=== PATIENT | female | born 1975 | race Caucasian/White ===

== ENCOUNTER → 2019-12-07 14:40 | Outpatient (CLI) | payer OTHER, SELFPAY ==
--- NOTE | ~2019-12-07 | XR_ITS ---
XR chest 2V 12/07/2019 15:19 Indication: Shortness of breath Procedure: 2 view chest Comparison: No prior studies for comparison. Findings: Heart size normal. No focal air space disease, pulmonary edema, pleural effusion or suspect ed pneumothorax. Impression: 1: No acute cardiopulmonary disease. Reviewed, dictated and finalized at location B. Impression: 1: No acute cardiopulmonary disease.
== END ==
PROVIDERS: PCP Internal Medicine; Visit Provider Internal Medicine
DX: J06.9 Acute upper respiratory infection, unspecified (principal)
CPT/HCPCS: 71046

== ENCOUNTER 2019-12-07 15:11 | Emergency (ER) | payer OTHER, SELFPAY ==
--- NOTE | 2019-12-07 15:22 | ED.EAR ---
HPI - Ear Problem General Chief complaint: Ear Stated complaint: ear pain/neck pain Time Seen by Provider: 12/07/19 15:33 Source: patient and RN notes reviewed Mode of arrival: ambulatory Limitations: no limitations History of Present Illness HPI Narrative: 44-year-old female presents concern for bilateral ear pain, worse on the right, feeling of swollen glands. Reports she has had a 2-month history of sinus congestion, pressure, drainage for which she had a Z-Javad which she finished 5 days ago. She reports some improvement in her symptoms, however symptoms did not resolve. Reports symptoms have worsened with ear pain. She denies fever, malaise, decreased hearing. MD Complaint: ear pain Related Data Home Medications Medication Instructions Recorded Confirmed cetirizine [Zyrtec] 10 mg PO DAILY 12/07/19 12/07/19 omeprazole 20 mg PO DAILY 12/07/19 12/07/19 Allergies Allergy/AdvReac Type Severity Reaction Status Date / Time Penicillins Allergy Rash Verified 12/07/19 15:39 Review of Systems Review of Systems: Narrative: CONSTITUTIONAL: Denies malaise, chills, sweats, or fever. EYES: Denies visual changes, redness, or discharge. ENT: Reports rhinorrhea, congestion, sinus pain, otalgia. Denies. CARDIOVASCULAR: Denies chest pain, palpitations, or edema. RESPIRATORY: Reports cough. Denies dyspnea. GASTROINTESTINAL: Denies abdominal pain, nausea, vomiting, diarrhea SKIN: Denies rash or itching. MUSCULOSKELETAL: Denies myalgia. NEUROLOGIC: Denies headache. All systems reviewed & are unremarkable except as noted in HPI and below PMFSH Comments At time of signature, agree with nursing past medical, surgical, social and family history. There is no relevant family history pertinent to the presenting complaint Exam Narrative: Exam Narrative: GENERAL: Well-appearing, well-nourished, and in no acute distress. HEAD: Normocephalic EYES: PERRLA, conjunctivae clear ENT: Nares clear, turbinates edematous and erythematous, sinus tenderness. Mucous membranes moist. Left TM pearly montague with dull light reflex, right TM erythematous and bulging; no tragal tenderness. Oropharynx not erythematous without lesions. Tonsils not enlarged and without exudate, no drooling, no hoarseness, no trismus, uvula midline. NECK: Supple. No lymphadenopathy CHEST: Clear to auscultation, breath sounds equal. No wheezing, rhonchi, rales, or stridor. No respiratory distress, speaks in full sentences. HEART: Regular rate and rhythm. No murmur heard. SKIN: Warm, dry, no rash. NEURO: Alert and oriented x3. PSYCH: Normal mood and affect Course Course Emergency Course: Patient is aware of diagnosis, understands and agrees to treatment plan. Anticipatory guidance given. Patient agrees to follow-up as directed and is aware of reasons to seek care at the emergency department. Portions of this record may have been created with voice recognition software Vital Signs Vital signs: Vital Signs Temperature 99.3 F 12/07/19 15:24 Pulse Rate 84 12/07/19 15:24 Respiratory Rate 16 12/07/19 15:24 Blood Pressure 122/90 12/07/19 15:24 Pulse Oximetry 98 12/07/19 15:24 Temperature 99.3 F 12/07/19 15:24 Pulse Rate 84 12/07/19 15:24 Respiratory Rate 16 12/07/19 15:24 Blood Pressure 122/90 12/07/19 15:24 Pulse Oximetry 98 12/07/19 15:24 Reviewed. Medical Decision Making MDM Narrative Medical decision making narrative: Differential diagnosis considered: Dennis virus, strep pharyngitis, allergic rhinitis, upper respiratory tract infection, sinusitis, rhinosinusitis, nasopharyngitis. viral pharyngitis, otitis media, otitis externa, pneumonia, bronchitis, viral cough syndrome, viral syndrome, and influenza. Exam findings show no acute concerns or changes; patient is non-toxic appearing and is in no distress. Patient is appropriate for outpatient treatment and follow-up. Vital Signs Vital Signs: Vital Signs Temperature 99.3 F 12/07/19 15:24
[2019-12-07 15:24] VITALS: BP 122/90; PULSE 84; RESP 16; TEMP 37.4; O2SAT 98
== END 2019-12-07 15:48 | disposition home or self-care (01) ==
PROVIDERS: Emergency Provider Nurse Practitioner; PCP Internal Medicine
DX: H66.001 Acute suppurative otitis media without spontaneous rupture of ear drum, right ear (principal); J01.90 Acute sinusitis, unspecified; Z85.41 Personal history of malignant neoplasm of cervix uteri; Z92.21 Personal history of antineoplastic chemotherapy; Z92.3 Personal history of irradiation
CPT/HCPCS: 99213; G0463

== ENCOUNTER 2019-12-23 08:32 | Emergency (ER) | payer OTHER, SELFPAY ==
[2019-12-23 08:36] VITALS: BP 114/83; PULSE 94; RESP 16; TEMP 36.4; O2SAT 99
--- NOTE | 2019-12-23 08:44 | ED.GENADULT ---
HPI - General Adult General Chief complaint: Ear Stated complaint: ear pain/pressure Time Seen by Provider: 12/23/19 08:50 Source: patient and RN notes reviewed Mode of arrival: ambulatory Limitations: no limitations History of Present Illness HPI narrative: 44-year-old female complains of bilateral otalgia, pressure, clogged feeling, facial pressure, and intermittent decrease hearing for the past 2 months. Estehpania says that she has been treated for ear infections with azithromycin and Levaquin with relief but symptoms returns shortly after treatment. Symptoms increased over the past 24 hours. Zyrtec D with little relief. Denies itching or drainage. Denies URI symptoms. No facial swelling. Denies rhinorrhea and nasal congestion. Intermittent sore throat. No high fevers, drooling, neck or throat swelling. No chest pain or shortness of breath. Remains active. Denies being , LMP 6 years ago. The patient reports she have not been diagnosed with COVID-19. The patient reports she is not waiting for the results of a COVID-19 lab test. The patient reports she do not have chills, weakness, or fatigue. The patient reports no she do not have a new or worsening cough or shortness of breath. Denies chest pain. The patient reports she do not have any loss of taste, nausea, vomiting, abdominal pain, and diarrhea. Tolerating po intake well. Denies recent traveling. Denies concerns for COVID-19 or exposures been home with limited outdoor exposure except for essential household needs and return home. At this time, patient is not suspected of having COVID-19. Some parts of this dictation were generated by voice recognition software and may contain typographical and/or grammatical inaccuracies. Related Data Home Medications Medication Instructions Recorded Confirmed omeprazole 20 mg PO DAILY 12/07/19 12/23/19 Allergies Allergy/AdvReac Type Severity Reaction Status Date / Time Penicillins Allergy Rash Verified 12/07/19 15:39 erythromycin base AdvReac Chest Pain Verified 12/23/19 09:04 Review of Systems Review of Systems: Narrative: CONSTITUTIONAL: Denies fever, chills, sweats. EYES: Denies visual changes, redness, discharge. ENT: Complains of sore throat, otalgia, bilateral ear pressure, clogged, intermittent decrease hearing. Denies rhinorrhea, congestion, tinnitus. CARDIOVASCULAR: Denies chest pain, palpitations, edema. RESPIRATORY: Denies dyspnea, wheezing, cough. GASTROINTESTINAL: Denies abdominal pain, nausea, vomiting, diarrhea. GENITOURINARY: Denies dysuria, hematuria, abnormal discharge. SKIN: Denies rash or itching. MUSCULOSKELETAL: Denies acute back pain, joint pain, or myalgia. NEUROLOGIC: Denies numbness or focal weakness. PSYCHIATRIC: Denies anxiety or depression. All systems reviewed & are unremarkable except as noted in HPI and below. [facility] Past Medical History Medical History (Updated 12/23/19 @ 09:12 by DIANNA Tubbs) Cervical cancer That included lymph nodes and received radiation and chemo delivery delivered Enlarged liver Hernia Surgical History Surgical History (Updated 12/23/19 @ 09:03 by DIANNA Tubbs) H/O section X3 Family History Family History (Updated 12/23/19 @ 09:04 by DIANNA Tubbs) Father Hypertension Cerebrovascular accident Mother Diabetes mellitus Paranoid schizophrenia Social History Social History (Updated 12/23/19 @ 09:05 by DIANNA Tubbs) Smoking status: Former smoker Tobacco type: cigarettes Second hand tobacco smoke exposure: No Smoking end date: 02/17/99 Alcohol intake: never Substance use: never Living arrangements: with family Occupation/Education: unemployed Gender identity (if verbalized by the patient): Female Sexual Orientation (if Verbalized by the Patient): Straight or Heterosexual Comments At time of signature, agree with nurse past medical, surgical, social
== END 2019-12-23 09:15 | disposition home or self-care (01) ==
PROVIDERS: Emergency Provider Nurse Practitioner Family; PCP Internal Medicine
DX: H66.003 Acute suppurative otitis media without spontaneous rupture of ear drum, bilateral (principal); J06.9 Acute upper respiratory infection, unspecified; Z87.891 Personal history of nicotine dependence; Z85.41 Personal history of malignant neoplasm of cervix uteri
CPT/HCPCS: 87081; 87880; 99213; G0463

== ENCOUNTER 2020-01-31 16:30 | Emergency (ER) | payer OTHER, SELFPAY ==
--- NOTE | ~2020-01-31 | XR_ITS ---
EXAMINATION: XR toe 1st RT min 2V DATE: 01/31/2020 16:58 INDICATION: Spot under the toenail at the right great toe. TECHNIQUE: Dorsal plantar, lateral and oblique views of the right great toe were obtained. COMPARISON: None FINDINGS: Alignment is normal. No fracture. Joint spaces are normal. No cortical erosions or periosteal reactio n. Soft tissues are unremarkable. IMPRESSION: Negative right great toe radiographs. Reviewed, dictated and finalized at location B. SIFICATIONS OFFICER CC/CM
[2020-01-31 16:38] VITALS: BP 131/87; PULSE 96; RESP 20; TEMP 36.7; O2SAT 100
--- NOTE | 2020-01-31 17:10 | ED.SKABFB ---
HPI - Skin/Abscess/Foreign Bdy General Chief complaint: Skin/Abscess/Foreign Body Stated complaint: spot under big toe nail Time Seen by Provider: 01/31/20 17:10 Source: patient and RN notes reviewed Mode of arrival: ambulatory Limitations: no limitations History of Present Illness HPI narrative: 44-year-old female who presents to [facility] care with complaints of having area of discoloration under lateral aspect of her right toenail and her doctor wants her to have x-ray done. Patient states that area has been there for about a month with no known injury to area. Patient states no pain to right great toe, no discoloration of her nail noted, no redness to tissue of right great toe or nail bed, patient denies any pain. MD complaint: discoloration (to right great toenail ) Onset (ago): month(s) (1month) Tetanus up to date: unsure Location: L foot (left great toe) Associated symptoms: denies other symptoms Treatments prior to arrival: none Related Data Home Medications Medication Instructions Recorded Confirmed omeprazole 20 mg PO DAILY 12/07/19 01/31/20 sulfamethoxazole-trimethoprim 1 tablet PO Q12H 01/31/20 01/31/20 [Bactrim DS] Allergies Allergy/AdvReac Type Severity Reaction Status Date / Time Penicillins Allergy Rash Verified 01/31/20 17:05 erythromycin base AdvReac Chest Pain Verified 01/31/20 17:05 Review of Systems Review of Systems: Narrative: CONSTITUTIONAL: Denies fever, chills, or sweats. EYES: Denies visual changes, redness, or discharge. ENT: Denies rhinorrhea, congestion, sore throat, or otalgia. CARDIOVASCULAR: Denies chest pain, palpitations, or edema. RESPIRATORY: Denies cough or dyspnea. GASTROINTESTINAL: Denies abdominal pain, nausea, vomiting, or diarrhea. GENITOURINARY: Denies dysuria or hematuria. SKIN: Denies rash or itching.horizontal area of discoloration to lateral area under right great toenail, no redness of tissue or any pain MUSCULOSKELETAL: Denies back pain, joint pain, or myalgia. NEUROLOGIC: Denies headache, numbness, or weakness. PSYCHIATRIC: Denies anxiety or depression. All systems reviewed & are unremarkable except as noted in HPI and below [facility] Past Medical History Medical History (Updated 02/01/20 @ 00:00 by Lito Padilla) Cervical cancer That included lymph nodes and received radiation and chemo delivery delivered Enlarged liver Hernia Surgical History Surgical History (Updated 12/23/19 @ 09:03 by DIANNA Tubbs) H/O section X3 Family History Family History (Updated 12/23/19 @ 09:04 by DIANNA Tubbs) Father Hypertension Cerebrovascular accident Mother Diabetes mellitus Paranoid schizophrenia Social History Social History (Updated 12/23/19 @ 09:05 by DIANNA Tubbs) Smoking status: Former smoker Tobacco type: cigarettes Second hand tobacco smoke exposure: No Smoking end date: 02/17/99 Alcohol intake: never Substance use: never Gender identity (if verbalized by the patient): Female Comments At time of signature, agree with nursing past medical, surgical, social and family history. There is no relevant family history pertinent to the presenting complaint Exam Narrative: Exam Narrative: GENERAL: Well-appearing, well-nourished, and in no acute distress. HEAD: Normocephalic, atraumatic. EYES: PERRLA and EOMI. ENT: Nares clear, no rhinorrhea or epistaxis. Mucous membranes moist. NECK: Supple.no lymphadenopathy CHEST: Clear to auscultation. No respiratory distress.SAO2 100% on room air HEART: Regular rate and rhythm. No murmur heard. Normal peripheral pulses. ABDOMEN: Soft, nontender, nondistended, normal active bowel sounds. EXTREMITIES: Normal range of motion. No edema. SKIN: Warm, dry, no rash. brownish horizontal area of discoloration to the lateral area under right first toenail, no discoloration of nail, no pain to toe or any redness of nail bed or surrounding tissue, patient denies any
== END 2020-01-31 17:29 | disposition home or self-care (01) ==
PROVIDERS: Emergency Provider Registered Nurse; PCP Physician Assistant
DX: L60.8 Other nail disorders (principal); Z87.891 Personal history of nicotine dependence; Z85.41 Personal history of malignant neoplasm of cervix uteri
CPT/HCPCS: 73660; 99213; G0463

== ENCOUNTER 2024-02-07 19:34 | Emergency (ER) | payer OTHER, SELFPAY ==
[2024-02-07 19:44] VITALS: BP 132/74; PULSE 66; RESP 16; TEMP 37.2; O2SAT 98
--- NOTE | 2024-02-07 19:49 | ED_ITS ---
HPI - Ear Problem General Chief complaint: Ear Stated complaint: Right Ear Problem Time Seen by Provider: 02/07/24 19:49 Source: patient, RN notes reviewed and old records reviewed Mode of arrival: ambulatory Limitations: no limitations History of Present Illness HPI Narrative: 48 year old female presents to [facility] care with 3 day history of right ear pain and right tonsil pain. Patient reports that she took two doses of Bactrim that she had at home for her symptoms and has taken some Tylenol and is also using her nasal spray for her symptoms. Patient reports no known fevers chills or sweats or any body aches.. MD Complaint: ear pain Location: right ear Duration: constant Severity: severe Discharge from ear: Reports no Treatment prior to arrival: oral analgesic and other (one dose of Bactrim) Related Data Home Medications ?Medication ?Instructions ?Recorded ?Confirmed ?Last Taken ?Type omeprazole 20 mg capsule,delayed 20 mg PO DAILY 12/07/19 01/31/20 Unknown History release albuterol sulfate 90 mcg/actuation 2 puff inhalation Q4-6H PRN 02/07/24 Unknown History aerosol inhaler shortness of breath or wheezing empagliflozin 25 mg tablet 25 mg PO DAILY 02/07/24 Unknown History (Jardiance) fluticasone propionate 50 2 spray intranasal DAILY 02/07/24 Unknown History mcg/actuation nasal spray,suspension sitagliptin phosphate 100 mg 100 mg PO DAILY 02/07/24 Unknown History tablet (Januvia) Allergies Allergy/AdvReac Type Severity Reaction Status Date / Time Penicillins Allergy Rash Verified 02/07/24 19:53 erythromycin base AdvReac Chest Pain Verified 02/07/24 19:53 Review of Systems Review of Systems: CONSTITUTIONAL: Denies malaise, chills, sweats, or fever. EYES: Denies visual changes, redness, or discharge. ENT: Reports rhinorrhea, congestion, no sinus pain, right otalgia and right side throat pain. CARDIOVASCULAR: Denies chest pain, palpitations, or edema. RESPIRATORY: Reports no acute cough.? Denies dyspnea. GASTROINTESTINAL: Denies abdominal pain, nausea, vomiting, diarrhea SKIN: Denies rash or itching. MUSCULOSKELETAL: Denies myalgia. NEUROLOGIC: Denies headache. All systems reviewed & are unremarkable except as noted in HPI and below PMFSH Past Medical History Medical History (Updated 02/09/24 @ 19:31 by Faina Oquendo NP) Ear infection Diabetes Cervical cancer That included lymph nodes and received radiation and chemo delivery delivered Hernia Enlarged liver Surgical History Surgical History (Updated 12/23/19 @ 09:03 by DIANNA uTbbs) H/O section X3 Family History Family History (Updated 12/23/19 @ 09:04 by DIANNA Tubbs) Father Hypertension Cerebrovascular accident Mother Diabetes mellitus Paranoid schizophrenia Social History Social History (Updated 12/23/19 @ 09:05 by DIANNA Tubbs) Smoking status: Former smoker Tobacco type: cigarettes Second hand tobacco smoke exposure: No Smoking end date: 02/17/99 Alcohol intake: never Substance use: never Living arrangements: with family Occupation/Education: unemployed Gender identity (if verbalized by the patient): Female Sexual Orientation (if Verbalized by the Patient): Straight or Heterosexual Comments At time of signature, agree with nursing past medical, surgical, social and family history. There is no relevant family history pertinent to the presenting complaint Exam Narrative: GENERAL: Well-appearing, well-nourished, and in no acute distress. HEAD: Normocephalic EYES: PERRLA, conjunctivae clear ENT: Nares clear, turbinates edematous and erythematous, clear discharge. Mucous membranes moist.Right TM red and bulging, Left TM pearly montague with dull light reflex ; no tragal tenderness. Oropharynx erythematous without lesions. Tonsils not enlarged and without exudate, no drooling, no hoarseness, no trismus, uvula midline.some post nasal drainage NECK: Supple. No lymphadenopathy CHEST: Clear to auscultation, breath sounds equal. No wheezing, rhonchi, rales, or stridor. No respiratory distress, speaks in full sentences.SAO2 98% on room air HEART: Regular rate and rhythm. No murmur heard. SKIN: Warm, dry, no rash. NEURO: Alert and oriented x3. PSYCH: Normal mood and affect Course Course Emergency Course: Patient is aware of diagnosis, understands and agrees to treatment plan.? Anticipatory guidance given.? Patient agrees to follow-up as directed and is aware of reasons to seek care at the emergency department. Portions of this record may have been created with voice recognition software Level of Care: Express Care Visit Vital Signs Vital signs: Vital Signs Temperature 37.2 C 02/07/24 19:44 Pulse Rate 66 02/07/24 19:44 Respiratory Rate 16 02/07/24 19:44 Blood Pressure 132/74 02/07/24 19:44 Pulse Oximetry 98 02/07/24 19:44 Oxygen Delivery Room Air 02/07/24 19:44 Temperature 37.2 C 02/07/24 19:44 Pulse Rate 66 02/07/24 19:44 Respiratory Rate 16 02/07/24 19:44 Blood Pressure 132/74 02/07/24 19:44 Pulse Oximetry 98 02/07/24 19:44 Oxygen Delivery Room Air 02/07/24 19:44 Reviewed Medical Decision Making Differential Diagnosis Differential Diagnosis: URI,otitis media, pharyngitis, viral infection Medical Records Medical records reviewed: Yes I reviewed the external patient's medical records. Vital Signs Vital Signs: Vital Signs Temperature 37.2 C 02/07/24 19:44 Pulse Rate 66 02/07/24 19:44 Respiratory Rate 16 02/07/24 19:44 Blood Pressure 132/74 02/07/24 19:44 Pulse Oximetry 98 02/07/24 19:44 Oxygen Delivery Room Air 02/07/24 19:44 Temperature 37.2 C 02/07/24 19:44 Pulse Rate 66 02/07/24 19:44 Respiratory Rate 16 02/07/24 19:44 Blood Pressure 132/74 02/07/24 19:44 Pulse Oximetry 98 02/07/24 19:44 Oxygen Delivery Room Air 02/07/24 19:44 Critical Care Time Critical Care Time Critical Care Time: No Discharge Plan Discharge Clinical Impression: Otitis media, right Qualifiers: Otitis media type: serous Chronicity: acute Recurrence: not specified as recurrent Qualified Code(s): H65.01 - Acute serous otitis media, right ear Patient Disposition: Home, Self-Care Condition: Stable Instructions: Antibiotic Form, Ear Infection (GEN) Additional Instructions: Increase fluids especially juices and water [id number] cough and cold medicine of your choice for your symptoms Zyrtec or Claritin daily Tylenol or ibuprofen for any fever pain heat to the face 20-30 minutes 4-6 times a day for pain Salt water gargles, throat lozenges or throat sprays as desired Antibiotic as directed--finished the medication If your symptoms persist, change or worsen significantly before you can contact your personal physician then please, without delay, go to the emergency department for further evaluation. Follow-up with PCP in 7-10 days or sooner if needed Follow up with PCP soon in regards to your blood pressure which is elevated above threshold for referral. Blood pressure above 120/80 may indicate pre- hypertension. 132/74 Patient Language: Faroese Prescriptions: New azithromycin 250 mg tablet See Rx Instructions .ROUTE .COMPLEX Qty: 6 0RF Rx Instructions: For 250 mg dose pack: take 500 mg today (day 1), then 250 mg for 4 days (days 2-5) No Action omeprazole 20 mg capsule,delayed release(DR/EC) 20 mg PO DAILY Jardiance 25 mg tablet 25 mg PO DAILY Januvia 100 mg tablet 100 mg PO DAILY albuterol sulfate 90 mcg/actuation HFA aerosol inhaler 2 puff INHALATION Q4-6H PRN (Reason: shortness of breath or wheezing) fluticasone propionate 50 mcg/actuation spray,suspension 2 spray INTRANASAL DAILY Follow-up/Referrals: Ryley,ROSEY Carpenter [Primary Care Provider] - Time of Disposition: 19:59 Quality Nicolas Coma Scale Eyes: Open Verbal: Oriented and Alert Motor: Follows Commands Nicolas Coma Total Score: 15
== END 2024-02-07 20:09 | disposition home or self-care (01) ==
PROVIDERS: Emergency Provider Registered Nurse; PCP Physician Assistant
DX: H65.01 Acute serous otitis media, right ear (principal); Z87.891 Personal history of nicotine dependence; E11.9 Type 2 diabetes mellitus without complications; Z79.84 Long term (current) use of oral hypoglycemic drugs; Z85.41 Personal history of malignant neoplasm of cervix uteri; Z92.21 Personal history of antineoplastic chemotherapy; Z92.3 Personal history of irradiation
CPT/HCPCS: 99203; G0463

== ENCOUNTER 2024-05-29 16:40 | Emergency (ER) | payer OTHER, SELFPAY ==
--- OUTSIDE RECORDS SUMMARY | 2024-05-29 16:43 | XMS_ITS | Referral Summary ---
Author Organization [facility] Address [address] [place] [address] Care Team Providers Care Care Mgr Name Role Phone Jourdan Hedrick Primary Care Provider [phone] Encounters Date Type Department Care Team Description 05/05/2024 1:00 PM CDT Office Visit [facility] Diabetes Endocrine Care at [address] [address] Annetta Kearney, Type 2 diabetes mellitus with hyperglycemia, without long-term current use of insulin (HCC) (Primary Dx) from Last 3 Months Allergies Active Allergy Reactions Criticality Noted Date Comments Ciprofloxacin Rash Medium 06/08/2020 Erythromycin Other (See comments) Reaction: Unknown, , Metronidazole Other (See comments) Low 02/25/2019 Yeast infection Gadolinium-Containing Contrast Media Unknown 01/07/2023 Contrast Media (Gadolinium-Based): (Other (Unspecified)) Iodinated Contrast Media Shortness of breath,Other (See comments) High Reaction: Short of breath, Throat Swelling, Lactose Unknown 07/16/2023 Penicillins Hives,Swelling Medium Reaction: Unknown, , Medications fluticasone propionate (FLONASE) 50 mcg/actuation nasal sprayIndication s:Nasal congestion,Anos mason Administer 2 sprays into each nostril daily 16 g 11 1 Active Jardiance 25 mg tablet 4 Active omeprazole (PriLOSEC) 20 mg capsule Take by mouth daily 4 Active albuterol HFA (PROVENTIL HFA,VENTOLIN HFA,PROAIR HFA) 90 mcg/actuation inhaler Inhale 2 puffs every 6 (six) hours as needed 4 Active magnesium citrate solution TAKE 150ML BY MOUTH TWICE DAILY NEEDED FOR CONSTIPATION 4 Active senna-docusate (PERICOLACE) 8.6-50 mg Take 1-2 pills nightly for constipation management. 180 tablet 3 4 Active polyethylene glycol (MIRALAX) 17 gram/dose bulk powder Take 1 capful daily as needed for constipation management. 595 g 3 4 Active nystatin cream Apply topically 2 (two) times a day 4 Active Dexcom G7 Outboard Technician misc Use as directed. 1 each 4 Active Additional Information Patient not taking.Reported on 05/05/2024 Dexcom G7 Sensor device Use as directed. Change sensor every 10 days. 3 each 4 Active Additional Information Patient not taking.Reported on 05/05/2024 hydrocortisone (ANUSOL-HC) 2.5 % rectal cream For hemorrhoid management, squeeze small amount into rectum using internal applicator and also apply small amount externally to rectum up to twice daily as needed. 28 g 5 4 Active SITagliptin phosphate (Januvia) 100 mg tablet Take 1 tablet (100 mg total) by mouth daily Active tirzepatide (Mounjaro) 2.5 mg/0.5 mL pen injector Inject 0.5 mL (2.5 mg total) under the skin once a week 2 mL 6 4 Active Additional Information Patient not taking.Reported on 05/05/2024 metFORMIN XR (GLUCOPHAGE XR) 500 mg 24 hr tablet Take 1 tablet (500 mg total) by mouth daily with breakfast 90 tablet 3 5 Active rosuvastatin (CRESTOR) 5 mg tablet Take 1 tablet (5 mg total) by mouth daily 90 tablet 3 5 05/06/19 26 Active Active Problems Problem Noted Date Diagnosed Date Irritable bowel syndrome with constipation 07/15 Rectal bleeding 11/01/2020 Nasal congestion 07/12/2020 Assessment & Plan (07/12/2020 2:52 PM CDT): Flonase 2 sprays into each nostril while looking down over the sink, do not sniff in or blow nose after use for at least 30 minutes Wear respirator when using spray paint or primer Hepatic steatosis 06/08/2020 Hepatomegaly 06/08/2020 Diverticulitis of large inte scotty without perforation or abscess without bleeding 06/08/2020 Gastroesophageal reflux disease without esophagi tis 06/08/2020 Diverticulosis of colon 06/08/2020 Chronic constipation 06/08/2020 Type 2 diabetes mellitus 03/01/2018 Mixed anxiety and depressive disorder 02/23/2018 Fibromyalgia 05/27/2017 Malignant tumor of cervix 09/20/2016 Tension headache 07/03/2013 Overview (05/22/2016): Tension headache Hypertension 07/03/2013 Overview (05/24/2016): HTN (hypertension) 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 Adiposity 06/13/2011 Overview (05/22/2016): Obesity Severe obstructive sleep apnea 06/13/2011 Overview (05/24/2016): Obstructive sleep apnea syndrome in adult Hypersomnia with sleep apnea 06/13/2011 Overview (05/24/2016): Hypersomnia with sleep apnea Immunizations Immunization Administration Dates Next Due Influenza, Trivalent, IM (MDV) 12/19/2014 Social History Tobacco Use Types Packs/Day Years Used Date Smoking Tobacco: Former Cigarettes Q uit: 2001 Smokeless Tobacco: Never Alcohol Use Standard Drinks/Week Comments No 0 (1 standard drink = 0.6 oz pur e alcohol) AUDIT-C Answer Date Recorded Q1: How often do you have a drink containing alc ohol? Never 01/13/2024 Average Number of Drinks Not on file 024 Frequency of Binge Drinking Not on file 12/19 Comments No Sex and Gender Information Value Date Recorded Sex Assigned at Not on file Legal Sex Female 12:57 AM MEDICAL HOUSEKEEPER Gender Identity Not on file Sexual Orientation Not on file Last Filed Vital Signs Vital Sign Reading Time Taken Comments Blood Pressure 130/82 05/05/2024 12:56 PM CDT Pulse 84 05/05/2024 12:56 PM CDT Temperature 35.8 C (96.4 F) 11/01/2020 1:01 PM CDT Respiratory Rate 20 06/08/2020 1:39 PM CDT Oxygen Saturation 97% 01/13/2024 9:07 AM MEDICAL HOUSEKEEPER Inhaled Oxygen Concentration - - Weight 76.6 kg (168 lb 12.8 oz) 025 12:56 PM CDT Height 162.6 cm (5' 4 ) 05/05/2024 12:5 6 PM CDT Body Mass Index 28.97 05/05/2024 12:56 PM CDT Plan of Treatment Not on file Procedures Procedure Name Priority Date/Time Associated Diagnosis Comments POCT HEMOGLOBIN A1C Routine 05/05/2024 1 :08 PM CDT Type 2 diabetes mellitus with hyperglycemia, without long-term current use of insulin (HCC) COMPREHENSIVE METABOLIC PANEL Routine 08/25/2023 from Last 3 Months or Most Recently Relevant to Health Maintenance Results * POCT hemoglobin A1c (05/05/2024 1:08 PM CDT) Pathologist [facility] Hemoglobin A1C, POC 7.2 4.0 - 5.6 % Blood 05/05/2024 1:08 PM CDT Annetta Kearney DO POINT OF CARE TEST ORDERABL ES Final Result * Comprehensive metabolic panel (08/25/2023) Pathologist [facility] SCRIBED Sodium 140 - - - mmol/L EXTERNAL LAB SCRIBED Potassium 4.5 - - - mmol/L EXTERNAL LAB SCRIBED Chloride 101.5 - - - mmol/L EXTERNAL LAB SCRIBED Carbon Dioxide 29 - - - mmol/L EXTERNAL LAB SCRIBED Anion Gap 10 - - - mmol/L EXTERNAL LAB SCRIBED Urea Nitrogen (BUN) 16 - - - mg/dl EXTERNAL LAB SCRIBED Creatinine 0.86 - - - mg/dl EXTERNAL LAB SCRIBED Glucose 276 - - - mg/dl EXTERNAL LAB SCRIBED Calcium 9.5 - - - mg/dl EXTERNAL LAB SCRIBED Bilirubin 0.3 - - - mg/dl EXTERNAL LAB SCRIBED Plasma Protein 7.2 - - - g/dl EXTERNAL LAB SCRIBED Albumin 3.6 - - - g/dl EXTERNAL LAB SCRIBED Alkaline Phosphatase 83 - - - Units/L EXTERNAL LAB SCRIBED Alanine Transaminase (ALT) 31 - - - Units/L EXTERNAL LAB SCRIBED Aspartate Transaminase (AST) 24 - - - Units/L EXTERNAL LAB SCRIBED eGFR in >=60 - - - EXTERNAL LAB SCRIBED eGFR in NonAfrican Cambodian >=60 - - - EXTERNAL LAB Blood 08/25/2023 Historical Provider LAB BLOOD ORDERABLES Ashley diaz Result EXTERNAL LAB from Last 3 Months or Most Recently Relevant to Health Maintenance Insurance [employer] [facility] [employer] [facility] Care Teams Care Mgr Relationship Specialty Start Date End Date Jourdan Hedrick PA [address] [place] [address] PCP - General Family Practice 06/08/20
--- OUTSIDE RECORDS SUMMARY | 2024-05-29 16:43 | XMS_ITS | Encounter Summary ---
Author Organization [facility] Care Team Providers Care Software Project Manager Name Role Phone Jourdan Hedrick Primary Care Provider [phone] Encounter Details Date Type Department Care Team (Latest Contact Info) Description 05/28/2024 Travel Social History Tobacco Use Types Packs/Day Years Used Date Smoking Tobacco: Never Smokeless Tobacco: Never Alcohol Use Standard Drinks/Week Comments No 0 (1 standard drink = 0.6 oz pur e alcohol) Comments No Sex and Gender Information Value Date Recorded Sex Assigned at Female 05/29/2024 2:10 AM CDT Legal Sex Female 12:22 AM CDT Gender Identity Female 05/29/2024 2:10 AM CDT Sexual Orientation Not on file documented as of this encounter Plan of Treatment Not on file documented as of this encounter Visit Diagnoses Not on filedocumented in this encounter Care Teams Software Project Manager Relationship Specialty Start Date End Date Jourdan Hedrick PAC [address] [place] [id number] PCP - General Physician Portfolio Administrator 04/24/20 documented as of this encounter
--- OUTSIDE RECORDS SUMMARY | 2024-05-29 16:43 | XMS_ITS | Encounter Summary ---
Author Organization [facility] Address [address] [place] [address] Phone Care Team Providers Care Information Lead Name Role Phone Jourdan Hedrick PAC Primary Care Provider [phone] Evaristo Garcia MD Unavailable Encounter Details Date Type Department Care Team (Late st Contact Info) Description 01/31/2023 [facility] [address] [place] [address] Jourdan Hedrick, PAC [address] [place] [address] Social History Tobacco Use Types Packs/Day Years [...] Diagnoses Not on filedocumented in this encounter Additional Health Concerns Infection Onset Date Last Indicated Resolved Time COVID - 19 04/01/2024 04/01/2024 04/01/2024 8:05 PM MANAGER CORPORATE RESPONSIBILITY Influenza 04/01/2024 04/01/2024 04/08/2024 12:1 6 AM MANAGER CORPORATE RESPONSIBILITY documented as of this encounter Care Teams Information Lead Relationship Specialty Start Date End Date Jourdan Hedrick, [facility] [address] [place] [address] PCP - General Physician Portrait Painter 04/24/20 Evaristo Garcia MD [address] [address] Consulting Physician Endocrinology 10/10/23 12/25/23 documented as of this encounter
--- OUTSIDE RECORDS SUMMARY | 2024-05-29 16:43 | XMS_ITS | Encounter Summary ---
Author Organization [facility] Address [address] [place] [address] Phone Care Team Providers Care Electrical Parts Reconditioner Name Role Phone Jourdan Hedrick PAC Primary Care Provider [phone] Evaristo Garcai MD Unavailable Encounter Details Date Type Department Care Team (Late st Contact Info) Description 01/31/2023 [facility] [address] [place] [address] Jourdan Hedrick, PAC [address] [place] [address] Social History Tobacco Use Types [...] - 19 04/01/2024 04/01/2024 04/01/2024 8:05 PM FLAT BED OPERATOR Influenza 04/01/2024 04/01/2024 04/08/2024 12:1 6 AM FLAT BED OPERATOR documented as of this encounter Care Teams Electrical Parts Reconditioner Relationship Specialty Start Date End Date Jourdan eHdrick, [facility] [address] [place] [address] PCP - General Physician Ventilating Expert 04/24/20 Evaristo Garcia MD [address] [address] Consulting Physician Endocrinology 10/10/23 12/25/23 documented as of this encounter
--- OUTSIDE RECORDS SUMMARY | 2024-05-29 16:43 | XMS_ITS | Clinical Summary ---
Author Organization [facility] Address [address] [place] [address] Care Team Providers Care Call Center Coordinator Name Role Phone Jourdan Hedrick Primary Care Provider [phone] Allergies Active Allergy Reactions Criticality Noted Date [...] times a day 4 Active Dexcom G7 Commercial Relationship Manager misc Use as directed. 1 each 4 Active Additional Information Patient not taking.Reported on 05/05/2024 Dexcom G7 Sensor device Use as directed. Change sensor every 10 days. 3 each 11 4 Active Additional Information Patient not taking.Reported [...] 06/13/2011 Overview (05/24/2016): Hypersomnia with sleep apnea Encounters Date Type Department Care Team Description 05/05/2024 1:00 PM CDT Office Visit [facility] Diabetes Endocrine Care at [address] [address] Annetta Kearney, Type 2 diabetes mellitus with hyperglycemia, without long-term current use of insulin (HCC) (Primary Dx) from Last 3 Months Immunizations Immunization Administration Dates Next Due Influenza, Trivalent, IM (MDV) 12/19/2014 Surgical History Surgery Date Site/Laterality Comments ABDOMINAL SURGERY HERNIA REPAIR SECTION Medical History Medical History Date Comments Seizure disorder (HCC) Seizure d isorder Tension headache Headache, tensi on Hypertension Hypertension Cervical cancer (HCC) Family History Medical History Relation Name Comments Migraines Father Migraine; Seizures Father Seizure disorde r; Diabetes Mother Diabetes mellit us; Hypertension Mother Hypertension; Schizophrenia Mother Schizophrenia; Cancer Other 1 Family history of Cancer, unknown; Parkinsonism Other 2 Family history of Parkinson's disease; Stroke Other 3 Family history of Stroke; Relation Name Status Comments Father Mother Other 1 Other 2 Other 3 Social History Tobacco Use Types Packs/Day Years Used Date Smoking Tobacco: Former Cigarettes Q uit: 2000 Smokeless Tobacco: Never Alcohol Use Standard Drinks/Week [...] on file Legal Sex Female 12:57 AM PAEDIATRIC PHYSIOTHERAPIST Gender Identity Not on file Sexual Orientation Not on file Obstetrics History Last Filed Vital Signs Vital Sign Reading Time Taken Comments Blood Pressure 130/82 05/05/2024 12:56 PM CDT Pulse 84 05/05/2024 12:56 PM CDT Temperature 35.8 C (96.4 F) 11/01/2020 1:01 PM CDT Respiratory Rate 20 06/08/2020 1:39 PM CDT Oxygen Saturation 97% 01/13/2024 9:07 AM PAEDIATRIC PHYSIOTHERAPIST Inhaled Oxygen Concentration - - Weight 76.6 kg (168 lb 12.8 oz) 025 12:56 PM CDT Height 162.6 cm (5' 4 ) 05/05/2024 12:5 6 PM CDT Body Mass Index 28.97 05/05/2024 12:56 PM CDT Plan of Treatment Health Maintenance Due Date Last Done Comments Albumin Creatinine Ratio, Urine 1977 Colon Cancer Screening-Colonoscopy 1977 Depression Screening 1977 Hepatitis C Screening 1977 Dilated Eye Exam 1977 Lipid Panel 1977 DTaP/Tdap/Td Vaccine (1 - Tdap) 1988 Hepatitis B Screening 05/22/1995 Regular Well Visit/Exam 18-64 05/22/1995 Pneumococcal vaccine <65 (1 of 2 - PCV) 1996 Breast Cancer Screening-Mammogram 08/24/2024 08/25/2023, 08/25/2023, 08/27/2022, Additional history exists eGFR 08/24/2024 08/25/2023, 07/09/2023, 07/09/2023, Additional history exists Cervical Cancer Screening 08/25/2024 08/26/2023 Influenza Vaccine (Season Ended) 2024 12/20/19 15 Foot Exam 11/03/2024 11/04/2023 Hemoglobin A1C 11/05/2024 05/05/2024, 1208/2023, 11/04/2023 Procedures Procedure Name Priority Date/Time Associated Diagnosis Comments POCT HEMOGLOBIN A1C Routine 05/05/2024 1 :08 PM CDT Type 2 diabetes mellitus with hyperglycemia, without long-term current use of insulin (HCC) COMPREHENSIVE METABOLIC PANEL Routine 08/25/2023 from Last 3 Months or Most Recently Relevant to Health Maintenance Results * POCT hemoglobin A1c (05/05/2024 1:08 PM CDT) Hemoglobin A1C, POC 7.2 4.0 - 5.6 % Blood 05/05/2024 1:08 PM CDT Annetta Kearney DO POINT OF CARE TEST ORDERABL ES Final Result * Comprehensive metabolic panel (08/25/2023) SCRIBED Sodium 140 - - - mmol/L [...] - EXTERNAL LAB SCRIBED eGFR in NonAfrican Panamanian >=60 - - - EXTERNAL LAB Blood 08/25/2023 us Historical Provider LAB BLOOD ORDERABLES Ashely diaz Result EXTERNAL LAB from Last 3 Months or Most Recently Relevant to Health Maintenance [facility] Care Teams Call Center Coordinator Relationship Specialty Start Date End Date Jourdan Hedrick PA [address] [place] [address] PCP - General Family Practice 06/08/20
--- OUTSIDE RECORDS SUMMARY | 2024-05-29 16:43 | XMS_ITS | Clinical Summary ---
Author Organization [facility] Address [address] [place] [address] Phone Care Team Providers Care Harvest Field Ticketer Name Role Phone Jourdan Hedrick Primary Care Provider [phone] Allergies Active Allergy Reactions Criticality Noted Date Comments Ciprofloxacin Rash Medium 10/17/2023 Iodinated Contrast Media Swelling 03/03/2016 Chest hives; Swollen throat; SOB; and has to be pre-treated with benadryl and steroid prior to procedures in past scan hx for CA. Erythromycin Other (see Comments) 12/10/2022 Chest pain Gadolinium Derivatives Other (see Comments) Contrast Media (Gadolinium-Based): (Other (Unspecified)) Iodine Anaphylaxis High 08/26/2023 Gets premeds Lactose Unknown,Other (see Comments) 07/16/2023 Metformin Other (see Comments),Diarrhea 10/17/2023 Metronidazole Other (see Comments) Low 02/25/2019 Penicillins Rash 04/15/2015 Medications ciprofloxacin (CIPRO) 250 MG Tablet Take 250 mg by mouth every 12 hours. Active pantoprazole (PROTONIX) 40 MG Tablet Delayed Response Take 1 Tablet by mouth daily. 30 Tablet 03/24/2022 Active Encounters Date Type Department Care Team Description 05/28/2024 10:07 PM CDT - 05/29/2024 3:26 AM CDT [facility] [address] [place] [address] Discharge Disposition: LWBS 05/28/2024 Travel 04/01/2024 7:24 PM COMM[employer]CIAL GRE[employer] RETROFIT ARCHITECT - 04/01/2024 9:33 PM COMM[employer] RET[employer]OFIT ARCHITECT Emergency [facility] Emergency [address] [place] [address] Preston Recinos, IMAN Influenza A Discharge Disposition: Discharged to home or Selfcare 04/01/2024 Travel from Last 3 Months Immunizations Immunization Administration Dates Next Due Influenza, Seasonal, Injectable, Undefined 12/19 Social History Tobacco Use Types Packs/Day Years Used Date Smoking Tobacco: Never Smokeless Tobacco: Never Tobacco Cessation:Counseling Given: Not Answered Alcohol Use Standard Drinks/Week Comments No 0 (1 standard drink = 0.6 oz pur e alcohol) Comments No Sex and Gender Information Value Date Recorded Sex Assigned at Female 05/29/2024 2:10 AM CDT Legal Sex Female 12:22 AM CDT Gender Identity Female 05/29/2024 2:10 AM CDT Sexual Orientation Not on file Last Filed Vital Signs Vital Sign Reading Time Taken Comments Blood Pressure 154/72 05/28/2024 10:11 PM CDT Pulse 85 05/28/2024 10:11 PM CDT Temperature 36.8 C (98.2 F) 05/28/2024 10:11 PM CDT Respiratory Rate 18 05/28/2024 10:11 PM CDT Oxygen Saturation 100% 05/28/2024 10:11 PM CDT Inhaled Oxygen Concentration - - Weight 72.6 kg (160 lb) 05/28/2024 10:11 PM CDT Height 162.6 cm (5' 4 ) 05/28/2024 10:11 PM CDT Body Mass Index 27.46 05/28/2024 10:11 PM CDT Plan of Treatment Health Maintenance Due Date Last Done Comments Hepatitis C Virus (HCV) Screening 1977 TdaP Immunization 1977 Hepatitis B Immunization (1 of 3 - 19+ 3-dose series) 1996 HPV/Cotest 05/22/2007 Colonoscopy 2022 Colorectal Cancer Screening 2022 SARS-COV-2 Immunization ( season) 2023 Mammogram 08/24/2024 08/25/2023, 08/25/2023, 08/27/2022 Influenza Immunization (Seas on Ended) 2024 12/19/2014 Cervical Cancer Screening (CCS) 08/25/2026 Pap Smear 08/25/2026 08/26/2023 Immunochemical Fecal Occult Blood 05/22/2027 11/02/2020 Respiratory Syncytial Virus (RSV) Immunization (Adult) (1 - 1-dose 75+ series) 2052 Discussion re Starting/Frequency of Mammograms Completed 08/25/2023 Meningococcal Immunization (ACWY) Aged Out No longer eligible b ased on patient's age to complete this topic Pneumococcal Immunization Combined Aged Out No longer eligible b ased on patient's age to complete this topic Rotavirus Immunization Aged Out No lo nger eligible based on patient's age to complete this topic Procedures Procedure Name Priority Date/Time Associated Diagnosis Comments CBC WITH AUTO DIFFERENTIAL STAT 04/01/2024 8:05 PM COMMERCIAL GREEN RETROFIT ARCHITECT BASIC METABOLIC PANEL W/ CALCIUM TOTAL STAT 04/01/2024 8:05 PM COMMERCIAL GREEN RETROFIT ARCHITECT COMPLETE BLOOD COUNT (CBC) WITH DIFF STAT 04/01/2024 8:05 PM COMMERCIAL GRE[employer] RETROFIT ARCHITECT XR CHEST 2 VIEWS STAT 04/01/2024 7:52 PM COMMERCIAL GREEN RETROFIT ARCHITECT RSV,SARS-COV-2,INFLUE NZA A&B BY PCR STAT 04/01/2024 7:06 PM COMMERCIAL GREEN RETROFIT ARCHITECT from Last 3 Months Results * (ABNORMAL) CBC with Auto Differential (04/01/2024 8:05 PM COMMERCIAL GREEN RETROFIT ARCHITECT) WBC 5.21 4.00 - 12.00 10(3)/mcL 04/01/2024 8:41 PM COMMERCIAL GREEN RETROFIT ARCHITECT [facility] RBC 4.61 3.80 - 5.30 10(6)/mcL 04/01/2024 8:41 PM COMMERCIAL GRE[employer] RETROFIT ARCHITECT [facility] HEMOGLOBIN (HGB) 14.2 12.0 - 15.8 g/dL 04/01/2024 8:41 PM [facility] HEMATOCRIT (HCT) 44.6 36.0 - 47.0 % 04/01/2024 8:41 PM [facility] MCV 96.7(H) 82.0 - 96.0 fL 04/01/2024 8:41 PM [facility] MCH 30.8 26.0 - 34.0 pg 04/01/2024 8:41 PM [facility] MCHC 31.8 31.0 - 36.0 g/dL 04/01/2024 8:41 PM [facility] PLATELET COUNT 155 140 - 440 10(3)/mcL 04/01/2024 8:41 PM [facility] RDW 12.5 11.8 - 15.5 % 04/01/2024 8:41 PM [facility] MPV 9.6(L) 9.7 - 12.4 fL 04/01/2024 8:41 PM [facility] NEUTROPHILS 83.1(H) 47.0 - 73.0 % 04/01/2024 8:41 PM [facility] LYMPHOCYTES 9.8(L) 18.0 - 42.0 % 04/01/2024 8:41 PM [facility] MONOCYTES 6.7 4.0 - 12.0 % 04/01/2024 8:41 PM [facility] EOSINOPHILS 0.2 0.0 - 5.0 % 04/01/2024 8:41 PM [facility] BASOPHILS 0.2 0.0 - 1.0 % 04/01/2024 8:41 PM [facility] ABSOLUTE NEUTROPHILS 4.33 1.60 - 7.70 10(3)/mcL 04/01/2024 8:41 PM [facility] ABSOLUTE LYMPHOCYTES 0.51(L) 1.30 - 3.20 10(3)/mcL 04/01/2024 8:41 PM [facility] ABSOLUTE MONOCYTES 0.35 0.20 - 1.00 10(3)/mcL 04/01/2024 8:41 PM COMM[employer] RETR[employer]IT ARCHITECT [facility] ABSOLUTE EOSINOPHIL 0.01 0.00 - 0.40 10(3)/mcL 04/01/2024 8:41 PM [facility] ABSOLUTE BASOPHILS 0.01 0.00 - 0.10 10(3)/[facility] 04/01/2024 8:41 PM [facility] NRBC PER 100 WBC 0 04/01/19 8:41 PM COMMERCIAL [employer] RETR[employer]IT ARCHITECT [facility] Blood Venipuncture / Unknown 04/01/2024 8:05 PM COMM[employer] RETR[employer]IT ARCHITECT 04/01/2024 8:37 PM COMM[employer] RET[employer]IT ARCHITECT us Preston Recinos PAC HEMATOLOGY ORDERABLE S Final Result [facility] [address] [place] [address] * (ABNORMAL) BMP w/ Ca (04/01/2024 8:05 PM COMMER[employer] RETR[employer]IT ARCHITECT) SODIUM 140 136 - 145 mmol/L 04/01/2024 9:01 PM [facility] POTASSIUM 3.9 3.5 - 5.1 mmol/L 04/01/2024 9:01 PM [facility] CHLORIDE 104 98 - 107 mmol/L 04/01/2024 9:01 PM [facility] CO2, VENOUS 28 22 - 30 mmol/L 04/01/2024 9:01 PM [facility] ANION GAP 11.9 <18.0 mmol/L 04/01/2024 9:01 PM [facility] GLUCOSE 167(H) 70 - 99 mg/dL 04/01/2024 9:01 PM [facility] BUN 10 5 - 18 mg/dL 04/01/2024 9:01 PM [facility] CREATININE, BLOOD 0.85 0.60 - 1.00 mg/dL 04/01/2024 9:01 PM [facility] BUN/CREATININE RATIO 12 12 - 20 ratio 04/01/2024 9:01 PM COMM[employer] RETR[employer]IT ARCHITECT [facility] CALCIUM 8.7 8.7 - 10.5 mg/dL 04/01/2024 9:01 PM COMMER[employer] RETROFIT ARCHITECT [facility] GFR, ESTIMATED >60 >=60 04/01/2024 9:01 PM COMMER[employer] RETROFIT ARCHITECT [facility] Comment: Creatinine Clearance is the preferred criteria for selecting drug dose adjustments in renally impaired patients. The GFR is provided as additional pertinent clinical information. GFR is reported in mL/min/1.73 sq m. Calculation based on the Chronic Kidney Disease Epidemiology Collaboration (CKD- EPI) equation refit without adjustment for race. GFR, EST. >60 >=60 025 9:01 PM COMMERCIAL GREEN RETROFIT ARCHITECT [facility] GFR, EST. NONAFRICAN >60 >=60 04/01/2024 9:01 PM COMMERCIAL GREEN RETROFIT ARCHITECT [facility] Blood Venipuncture / Unknown 04/01/2024 8:05 PM COMMERCIAL GREEN RETROFIT ARCHITECT 04/01/2024 8:37 PM COMMERCIAL GREEN RETROFIT ARCHITECT Preston Recinos PAC CHEMISTRY ORDERABLES Final Result [facility] [address] [place] [address] * XR CHEST 2 VIEWS (04/01/2024 7:52 PM COMMERCIAL GRE[employer] RETROFIT ARCHITECT) Anatomical Region Laterality Modality Chest N/A Digital Radiogra phy 04/01/2024 9:17 PM COMMERCIAL GRE[employer] RETROFIT ARCHITECT Impressions 04/01/2024 9:20 PM COMMERCIAL GREEN RETROFIT ARCHITECT IMPRESSION: No acute cardiopulmonary abnormality. Narrative 04/01/2024 9:20 PM COMMERCIAL GREEN RETROFIT ARCHITECT EXAM DESCRIPTION: XR CHEST 2 VIEWS REASON FOR STUDY: Productive cough, congestion, nausea, diarrhea and fever x 3 days. Hx asthma, Cervical Cancer TECHNIQUE: Frontal and lateral radiographic views of the chest acquired. COMPARISON: 04/06/2021 FINDINGS: LUNGS/PLEURA: No focal consolidation or pneumothorax. No pleural effusion. HEART/MEDIASTINUM: Heart size is normal. Normal mediastinal and hilar contours. HARDWARE/LINES/TUBES: None. BONES: No acute findings. OTHER: No other significant finding. THIS IS AN ELECTRONICALLY VERIFIED FINAL REPORT 04/01/2024 9:17 PM - Electronically signed by Andrea CANO: RACHAEL Report ID: [id number] Reading Location: [id number] Procedure Note Andrea Galeana MD - 04/01/2024 EXAM DESCRIPTION: XR CHEST 2 VIEWS REASON FOR STUDY: Productive cough, congestion, nausea, diarrhea and fever x 3 days. Hx asthma, Cervical Cancer TECHNIQUE: Frontal and lateral radiographic views of the chest acquired. COMPARISON: 04/06/2021 FINDINGS: LUNGS/PLEURA: No focal consolidation or pneumothorax. No pleural effusion. HEART/MEDIASTINUM: Heart size is normal. Normal mediastinal and hilar contours. HARDWARE/LINES/TUBES: None. BONES: No acute findings. OTHER: No other significant finding. THIS IS AN ELECTRONICALLY VERIFIED FINAL REPORT 04/01/2024 9:17 PM - Electronically signed by Andrea CANO: RACHAEL Report ID: [id number] Reading Location: [id number] IMPRESSION: No acute cardiopulmonary abnormality. Preston Recinos [facility] IMG DIAGNOSTIC ORDER ANDREAS Final Result * (ABNORMAL) RSV,SARS-COV-2,INFLUENZA A&B BY PCR (04/01/2024 7:06 PM COMMERCIAL GREEN RETROFIT ARCHITECT) FLU A Positive(A) Negative, Error 04/01/2024 8:05 PM COMMERCIAL GREEN RETROFIT ARCHITECT [facility] FLU B Negative Negative 04/01/2024 8:05 PM COMMERCIAL GREEN RETROFIT ARCHITECT [facility] RESP SYNC VIRUS Negative Negative 8:05 PM COMMERCIAL GREEN RETROFIT ARCHITECT [facility] SARSCOV2 NOT DETECTED (Reference Range for this test is Not Detected) 04/01/2024 8:05 PM COMMERCIAL GREEN RETROFIT ARCHITECT [facility] Comment:This test was perfor med by a Reverse Supply And Distribution Manager PCR Method. Swab NASOPHARYNGEAL WASHINGS / Unknown Non-Phlebotomy Collection / Unknown 04/01/2024 7:06 PM COMMERCIAL GRE[employer] RETROFIT ARCHITECT 04/01/2024 7:21 PM COMMERCIAL GREEN RETROFIT ARCHITECT us Pantera Navarrete MD MICROBIOLOGY - GENERAL OR DERABLES Final Result [facility] [address] [place] [address] from Last 3 Months Insurance MEDICAID [employer] Care Teams Harvest Field Ticketer Relationship Specialty Start Date End Date Jourdan Hedrick PAC [address] [place] [address] PCP - General Physician Field Scout 04/24/20
--- OUTSIDE RECORDS SUMMARY | 2024-05-29 16:43 | XMS_ITS | Encounter Summary ---
Author Organization [facility] Address [address] [place] [address] Phone Care Team Providers Care Acid Recovery Operator Name Role Phone Jourdan Hedrick Primary Care Provider [phone] Reason for Visit * Reason Comments Dental Pain Encounter Details Date Type Department Care Team (Late st Contact Info) Description 05/28/2024 10:07 PM CDT - 05/29/2024 3:26 AM CDT Emergency [facility] Emergency [address] [place] [address] Discharge Disposition: LWBS Social History Tobacco Use Types Packs/Day Years [...] on file documented as of this encounter Last Filed Vital Signs Vital Sign Reading [...] Mass Index 27.46 05/28/2024 10:11 PM CDT documented in this encounter Medications at Time of Discharge ciprofloxacin (CIPRO) 250 MG Tablet Take 250 mg by mouth every 12 hours. pantoprazole (PROTONIX) 40 MG Tablet Delayed Response Take 1 Tablet by mouth daily. 30 Tablet 03/24/2022 documented as of this encounter ED Notes * Tori Hernandez RN - 05/29/2024 3:25 AM CDT Called for patient to bring her to an ED room x2. Patient did not present for either call. Per food or baggage handling rampman, patient seen leaving the ED. Patient left without being seen. * Yeny Holbrook RN - 05/28/2024 10:13 PM CDT Pt presents to ED for complaint of right lower tooth pain that radiates into her ear/jaw areas. Pt states she had a tooth pulled on Friday. Pt reports that her PCP prescribed her bactrim which she started last Friday. VSS. No distress noted. Pt updated on plan of care. documented in this encounter Plan of Treatment Not on file documented as of this encounter Visit Diagnoses Not on filedocumented in this encounter Care Teams Acid Recovery Operator Relationship Specialty Start Date End Date Jourdan Hedrick PAC [address] [place] [address] PCP - General Physician Sash Installer 04/24/20 documented as of this encounter
--- OUTSIDE RECORDS SUMMARY | 2024-05-29 16:43 | XMS_ITS | Data Portability ---
Author Organization 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 Plan of Treatment Reminders Order Date Submit Date Provider Last Modified By Organization Details Last Modified Time Details Appointments None recorded. Lab influenza virus A + B + SARS-CoV- 2 (COVID19) Ag panel, rapid IA, upper respirato ry specimen 2024 025 SHAISTA In-Office Order, Internal Use Only DO Not Attach Compendium DO Not Attach Compendium, Do Not Delete/merge, [id number] 16:18:17 urinalysi s, dipstick 2023 024 jnanney In-Office Order, Internal Use Only DO Not Attach Compendium DO Not Attach Compendium, Do Not Delete/merge, [id number] 15:50:47 HbA1c (hemoglob in A1c), blood 2023 024 jnanney In-Office Order, Internal Use Only DO Not Attach Compendium DO Not Attach Compendium, Do Not Delete/merge, [id number] 14:34:42 urinalysi s, dipstick 2023 024 jnanney In-Office Order, Internal Use Only DO Not Attach Compendium DO Not Attach Compendium, Do Not Delete/merge, [id number] 14:34:42 Referral end[facility]ino logy [facility] 2023 [facility]24 [facility], [address] [facility] , [place] [facility], [place], [address], 4 15:32:23 endocrino logy referral 2023 024 [place], [address] , [place], [address], 4 15:39:06 Procedures None recorded. Surgeries None recorded. Imaging None recorded. Medication Orders Tamiflu 75 mg capsule 2024 025 [id number], [address], [place], [id number], 5 16:17:33 sulfameth oxazole 800 mg-trimet hoprim 160 mg tablet 2023 024 [id number] [address], [place], [id number], 5 16:01:28 fluconazo le 200 mg tablet 2023 024 [facility] #[id number], [address], [place], [id number], 4 14:24:23 Patient TargetsNo targets recorded. Patient Instructions Encounter Date Encounter Id Patient Instructions Last Modified By Organization Details Last Modified Time 08/20/2023 [id number] learning about type 2 diabetes jnanney Not available 08/20/2023 14:34:42 type 2 diabetes: care instructions jnanney Not available 08/20/2023 14:34:42 vaginal yeast infection: care instructions jnanney Not available 08/20/2023 14:34:42 09/24/2023 [id number] A healthy lifestyle: care instructions jnanney Not available 09/24/2023 16:15:24 learning about type 2 diabetes jnanney Not available 09/24/2023 16:15:24 type 2 diabetes: care instructions jnanney Not available 09/24/2023 16:15:24 12/29/2023 [id number] A healthy lifestyle: care instructions [email or web address] Not available 12/29/2023 11:54:26 Your women's health annual exam today was unremarkable. Continue to practice breast self awareness like we discussed. Come back to the office with any breast changes, nipple discharge, change to your menstrual cycle, or with complaints of unusual odorous discharge. Otherwise, come back in 1 year for your next well woman annual exam. Do NOT douche as it disturbs the natural balance of bacteria in the vagina and can cause infection. Avoid scented soaps or lotions. Use a basic unscented soap for only the outer skin around your vagina. Wear cotton underwear, avoid thongs, avoid spandex, leggings and wear panty liners daily. You can try probiotics. Use a condom with EVERY sexual encounter to minimize your risk for sexually transmitted infection and unplanned . 1. Start taking a multivitamin, calcium and vitamin D3 supplements daily to keep your bones healthy. 2. Exercise and keep a healthy diet to minimize risk for stroke, heart attack and osteoporosis. 3. Use a once a day vaginal moisturizer (like Replens) if you have bothersome dryness. If dryness continues to be a problem, make an appointment to see us to discuss other options. Keep taking your multivitamins. Your bones get weaker after menopause, and you need to take your calcium and vitamin D3, which are multivitamins, to make sure your bones stay strong. Regular exercise, like walking, is very good to keep bones healthy. Try exercising for 30 minutes 5 times a week. Try having 2-3 servings of low fat dairy every day. Lubrication can help make penetrative intercourse more comfortable. There are 3 types of lube: Water-based (examples are KY jelly, Astroglide): inexpensive, can buy over the counter, often gets sticky and needs to be reapplied. Oil-based (examples olive oil, coconut oil): inexpensive, can stain sheets, do not use with condoms. Silicone-based (examples Uber Lube, Pjur): more expensive, a little goes a long way, does not have scents or stain sheets. [email or web address] Not available 12/29/2023 14:17:42 01/02/2024 [id number] flank pain: care instructions jnanney Not available 01/02/2024 15:50:47 A healthy lifestyle: care instructions jnanney Not available 01/02/2024 15:21:35 type 2 diabetes: care instructions jnanney Not available 01/02/2024 15:20:56 04/05/2024 [id number] A healthy lifestyle: care instructions jnanney Not available 04/05/2024 16:17:22 upper respirator y infection (cold): care instructions jnanney Not available 04/05/2024 16:17:22 Reason for Referral Endocrinology Referral for T ype 2 diabetes mellitus Referring Physician: Darrick Hedrick, [facility], Encounter Date: 08/20/2023 Endocrinology Referral for T ype 2 diabetes mellitus without complication Referring Physician: Darrick Hedrick [facility], Encounter Date: 01/02/2024 Results Created Date Observation Date Name Description Value Unit Range Abnormal Flag Note LastModifiedBy Organization Detail LastModifiedTime 08/20/19 24 08/20/2023 HbA1c (hemo globi n A1c), blood HbA1c 7.0 Not Available In-Office Order Internal Use Only DO Not Attach Compendium DO Not Attach Compendium, Do Not Delete/merge, [id number] 08/20/2023 14:09:33 08/20/19 24 08/20/2023 urina lysis , dipst ick Leukocytes Negati ve Not Available In-Office Order Internal Use Only DO Not Attach Compendium DO Not Attach Compendium, Do Not Delete/merge, [id number] 08/20/2023 14:09:50 08/20/19 24 08/20/2023 urina lysis , dipst ick Nitrite negati ve Not Available In-Office Order Internal Use Only DO Not Attach Compendium DO Not Attach Compendium, Do Not Delete/merge, 08/20/2023 14:09:50 08/20/1908/20/2023 urina lysis , dipst ick Urobilinogen .2 Not Available In-Of fice Order Internal Use Only DO Not Attach Compendium DO Not Attach Compendium, Do Not Delete/merge, [id number] 08/20/2023 14:09:50 08/20/19 24 08/20/2023 urina lysis , dipst ick Protein Negati ve Not Available In-Office Order Internal Use Only DO Not Attach Compendium DO Not Attach Compendium, Do Not Delete/merge, 08/20/2023 14:09:50 08/20/19 24 08/20/2023 urina lysis , dipst ick pH 6.0 Not Available In-Office Order Internal Use Only DO Not Attach Compendium DO Not Attach Compendium, Do Not Delete/merge, 08/20/2023 14:09:50 08/20/19 24 08/20/2023 urina lysis , dipst ick Blood Negati ve Not Available In-Office Order Internal Use Only DO Not Attach Compendium DO Not Attach Compendium, Do Not Delete/merge, 08/20/2023 14:09:50 08/20/19 24 08/20/2023 urina lysis , dipst ick Specific [place] 1.010 Not Available In-Off ice Order Internal Use Only DO Not Attach Compendium DO Not Attach Compendium, Do Not Delete/merge, 08/20/2023 14:09:50 08/20/19 24 08/20/2023 urina lysis , dipst ick Ketone Trace Not Available In-Office Order Internal Use Only DO Not Attach Compendium DO Not Attach Compendium, Do Not Delete/merge, 08/20/2023 14:09:50 08/20/19 24 08/20/2023 urina lysis , dipst ick Bilirubin Negati ve Not Available In-Office Order Internal Use Only DO Not Attach Compendium DO Not Attach Compendium, Do Not Delete/merge, 08/20/2023 14:09:50 08/20/19 24 08/20/2023 urina lysis , dipst ick Glucose 1000 Not Available In-Office Order Internal Use Only DO Not Attach Compendium DO Not Attach Compendium, Do Not Delete/merge, 08/20/2023 14:09:50 08/20/19 24 08/20/2023 urina lysis , dipst ick Appearance Clear Not Available In-Offi ce Order Internal Use Only DO Not Attach Compendium DO Not Attach Compendium, Do Not Delete/merge, [id number] 08/20/2023 14:09:50 08/20/19 24 08/20/2023 urina lysis , dipst ick Color Yellow Not Available In-Office Order Internal Use Only DO Not Attach Compendium DO Not Attach Compendium, Do Not Delete/merge, [id number] 08/20/2023 14:09:50 01/02/20 24 01/02/2024 urina lysis , dipst ick Leukocytes Negati ve Not Available In-Office Order Internal Use Only DO Not Attach Compendium DO Not Attach Compendium, Do Not Delete/merge, 01/02/2024 15:03:07 01/02/20 24 01/02/2024 urina lysis , dipst ick Nitrite negati ve Not Available In-Office Order Internal Use Only DO Not Attach Compendium DO Not Attach Compendium, Do Not Delete/merge, 01/02/2024 15:03:07 01/02/20 24 01/02/2024 urina lysis , dipst ick Urobilinogen .2 Not Available In-Of fice Order Internal Use Only DO Not Attach Compendium DO Not Attach Compendium, Do Not Delete/merge, 01/02/2024 15:03:07 01/02/20 24 01/02/2024 urina lysis , dipst ick Protein Negati ve Not Available In-Office Order Internal Use Only DO Not Attach Compendium DO Not Attach Compendium, Do Not Delete/merge, 01/02/2024 15:03:07 01/02/20 24 01/02/2024 urina lysis , dipst ick pH 6.0 Not Available In-Office Order Internal Use Only DO Not Attach Compendium DO Not Attach Compendium, Do Not Delete/merge, 01/02/2024 15:03:07 01/02/20 24 01/02/2024 urina lysis , dipst ick Blood Small Not Available In-Office Order Internal Use Only DO Not Attach Compendium DO Not Attach Compendium, Do Not Delete/merge, 01/02/2024 15:03:07 01/02/20 24 01/02/2024 urina lysis , dipst ick Specific [place] 1.015 Not Available In-Off ice Order Internal Use Only DO Not Attach Compendium DO Not Attach Compendium, Do Not Delete/merge, [id number] 01/02/2024 15:03:07 01/02/20 24 01/02/2024 urina lysis , dipst ick Ketone Negati ve Not Available In-Office Order Internal Use Only DO Not Attach Compendium DO Not Attach Compendium, Do Not Delete/merge, [id number] 01/02/2024 15:03:07 01/02/20 24 01/02/2024 urina lysis , dipst ick Bilirubin Negati ve Not Available In-Office Order Internal Use Only DO Not Attach Compendium DO Not Attach Compendium, Do Not Delete/merge, [id number] 01/02/2024 15:03:07 01/02/20 24 01/02/2024 urina lysis , dipst ick Glucose 1000 Not Available In-Office Order Internal Use Only DO Not Attach Compendium DO Not Attach Compendium, Do Not Delete/merge, [id number] 01/02/2024 15:03:07 01/02/20 24 01/02/2024 urina lysis , dipst ick Appearance Clear Not Available In-Offi ce Order Internal Use Only DO Not Attach Compendium DO Not Attach Compendium, Do Not Delete/merge, [id number] 01/02/2024 15:03:07 01/02/20 24 01/02/2024 urina lysis , dipst ick Color Yellow Not Available In-Office Order Internal Use Only DO Not Attach Compendium DO Not Attach Compendium, Do Not Delete/merge, [id number] 01/02/2024 15:03:07 02/03/20 24 02/03/2024 Hemog lobin A1c/H emogl obin. total in Blood hemoglobin A1C, POC 7 % low: 4%high : 5.6% Hemog lobin A1C, POC 7.0 4.0 - 5.6 % Not Available Not Available 04/05/2024 15:26:42 04/01/19 25 04/01/2024 CBC W Auto Diffe markti al panel - Blood leukocytes [#/volume] in blood by automated count 5.21 text: 4.00 - 12.00 10(3)/ mcL WBC 5.21 4.00 - 12.00 10(3) /mcL 04/01 8:41 PM [employer]SET PR[employer] SET [facility] Not Available Not Available 04/05/2024 15:26:38 04/01/19 25 04/01/2024 CBC W Auto Diffe renti al panel - Blood erythrocytes [#/volume] in blood by automated count 4.61 text: 3.80 - 5.30 10(6)/ mcL RBC 4.61 3.80 - 5.30 10(6) /mcL 04/01 8:41 PM LETTERSET PR[employer] SET UP OPER[facility] Not Available Not Available 04/05/2024 15:26:38 04/01/19 25 04/01/2024 CBC W Auto Diffe renti al panel - Blood hemoglobin [mass/volume ] in blood 14.2 g/dL low: 12g/dL high: 15.8g/ dL HEMOG LOBIN (HGB) 14.2 12.0 - 15.8 g/dL 04/01 8:41 PM LETTERSET PR[employer] SET UP OPER[facility] Not Available Not Available 04/05/2024 15:26:38 04/01/19 25 04/01/2024 CBC W Auto Diffe renti al panel - Blood hematocrit [volume fraction] of blood by automated count 44.6 % low: 36%hig h: 47% HEMAT OCRIT (HCT) 44.6 36.0 - 47.0 % 04/01 8:41 PM [facility] Not Available Not Available 04/05/2024 15:26:38 04/01/19 25 04/01/2024 CBC W Auto Diffe renti al panel - Blood MCV [entitic volume] by automated count 96.7 fL low: 82fLhi gh: 96fL high MCV 96.7 (H) 82.0 - 96.0 fL 04/01 8:41 PM [facility] Not Available Not Available 04/05/2024 15:26:38 04/01/19 25 04/01/2024 CBC W Auto Diffe renti al panel - Blood MCH [entitic mass] by automated count 30.8 pg low: 26pghi gh: 34pg MCH 30.8 26.0 - 34.0 pg 04/01 8:41 PM LETTERSET PRESS SET UP [facility] Not Available Not Available 04/05/2024 15:26:38 04/01/19 25 04/01/2024 CBC W Auto Diffe renti al panel - Blood MCHC [mass/volume ] by automated count 31.8 g/dL low: 31g/dL high: 36g/dL MCHC 31.8 31.0 - 36.0 g/dL 04/01 8:41 PM [facility] Not Available Not Available 04/05/2024 15:26:38 04/01/19 25 04/01/2024 CBC W Auto Diffe renti al panel - Blood platelets [#/volume] in blood 155 text: 140 - 440 10(3)/ mcL PLATE LET COUNT 155 140 - 440 10(3) /mcL 04/01 8:41 PM [facility] Not Available Not Available 04/05/2024 15:26:38 04/01/19 25 04/01/2024 CBC W Auto Diffe renti al panel - Blood erythrocyte distribution width [ratio] by automated count 12.5 % low: 11.8%h igh: 15.5% RDW 12.5 11.8 - 15.5 % 04/01 8:41 PM [facility] Not Available Not Available 04/05/2024 15:26:38 04/01/19 25 04/01/2024 CBC W Auto Diffe renti al panel - Blood platelet mean volume [entitic volume] in blood by automated count 9.6 fL low: 9.7fLh igh: 12.4fL low MPV 9.6 (L) 9.7 - 12.4 fL 04/01 8:41 PM [facility] Not Available Not Available 04/05/2024 15:26:38 04/01/19 25 04/01/2024 CBC W Auto Diffe renti al panel - Blood neutrophils/ 100 leukocytes in blood by automated count 83.1 % low: 47%hig h: 73% high NEUTR OPHIL S 83.1 (H) 47.0 - 73.0 % 04/01 8:41 PM LETTERSET PRESS SET UP OPER[facility] Not Available Not Available 04/05/2024 15:26:38 04/01/19 25 04/01/2024 CBC W Auto Diffe renti al panel - Blood lymphocytes/ 100 leukocytes in blood by automated count 9.8 % low: 18%hig h: 42% low LYMPH OCYTE S 9.8 (L) 18.0 - 42.0 % 04/01 8:41 PM [employer]SET PR[employer] SET UP OPERATOR [facility] Not Available Not Available 04/05/2024 15:26:38 04/01/19 25 04/01/2024 CBC W Auto Diffe renti al panel - Blood monocytes/10 0 leukocytes in blood by automated count 6.7 % low: 4%high : 12% MONOC YTES 6.7 4.0 - 12.0 % 04/01 8:41 PM LETTERSET PR[employer] SET UP OPERATOR [facility] Not Available Not Available 04/05/2024 15:26:38 04/01/19 25 04/01/2024 CBC W Auto Diffe renti al panel - Blood eosinophils/ 100 leukocytes in blood by automated count 0.2 % low: 0%high : 5% EOSIN OPHIL S 0.2 0.0 - 5.0 % 04/01 8:41 PM [employer]SET PR[employer] SET UP OPERATOR [facility] Not Available Not Available 04/05/2024 15:26:38 04/01/19 25 04/01/2024 CBC W Auto Diffe renti al panel - Blood basophils/10 0 leukocytes in blood by automated count 0.2 % low: 0%high : 1% BASOP HILS 0.2 0.0 - 1.0 % 04/01 8:41 PM [employer] PR[employer] [facility] Not Available Not Available 04/05/2024 15:26:38 04/01/19 25 04/01/2024 CBC W Auto Diffe renti al panel - Blood neutrophils [#/volume] in blood by automated count 4.33 text: 1.60 - 7.70 10(3)/ mcL ABSOL [place] NEUTR OPHIL S 4.33 1.60 - 7.70 10(3) /mcL 04/01 8:41 PM LETTERSET PRESS SET UP OPER[facility] Not Available Not Available 04/05/2024 15:26:38 04/01/19 25 04/01/2024 CBC W Auto Diffe renti al panel - Blood lymphocytes [#/volume] in blood by automated count 0.51 text: 1.30 - 3.20 10(3)/ mcL low ABSOL [place] LYMPH OCYTE S 0.51 (L) 1.30 - 3.20 10(3) /mcL 04/01 8:41 PM LETTERSET PRESS SET UP OPERATOR [facility] R LAB Not Available Not Available 04/05/2024 15:26:38 04/01/19 25 04/01/2024 CBC W Auto Diffe renti al panel - Blood monocytes [#/volume] in blood by automated count 0.35 text: 0.20 - 1.00 10(3)/ mcL ABSOL [place] MONOC YTES 0.35 0.20 - 1.00 10(3) /mcL 04/01 8:41 PM LETTERSET PRESS SET UP OPER[facility] Not Available Not Available 04/05/2024 15:26:38 04/01/19 25 04/01/2024 CBC W Auto Diffe renti al panel - Blood eosinophils [#/volume] in blood by automated count 0.01 text: 0.00 - 0.40 10(3)/ mcL ABSOL [place] EOSIN OPHIL 0.01 0.00 - 0.40 10(3) /mcL 04/01 8:41 PM LETTERSET PR[facility] Not Available Not Available 04/05/2024 15:26:38 04/01/19 25 04/01/2024 CBC W Auto Diffe renti al panel - Blood basophils [#/volume] in blood by automated count 0.01 text: 0.00 - 0.10 10(3)/ mcL ABSOL [place] BASOP HILS 0.01 0.00 - 0.10 10(3) /mcL 04/01 8:41 PM [facility] R LAB Not Available Not Available 04/05/2024 15:26:38 04/01/19 25 04/01/2024 CBC W Auto Diffe renti al panel - Blood nucleated erythrocytes /100 leukocytes [ratio] in blood 0 NRBC PER 100 WBC 0 04/01 8:41 PM [facility] Not Available Not Available 04/05/2024 15:26:38 04/01/19 25 04/01/2024 CBC W Auto Diffe renti al panel - Blood interpretati on and review of laboratory results Abnorm al Not Available Not Available 15:26:38 04/01/19 25 04/01/2024 Basic metab olic 1999 panel - Serum or Plasm a sodium [moles/volum e] in serum or plasma 140 mmol/ L low: 136mmo l/Lhig h: 145mmo l/L SODIU M 140 136 - 145 mmol/ L 04/01 9:01 PM [facility] R LAB Not Available Not Available 04/05/2024 15:26:38 04/01/19 25 04/01/2024 Basic metab olic 1999 panel - Serum or Plasm a potassium [moles/volum e] in serum or plasma 3.9 mmol/ L low: 3.5mmo l/Lhig h: 5.1mmo l/L POTAS SIUM 3.9 3.5 - 5.1 mmol/ L 04/01 9:01 PM [facility] Not Available Not Available 04/05/2024 15:26:38 04/01/19 25 04/01/2024 Basic metab olic 1999 panel - Serum or Plasm a chloride [moles/volum e] in serum or plasma 104 mmol/ L low: 98mmol /Lhigh : 107mmo l/L CHLOR CARLEE 104 98 - 107 mmol/ L 04/01 9:01 PM LETTERSET PRESS SET UP OPERATOR [facility] Not Available Not Available 04/05/2024 15:26:38 04/01/19 25 04/01/2024 Basic metab olic 1999 panel - Serum or Plasm a carbon dioxide, total [moles/volum e] in serum or plasma 28 mmol/ L low: 22mmol /Lhigh : 30mmol /L CO2, VENOU S 28 22 - 30 mmol/ L 04/01 9:01 PM [facility] Not Available Not Available 04/05/2024 15:26:38 04/01/19 25 04/01/2024 Basic metab olic 2000 panel - Serum or Plasm a anion gap in serum or plasma 11.9 mmol/ L high: 18mmol /L ANION GAP 11.9 <18.0 mmol/ L 04/01 9:01 PM [facility] Not Available Not Available 04/05/2024 15:26:38 04/01/19 25 04/01/2024 Basic metab olic 2000 panel - Serum or Plasm a glucose [mass/volume ] in serum or plasma 167 mg/dL low: 70mg/d Lhigh: 99mg/d L high GLUCO SE 167 (H) 70 - 99 mg/dL 04/01 9:01 PM [facility] Not Available Not Available 04/05/2024 15:26:38 04/01/19 25 04/01/2024 Basic metab olic 1999 panel - Serum or Plasm a urea nitrogen [mass/volume ] in serum or plasma 10 mg/dL low: 5mg/dL high: 18mg/d L BUN 10 5 - 18 mg/dL 04/01 9:01 PM [facility] Not Available Not Available 04/05/2024 15:26:38 04/01/19 25 04/01/2024 Basic metab olic 2000 panel - Serum or Plasm a creatinine [mass/volume ] in serum or plasma 0.85 mg/dL low: 0.6mg/ dLhigh : 1mg/dL CREAT ININE , BLOOD 0.85 0.60 - 1.00 mg/dL 04/01 9:01 PM [facility] [employer] R LAB Not Available Not Available 04/05/2024 15:26:38 04/01/19 25 04/01/2024 Basic metab olic 2000 panel - Serum or Plasm a urea nitrogen/cre atinine [mass ratio] in serum or plasma 12 text: 12 - 20 ratio BUN/C REATI NINE RATIO 12 12 - 20 ratio 04/01 9:01 PM [facility] [employer] R LAB Not Available Not Available 04/05/2024 15:26:38 04/01/19 25 04/01/2024 Basic metab olic 2000 panel - Serum or Plasm a calcium [mass/volume ] in serum or plasma 8.7 mg/dL low: 8.7mg/ dLhigh : 10.5mg /dL CALCI UM 8.7 8.7 - 10.5 mg/dL 04/01 9:01 PM [facility] [employer] R LAB Not Available Not Available 04/05/2024 15:26:38 04/01/19 25 04/01/2024 Basic metab olic 2000 panel - Serum or Plasm a glomerular filtration rate/1.73 sq M.predicted among non-blacks [volume rate/area] in serum, plasma or blood by creatinine-b ased formula (MDRD) low: 60 GFR, ESTIM ATED >60 >=60 04/01 9:01 PM [facility] [employer] R LAB Not Available Not Available 04/05/2024 15:26:38 04/01/19 25 04/01/2024 Basic metab olic 2000 panel - Serum or Plasm a glomerular filtration rate/1.73 sq M.predicted among blacks [volume rate/area] in serum, plasma or blood by creatinine-b ased formula (MDRD) low: 60 GFR, EST. AFRIC AN >60 >=60 04/01 9:01 PM [facility] [facility] Not Available Not Available 04/05/2024 15:26:38 04/01/19 25 04/01/2024 Basic metab olic 2000 panel - Serum or Plasm a glomerular filtration rate/1.73 sq M.predicted among non-blacks [volume rate/area] in serum, plasma or blood by creatinine-b ased formula (MDRD) low: 60 GFR, EST. NONAF RICAN >60 >=60 04/01 9:01 PM [employer] PR[employer] SET UP OPERATOR [facility] [employer] R LAB Not Available Not Available 04/05/2024 15:26:38 04/01/19 25 04/01/2024 Basic metab olic 2000 panel - Serum or Plasm a interpretati on and review of laboratory results Abnorm al Not Available Not Available 15:26:38 04/01/19 25 04/01/2024 Influ prashanth virus A and B and SARS- CoV-2 (COVI D-19) and Respi rator y syncy tial virus RNA panel - Respi rator y syste m speci men by CAMILA with probe detec tion influenza virus A RNA [presence] in upper respiratory specimen by CAMILA with probe detection Positi ve text: negati ve, error abnormal FLU A Posit natalee (A) Negat natalee, Error 04/01 8:05 PM LETTERSET PRESS SET UP OPERATOR [facility] R LAB Not Available Not Available 04/05/2024 15:26:38 04/01/19 25 04/01/2024 Influ prashanth virus A and B and SARS- CoV-2 (COVI D-19) and Respi rator y syncy tial virus RNA panel - Respi rator y syste m speci men by CAMILA with probe detec tion influenza virus B RNA [presence] in upper respiratory specimen by CAMILA with probe detection Negati ve text: negati ve FLU B Negat natalee Negat natalee 04/01 8:05 PM [employer] PR[employer] SET UP OPERATOR [facility] R LAB Not Available Not Available 04/05/2024 15:26:38 04/01/19 25 04/01/2024 Influ prashanth virus A and B and SARS- CoV-2 (COVI D-19) and Respi rator y syncy tial virus RNA panel - Respi rator y syste m speci men by CAMILA with probe detec tion respiratory syncytial virus RNA [presence] in respiratory system specimen by CAMILA with probe detection Negati ve text: negati ve RESP SYNC VIRUS Negat natalee Negat natalee 04/01 8:05 PM [employer] PR[employer] SET UP OPERATOR [facility] R LAB Not Available Not Available 04/05/2024 15:26:38 04/01/19 25 04/01/2024 Influ prashanth virus A and B and SARS- CoV-2 (COVI D-19) and Respi rator y syncy tial virus RNA panel - Respi rator y syste m speci men by CAMILA with probe detec tion sars-cov-2 (covid-19) N gene [presence] in specimen by CAMILA with probe detection NOT DETECT ED text: (refer ence range for this test IS not detect ed) SARSC OV2 NOT DETEC KYAW (Refe rence Range for this test is Not Detec kyaw) 04/01 8:05 PM LETTERSET PRESS SET UP OPERATOR [facility] Not Available Not Available 04/05/2024 15:26:38 04/01/19 25 04/01/2024 Influ prashanth virus A and B and SARS- CoV-2 (COVI D-19) and Respi rator y syncy tial virus RNA panel - Respi rator y syste m speci men by CAMILA with probe detec tion interpretati on and review of laboratory results Abnorm al Not Available Not Available 15:26:38 04/05/19 25 04/05/2024 influ prashanth virus A + B + SARS- CoV-2 (COVI D19) Ag panel , rapid IA, upper respi rator y speci men Flu A positi ve Not Available In-Office Order Internal Use Only DO Not Attach Compendium DO Not Attach Compendium, Do Not Delete/merge, [id number] 04/05/2024 16:04:54 04/05/19 25 04/05/2024 influ prashanth virus A + B + SARS- CoV-2 (COVI D19) Ag panel , rapid IA, upper respi rator y speci men Flu B negati ve Not Available In-Office Order Internal Use Only DO Not Attach Compendium DO Not Attach Compendium, Do Not Delete/merge, [id number] 04/05/2024 16:04:54 04/05/19 25 04/05/2024 influ prashanth virus A + B + SARS- CoV-2 (COVI D19) Ag panel , rapid IA, upper respi rator y speci men Rapid SARS CoV 2 Ag, QL IA, respiratory specimen negati ve Not Available In-Office Order Internal Use Only DO Not Attach Compendium DO Not Attach Compendium, Do Not Delete/merge, [id number] 04/05/2024 16:04:54 05/06/19 25 05/05/2024 Hemog lobin A1c/H emogl obin. total in Blood hemoglobin A1C, POC 7.2 % low: 4%high : 5.6% Hemog lobin A1C, POC 7.2 4.0 - 5.6 % Not Available Not Available 05/05/2024 15:03:42 Result Notes None recorded. Problems Name Problem SNOMED Code Status Onset Date Resolution Date Notes Provider Name and Address Organization Details Recorded Time Fibromya lgia 317417275 Active 2017 BEVERLY Perez, [place] - [facility] 1 16:38:13 Mixed anxiety and depressi ve disorder 459328922 Active 2018 declined med -doing fine without med B[place]LY [place], [place] - [facility] 1 16:38:13 Type 2 diabetes mellitus 96410314 Active 2018 EBVERLY [place] - [facility] 1 16:38:13 Obesity 896477858 Active 2011 BEVERLY [place] [facility] 0 15:21:56 Tension- type headache 439608704 Active 2013 B[place] [facility] 0 15:21:56 Hyperten sive disorder 68277763 Active 2013 B[place] [facility] 0 15:21:56 Obstruct natalee sleep apnea of adult 59360112896 03 Active 2011 B[place] [facility] 0 15:21:56 Carcinom a of endocerv ix 504563354 Active 2013 BEVERLY [place] [facility] 0 15:21:56 Hypersom supriya with sleep apnea 10707667 Active 2011 Tammy Park MA null, [place] - [facility] 0 15:21:56 Pain in throat 618314985 Completed 03/13/2016 Pushpa Olivera MD Attn: Shashank g,[address] [facility], [place], [address], [place] [facility] 7 15:35:19 Acute upper respirat ory infectio n 94781952 Completed 03/13/2016 Pushpa Olivera MD Attn: Accountrehan g,[address] [facility], [place], [address], [place] [facility] 7 15:35:26 Acute bronchit is 68952857 Completed 03/13/2016 Pushpa Olivera MD Attn: Shashank g,[address] [facility], [place], [address], [place] [facility] 7 15:35:16 Asthma 407864188 Completed 05/27/2017 Pushpa Olivera MD Attn: Shashank g,[address] [facility], [place], [address], [place] [facility] 8 12:08:25 Pain in left lower limb 967048830 Completed 03/13/2016 Pushpa Olivera MD Attn: Shashank g,[address] [facility], [place], [address], [place] [facility] 7 15:35:31 Pain in left arm 772854296 Completed 03/13/2016 Pushpa Olivera MD Attn: Shashank g,[address] [facility], [place], [address], [place] [facility] 7 15:35:23 Chronic cough 09941974 Completed 05/27/2017 Pushpa Olivera MD Attn: Shashank g,[address] [facility], [place], [address], [place] [facility] 8 12:08:30 Malignan t tumor of cervix 886868222 Active 2016 s/p chemorad iation Tammy Park MA null, [place] - [facility] 1 16:38:13 Problem Notes None recorded. Procedures Surgical History Date Name Laterality Status Provider Name and Address Organization Details Recorded Time 4 Date of Last Pap Smear completed Leta Walter MA [facility] [address] [address] 12/29/2023 11:15:56 2 Date of Last Mammogram completed Nicole Melendez MA [facility] 01/23/2022 14:47:37 Caesarean Section completed Monika Max MA [facility] 04/10/2015 16:50:47 Dilation and Curettage completed Monika Max MA [facility] 04/10/2015 16:50:47 LEEP completed Monika Max MA [facility] 04/10/2015 16:50:47 Imaging Results None recorded. Procedure Notes None recorded. Medical Equipment None Reported. Allergies Allergen ID Allergen Name Allergen Category Reaction Reaction Severity Criticality Documentation Date Start Date Code Code System Note Provider Name and Address Organization Details Recorded Time 429464 Cipro medicatio n rash moderate Not available 03/26/2019 72730 3 RxNorm Not Available Not Available Not Available 353412 Iodinated contrast media (substanc e) medicatio n Not available Not available Not available 12/29/2019 00043 2004 SNOMED Not Available Not Available Not Available 284737 metronida zole medicatio n other mild Not available 04/25/20202019 6922 RxNorm Not Available Not Available Not Available 773538 metformin medicatio n abdominal pain diarrhea gi bleed Not available Not available Not available Not available 2022 6809 RxNorm Not Available Not Available Not Available 27231 Product containin g penicilli n (product) medicatio n rash severe Not available 04/10/2015 02516 8001 SNOMED Not Available Not Available Not Available 24543 erythromy ariel medicatio n other Not available Not available 04/10/2015 4053 RxNorm Not Available Not Available Not Available Medications Name Sig Start Date Stop Date Status Note LastModified by Organization Details LastModified Time wal-zyr d tablets TK 1 T PO Q 12 H PRF NASAL COG 01/03 completed Not Available Not Available Not Available mag citrate grape jon 04/05 completed Not Available Not Available Not Available senna s 8.6-50mg tablets TAKE 1-2 PILLS NIGHTLY FOR CONSTIPA TION MANAGEME NT active Not Available Not Available No t Available magnesium citrate soln grape 296ml TAKE 150ML BY MOUTH TWICE DAILY NEEDED FOR CONSTIPA TION 04/05 completed Not Available Not Available Not Available metformin 500 mg tablet Take 1 tablet every day by oral route with meals. 03/10 completed not taking Not Available Not Available Not Available atorvasta tin 20 mg tablet Take 1 tablet every day by oral route for 90 days. 01/14 completed Not Available Not Available Not Available Zyrtec-D 5 mg-120 mg tablet,ex tended release TK 1 T PO BID 01/03 completed Not Available Not Available Not Available albuterol sulfate 2.5 mg/3 mL (0.083 %) solution for nebulizat ion USE 3 ML VIA NEBULIZE R THREE TIMES DAILY NEEDED active Not Available Not Available No t Available azithromy ariel 250 mg tablet TAKE 2 TABLETS (500 MG) BY ORAL ROUTE ONCE DAILY FOR 1 DAY THEN 1 TABLET (250 MG) BY ORAL ROUTE ONCE DAILY FOR 4 DAYS 04/05 completed Not Available Not Available Not Available fluconazo le 150 mg tablet TAKE 1 TABLET BY MOUTH 1 TIME FOR 1 DOSE 05/28 completed Not Available Not Available Not Available benzonata te 200 mg capsule TK 1 C PO TID PRN 04/18 completed Not Available Not Available Not Available fluconazo le 200 mg tablet TAKE 1 TABLET BY MOUTH EVERY 72 HOURS active Not Available Not Available No t Available ondansetr on HCl 4 mg tablet TAKE ONE TABLET BY MOUTH EVERY 8 HOURS NEEDED FOR NAUSEA active Not Available Not Available No t Available prednison e 20 mg tablet TAKE 1 TABLET BY MOUTH TWICE DAILY FOR 5 DAYS active Not Available Not Available No t Available metronida zole 500 mg tablet TAKE 1 TABLET BY MOUTH THREE TIMES DAILY 05/28 completed Not Available Not Available Not Available ciproflox acin 500 mg tablet TK 1 T PO BID FOR 10 DAYS 01/03 completed Not Available Not Available Not Available sulfameth oxazole 800 mg-trimet hoprim 160 mg tablet TAKE 1 TABLET BY MOUTH EVERY 12 HOURS FOR 10 DAYS 2024 active Not Available Not Available Not Avai lable omeprazol e 40 mg capsule,d elayed release Take 1 capsule every day by oral route. 04/15 completed pt states 40mg too strong for her Not Available Not Available Not Available tramadol 50 mg tablet Take 50 mg by oral route. 04/18 completed Not Available Not Available Not Available Macrobid 100 mg capsule 04/25 completed Not Available Not Available Not Available Mobic 15 mg tablet Take 1 tablet every day by oral route as needed. 03/10 completed Not Available Not Available Not Available hydrocort isone 2.5 % topical cream with perineal applicato r active Not Available Not Available Not Available Tessalon Perles 100 mg capsule Take 1 capsule 3 times a day by oral route as needed for cough. 2015 active Not Available Not Available Not Avai lable lancets Use to Test Blood Sugar 2024 active Not Available Not Available Not Avai lable OneTouch Ultra Test strips TEST BLOOD SUGAR DAILY active Not Available Not Available No t Available meclizine 25 mg tablet TAKE 1 TABLET BY MOUTH THREE TIMES DAILY NEEDED FOR DIZZINES S 05/28 completed Not Available Not Available Not Available cephalexi n 500 mg capsule TAKE 1 CAPSULE BY MOUTH TWICE DAILY FOR 5 DAYS 01/14 completed Not Available Not Available Not Available pantopraz ole 40 mg tablet,de layed release TAKE 1 TABLET BY MOUTH DAILY 01/14 completed PRN Not Available Not Available Not Available oseltamiv ir 75 mg capsule TAKE 1 CAPSULE BY MOUTH TWICE DAILY FOR 5 DAYS active Not Available Not Available No t Available esomepraz ole magnesium 40 mg capsule,d elayed release TAKE 1 CAPSULE BY MOUTH EVERY DAY 10/24 completed Not Available Not Available Not Available nystatin 100,000 unit/gram topical cream APPLY TO THE AFFECTED AREA TWICE DAILY active Not Available Not Available No t Available gabapenti n 300 mg capsule Take 1 capsule every day by oral route at bedtime. 07/18 completed Not Available Not Available Not Available omeprazol e 20 mg capsule,d elayed release TAKE 1 CAPSULE BY MOUTH EVERY DAY active Not Available Not Available No t Available hydrocort isone 2.5 % topical cream APPLY A SMALL AMMOUNT TO RECTUM UP TO TWICE DAILY NEEDED active Not Available Not Available No t Available gabapenti n 100 mg capsule TAKE 1 CAPSULE BY MOUTH THREE TIMES DAILY 09/13 completed Hasn't started this one yet Not Available Not Available Not Available levofloxa ariel 500 mg tablet TAKE 1 TABLET BY MOUTH DAILY FOR 10 DAYS 05/28 completed Not Available Not Available Not Available levofloxa ariel 750 mg tablet TK 1 T PO D FOR 7 DAYS 01/03 completed Not Available Not Available Not Available methylpre dnisolone 4 mg tablets in a dose pack FPD 01/03 completed Not Available Not Available Not Available albuterol sulfate HFA 90 mcg/actua tion aerosol inhaler INHALE 2 PUFFS BY MOUTH EVERY 6 HOURS NEEDED active Not Available Not Available No t Available Cipro 250 mg tablet Take 1 tablet every 12 hours by oral route for 7 days. 09/24 completed Not Available Not Available Not Available ondansetr on 4 mg disintegr ating tablet DISSOLVE ONE TABLET BY MOUTH EVERY 8 HOURS NEEDED FOR NAUSEA 07/24 completed Not Available Not Available Not Available fluticaso ne propionat e 50 mcg/actua tion nasal spray,cristobal pension SHAKE LIQUID AND USE 2 SPRAYS IN EACH NOSTRIL DAILY 2024 active Not Available Not Available Not Avai lable metformin ER 500 mg tablet,ex tended release 24 hr TAKE 1 TABLET BY MOUTH EVERY DAY active Not Available Not Available No t Available loratadin e 10 mg tablet Take 1 tablet every day by oral route. 01/03 completed Not Available Not Available Not Available esomepraz ole magnesium 20 mg capsule,d elayed release 07/24 completed Not Available Not Available Not Available Cymbalta 30 mg capsule,d elayed release Take 1 capsule every day by oral route. 03/10 completed not taking Not Available Not Available Not Available omeprazol e 20 mg po daily 03/10 completed Not Available Not Available Not Available Bactrim 10/10 completed Not Available Not Available Not Available Nexium 02/13 completed Not Available Not Available Not Available Januvia 100 mg tablet TAKE 1 TABLET BY MOUTH EVERY DAY active Not Available Not Available No t Available Super Thin Lancets 28 gauge USE DIRECTED TO TEST BLOOD SUGAR DAILY AND NEEDED active Not Available Not Available No t Available Stimulant Laxative Plus 8.6 mg-50 mg tablet TAKE 1-2 PILLS NIGHTLY FOR CONSTIPA TION MANAGEME NT active Not Available Not Available No t Available Farxiga 5 mg tablet TAKE 1 TABLET BY MOUTH EVERY DAY 05/24 completed PA Denied Not Available Not Available Not Available Jardiance 10 mg tablet Take 1 tablet every day by oral route for 90 days. 08/01 completed Not Available Not Available Not Available Jardiance 25 mg tablet TAKE 1 TABLET BY MOUTH EVERY DAY active Not Available Not Available No t Available OneTouch Ultra2 Meter USE TO TEST BLOOD SUGAR DAILY active Not Available Not Available No t Available OneTouch Delica Plus Lancet 30 gauge USE TO TEST BLOOD SUGAR ONCE A DAY active Not Available Not Available No t Available Vitals Date Recorded Body height Body mass index (BMI) Body weight Heart rate Oxygen saturation Oxygen saturation in Arterial blood by Pulse oximetry Systolic blood pressure Diastolic blood pressure Provider Name and Address Organization Details Last Updated DateTime 4 162.56 cm 28.7 kg/m2 37592.0 3 g 71 /min 99 % 99 % 120 mm[Hg] 82 mm[Hg] Leta Walter MA [facility] 4 14:09:23 Date Recorded Body height Body mass index (BMI) Body weight Oxygen saturation Oxygen saturation in Arterial blood by Pulse oximetry Heart rate Systolic blood pressure Diastolic blood pressure Provider Name and Address Organization Details Last Updated DateTime 4 162.56 cm 28.5 kg/m2 95523.0 3 g 96 % 96 % 81 /min 106 mm[Hg] 64 mm[Hg] BEVERLY Schafer [facility] 4 15:40:56 Date Recorded Body height Body mass index (BMI) Body weight Heart rate Systolic blood pressure Diastolic blood pressure Provider Name and Address Organization Details Last Updated DateTime 4 162.56 cm 28.3 kg/m2 41288.7 4 g 77 /min 116 mm[Hg] 73 mm[Hg] Leta Walter MA [facility] 4 11:16:52 Date Recorded Body height Body mass index (BMI) Body weight Oxygen saturation Oxygen saturation in Arterial blood by Pulse oximetry Heart rate Systolic blood pressure Diastolic blood pressure Provider Name and Address Organization Details Last Updated DateTime 4 162.56 cm 28.3 kg/m2 02934.4 4 g 97 % 97 % 96 /min 118 mm[Hg] 84 mm[Hg] Leta Walter MA [facility] [address] 4 14:53:05 Date Recorded Body height Body mass index (BMI) Body weight Oxygen saturation Oxygen saturation in Arterial blood by Pulse oximetry Heart rate Respiratory rate Body temperature Systolic blood pressure Diastolic blood pressure Provider Name and Address Organization Details Last Updated DateTime 5 162.56 cm 27.8 kg/m2 14376.6 8 g 97 % 97 % 82 /min 16 /min 98.5 [degF] 126 mm[Hg] 82 mm[Hg] Sejal Daniel MA [facility] [address] 5 16:03:13 Social History Question Answer Notes LastModified by Organizat ion Details LastModified Time Tobacco Smoking Status Former [facility]oker Quit - [facility] 03/13/2016 15:21:50 What Is Your Level Of Alcohol Consumption? None Information not available 03/13/2016 Are You Blind Or Do You Have Difficulty Seeing? Yes Piper hines Information not available 12/03/2021 Is Blood Transfusion Acceptable In An Emergency? Yes liya Information not available 04/29/2016 What Is Your Level Of Caffeine Consumption? None Information not available 03/13/2016 How Much Tobacco Do You Chew? None Information not available 03/13/2016 In The 14 Days Before Symptom Onset, Have You Had Close Contact With A Laboratory-confi rmed COVID-19 While That Case Was Ill? No Information not available 07/28/2019 In The 14 Days Before Symptom Onset, Have You Had Close Contact With A Person Who Is Under Investigation For COVID-19 While That Person Was Ill? No Information not available 07/28/2019 Have You Been To An Area Known To Be High Risk For COVID-19? No Information not available 07/28/2019 Are You Currently Employed? No [email or web address] Information not available 10/24/2020 Are You Deaf Or Do You Have Serious Difficulty Hearing? No Information not available 09/13/2020 What Type Of Diet Are You Following? REGULAR Information not available 03/13/2016 Which Illicit Or Recreational Drugs Have You Used? Denies Information not available 03/13/2016 Do You Or Have You Ever Used E-cigarettes Or Vape? Never Used Electronic Cigarettes Information not available 03/10/2019 Education 11 Information no t available 04/29/2016 What Is Your Occupation? Unemployed Information not available 03/10/2019 Are There Any Guns Present In Your Home? No Information not available 03/10/2019 Live Alone Or With Others? With Others Information not available 04/29/2016 Marital Status Informatio n not available 03/13/2016 What Was The Date Of Your Most Recent Tobacco Screening? 04/05/2024 Information not available 04/05/2024 How Many Children Do You Have? 3 Information not available 04/29/2016 Performs Monthly Self-breast Exam? Yes Information not available 04/29/2016 Do You Use Protection During Sex? No Information not available 04/29/2016 What Is Your Relationship Status? Information not available 04/29/2016 Do You Use Your Seat Belt Or Car Seat Routinely? Yes Information not available 09/13/2020 Seat Belts Used Routinely Yes Information not available 03/10/2019 Are You Sexually Active? Yes Information not available 04/29/2016 Smoke Alarm In Home Yes Information not available 03/10/2019 Do You Have Smoke And Carbon Monoxide Detectors In Your Home? Yes Information not available 09/13/2020 At What Age Did You Start Smoking Tobacco? 14 Information not available 03/13/2016 Are You Passively Exposed To Smoke? No Information not available 09/13/2020 Do You Or Have You Ever Used Smokeless Tobacco? Never Used Smokeless Tobacco Information not available 03/10/2019 How Much Tobacco Do You Smoke? No [email or web address] Information not available 04/10/2015 General Stress Level Low Information not available 07/28/2019 Do You Feel Stressed (tense, Restless, Nervous, Or Anxious, Or Unable To Sleep At Night)? [id number] [email or web address] Information not available 10/24/2020 Do You Use Any Illicit Or Recreational Drugs? No Information not available 09/13/2020 Do You Use Sunscreen Routinely? Yes Information not available 03/10/2019 Has Tobacco Cessation Counseling Been Provided? No Information not available 05/28/2021 On What Date Was Tobacco Cessation Counseling Provided? 04/05/2024 Information not available 04/05/2024 How Many Years Have You Smoked Tobacco? 7 Information not available 03/13/2016 Do You Or Have You Ever Used Any Other Forms Of Tobacco Or Nicotine? No [email or web address] Information not available 10/24/2020 Sex: Female Functional Status Question Answer Note LastModified by Organizat ion Details LastModified Time Are you able to care for yourself? Yes Information not available 04/18/2020 What is your exercise level? Occasional [email or web address] Information not available 12/03/2021 Mental Status None recorded. Family History Relationship Description Onset Age of this Age Resolved Age Notes LastModified by Organization Details LastModified Time Mother Depressive disorder [email or web address] Not available 03/21 16:50:47 Mother Diabetes mellitus [email or web address] Not available 03/21 16:50:47 Mother Essential hypertension [email or web address] Not available 0 04/10/2015 16:50:47 Medical History Condition Response Coronary Artery Disease N Other N High Blood Pressure N Atrial Fibrillation N Breast Cancer N Depression N COPD N Blood Clots Y Lung Disease N Breast Problem N Anesthesia Complications N Headaches/Migraines N Anxiety Disorder Y Muscle, Joint, or Bone Problems N Infertility N Polyps N Acid Reflux (GERD) Y Cancer Y Stroke N Endometriosis N High Cholesterol N Liver Disease N Headaches N Kidney or Bladder Problems N Thyroid Problems N GI Problems N Acne N Eating Disorder N Skin Problems N Anemia N Heart Attack ([place]) N Ovarian Cancer N Diabetes N Blood Transfusions N Seizures/Epilepsy Y Abuse/Domestic Violence N Asthma Y Allergies N Hepatitis N Heart Disease N Pre-Eclampsia N Osteoporosis N Heart Failure N Gynecological History Statement/Question Response Abnormal Pap Y Date of Last Mammogram 08/20/2021 Sexually Active? Y Menses Monthly N STIs/STDs Y HPV Vaccine N Date of Last Pap Smear 08/27/2023 Sexual Problems? N Current Control Method Menopause LMP Definite Obstetrics History GPAL:G 4 P 3 0 1 3 Type Value Multiple Births 0 Full Term 3 Induced 1 Spontaneous 0 Premature 0 Living 3 Ectopics 0 Total 4 Immunizations Vaccine Type Date Status Note Provider Nam e and Address Organization Details Recorded Time Influenza, split virus, trivalent, preservative 5 completed TISHA ANGEL NP Attn: Accounting,[address] [facility], [place], [address], [facility] 12/29/2023 14:18:33 Past Encounters Encounter ID Performer Location Encounter Start Date Encounter Closed Date Diagnosis/Indication Diagnosis SNOMED-CT Code Diagnosis ICD10 Code Diagnosis Note [id number] Mitchel Rodriguez (Adult Med) [address] [place] [address] 04/10/2015 16:38:16 04/10/2015 17:58:46 Pain in throat 289405826 R07.0 Rapid strep test is negative. Salt water gargling 4 times daily Acute uppe r respiratory infection 86156418 J06.9 Advised patient to take otc Mucinex,Al legra D . Drinks plenty of oral fluids. Salt water gargling 4 times daily. [id number] Mitchel Rodriguez (Adult Med) [address] [place] [address] 04/13/2015 14:25:18 04/17/2015 15:41:17 Acute bronchitis 32506196 J20.9 Contiue Albuterol hfa 2 puffs q 6h prn. Azithromyc in for 5 days.Patie nt said she has no allergy to Azithromyc in. Medrol 4 m dose pack as directed. Follow up as needed. [id number] MD Michael Cruz (Adult Med) [address] [place] [address] 04/21/2015 11:54:25 04/21/2015 17:23:11 Asthma 061379799 J45.30 As above Pain in le ft lower limb 924982329 M79.605 pt had superficia l venous thrombosis on UE during chemo per pt check doppler to r/o DVT Pain in left arm 9612234 00 M79.602 Chronic cough 78907351 R 05 Possibly due to Asthma vs postnasal drip pt is on PPI for GERD Add Q joe -sample given to pt -instructe d pt to rinse her mouth after use the inhaler Tessalon leena for cough cxr at ER-neg per pt consider CT chest if problem continues ( h/o cervical ca -s/p chemo and radiation) [id number] [facility] [address] [place] [address] 05/23/2015 12:20:54 05/24/2015 10:17:29 Adult health examination 810398661 Z00.00 Chronic cough 96511351 R 05 Possibly due to Asthma pt is on PPI for GERD cxr at ER-neg [id number] [facility] [address] [place] [address] 03/13/2016 15:08:28 03/13/2016 16:17:58 Eczema 52710686 L30.9 keep area clean and dty [id number] Dora Rodriguez ([employer]) [address] [place] [address] 04/29/2016 10:16:13 05/22/2016 09:40:57 Suprapubic pain 418746686 R10.33 UA negative, dwp. Vaginal culture sent. Fatigue 00646341 R53.83 Pt. with c/o fatigue. Will check labs. Pt. to call for results in one week. [id number] MD Joan Cruzhalto (Adult Med) [address] [place] [address] 09/20/2016 10:53:45 09/24/2016 11:03:59 Acute urinary tract infection 656876053 N39.0 increase fluid Fatigue 92889418 R53.83 with h/o chemoradia iton for cervical cancerchec k labs Chest pain 22921382 R07. 9 possibly muscle spasmcheck ekgpt to go to ER if chest pain gets worse [id number] Dora Rodriguez ([employer]) [address] [place] [address] 09/24/2016 15:28:14 12/06/2016 13:56:18 Pruritus of vulva 64020888 L29.2 Probable yeast infection given history even though exam wnl. Will treat with diflucan. Culture sent. [id number] [facility] [address] [place] [address] 10/01/2016 14:27:44 10/01/2016 15:57:23 Acute urinary tract infection 637631263 N39.0 increase fluidpt to complete Bactrim Overweight 495141680 E66 .3 [id number] [facility] [address] [place] [address] 10/10/2016 10:59:29 10/10/2016 17:23:54 Dysuria 48735078 R30.0 UA negative. Spec. grav was 1030. Pt. advised to increase water intake to 96 oz. daily. Microscopic hematuria [address] done 09/23/16 was normal, no stones, normal bladder. Had UTI, was treated. [id number] [facility] [address] [facility] [place] [address] 05/19/2017 15:35:51 05/20/2017 12:12:48 Candidal vulvovaginitis 38434185 B37.3 Diagnosis d/w pt. Rx sent to pharmacy. Instructio mariposa discussed. Pruritus of vulva 910152 00 L29.2 Probable yeast infection given history even though exam wnl. Will treat with diflucan. Culture sent.Pt too uncomforta ble to stand for long periods of time s/p bladder surgery 3 weeks ago. Time off work extended. [id number] Pushpa Olivera MD [facility] (Adult Med) [address] [facility] [place] [address] 05/27/2017 10:47:41 05/27/2017 17:51:36 Mixed anxiety and depressive disorder 089172093 F41.8 pt wants to try counsellin g first Fibromyalgia 136214600 M 81.7 with depression /hot flashespt is reluctant to try med , but eventually agreed to try gabapentin check labs to r/o infamatory arthritis [id number] MD Michael Cruz (Adult Med) [address] [place] [address] 07/17/2017 14:45:58 07/18/2017 10:30:59 Fibromyalgia 257645732 M79.7 with depression /hot flashespt is reluctant to try medpt stopped gabapentin labs to r/o infamatory arthritis -negpt is seeing pT Ankle pain 850352983 M25 .571 pt is taking otc nSAIDevalu ated in ER yesterday and on brace [id number] MD Michael Cruz (Adult Med) [address] [place] [address] 08/15/2017 11:24:55 08/15/2017 15:40:19 Abdominal pain 93389226 R10.9 etiology -not clearpt has h/o cervical ca and seeing onco who had CT done in the past per ptcheck CT abd/pelvis Right uppe r quadrant pain 766165717 R10.11 meal related paincheck us of gallbladde r [id number] Dora An Michael (BOX CAR LOADER) [address] [facility] [place] [address] 10/08/2017 10:43:14 10/09/2017 15:59:11 Suprapubic pain 026958424 R10.33 UA positive, dwp. See below Urinary tr act infectious disease 01488471 N39.0 Diagnosis d/w pt. Rx sent to pharmacy. Lashay monge discussed. [id number] MD Michael Cruz (Adult Med) [address] [place] [address] 02/24/2018 09:03:25 02/27/2018 13:06:43 Mixed anxiety and depressive disorder 068120884 F41.8 pt showed lots of reluctant to try meds and finally agreed to try cymbalta at low dose and willing to see therapist as well Fibromyalgia 623836788 M 81.7 with depression /hot flashespt is reluctant to try medpt tried gabapentin in the past and stopped it on her ownlabs to r/o infamatory arthritis -neg Rib pain 150012038 R07.8 1 with h/o fall and point tenderness check xray Low back pain 421554246 M54.5 with h/o fall Neck pain 45956897 M54.2 heat therapymob ic prn Malignant tumor of cervix 524099056 C53.9 pt is seeing specialist s in [place] -has f/u in 03/10/18 Hyperlipid emia screening 015404619 Z13.209 [id number] [facility] [address] [place] [address] 03/10/2019 09:08:57 03/11/2019 12:16:59 Gastroesophageal reflux disease without esophagitis 554802472 K21.9 stable on omeprazole Mixed anxi ety and depressive disorder 053413753 F41.8 pt showed lots of reluctant to try meds-pt is doing fine without med at present time . Fibromyalgia 202753551 M 81.7 pt is reluctant to try medpt tried gabapentin /cymbalta in the past and stopped it on her ownlabs to r/o infamatory arthritis -neg Type 2 pratima betes mellitus 98134781 E11.9 pt declined to take medpt to follow diabetic diet History of diverticulitis 5118713096 31364 Z87.19 s/p rxpt has apt to see GI per pt [id number] [facility] [address] [place] [address] 03/26/2019 12:00:36 03/29/2019 08:06:11 Eruption 912330119 R21 resolved. Abdominal pain 60357154 R10.9 pt was rxed with cipro /flagyl .Had rash with cipro -pt denied abdominal pain at present time . Low back pain 398619063 M54.5 with h/o fall in 02/04 per pt [id number] [facility] [address] [place] [address] 07/28/2019 08:05:58 07/29/2019 13:54:46 Type 2 diabetes mellitus 90319830 E11.9 pt declined to take medpt to follow diabetic diet [id number] [facility] [address] [place] [address] 11/24/2019 08:27:07 11/26/2019 17:02:04 Type 2 diabetes mellitus 11657706 E11.9 pt declined to take med including statin.pt to follow diabetic diet.pt to go for eye exam . [id number] MD Michael Cruz (Adult Med) [address] [place] [address] 11/25/2019 08:11:33 11/26/2019 17:28:09 Upper respiratory infection 23674328 J06.9 keep good hydration/ salt water gargle .pt to go for covid testing . [id number] CLEMENTINE Kelley [address] [place] [address] 11/25/2019 09:35:00 11/30/2019 11:16:54 Viral screening 067457538 Z11.59 D/w pt the current pandemic of COVID-19 and call for social isolation in order to blunt the curve and minimize risk and spread. Encouraged patient and family to take restrictio ns seriously. They have verbalized understand ing of such. Viral syndrome 413443834 B34.9 [id number] ALEIDA Soto [facility] [address] [place] [address] 12/29/2019 10:06:19 12/29/2019 12:21:59 Acute maxillary sinusitis 30167522 J01.01 [id number] ALEIDA Soto [facility] [address] [place] [address] 01/04/2020 15:27:01 01/04/2020 16:20:29 Candidiasis of mouth 99548262 B37.0 [id number] ALEIDA Soto [facility] [address] [place] [address] 01/27/2020 09:36:47 01/27/2020 15:48:56 Urinary tract infectious disease 37734195 N10 [id number] ALEIDA Soto [facility] [address] [place] [address] 04/18/2020 09:33:32 04/18/2020 15:31:30 Gastroesophageal reflux disease without esophagitis 562230677 K21.9 Acute urin jatin tract infection 785495736 N39.0 Peripheral neuropathic pain 156970857 M79.2 [id number] Darrick Hedrick PA-C [place] [address] [place] [address] 04/25/2020 09:40:20 04/25/2020 17:14:28 Taste sense altered 724059388 R43.2 Sense of s cole altered 323186020 R43.1 [id number] CLEMENTINE Kelley [address] [place] [address] 04/27/2020 08:59:42 04/28/2020 08:36:42 Viral screening 661984561 Z11.59 D/w pt the current pandemic of COVID-19 and call for social isolation in order to blunt the curve and minimize risk and spread. Encouraged patient and family to take restrictio ns seriously. They have verbalized understand ing of such. 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 No lesions. Culture obtained. Will call with results.Po ssibility of bleeding from bladder or rectum d/w pt. Since UA negative with PCP and CTA wanting her to do colon testing, pt. encouraged to follow-up with colon testing. [id number] Darrick Hedrick PA-C [facility] [address] [place] [address] 02/13/2021 14:32:12 02/13/2021 15:06:51 Type 2 diabetes mellitus 71155153 E11.9 Obesity 364424231 E66.3 [id number] Darrick Hedrick PA-C [facility] [address] [place] [address] 05/28/2021 14:30:09 05/28/2021 15:13:07 Gastroesophageal reflux disease without esophagitis 825564098 K21.9 Uncontroll ed type 2 diabetes mellitus 963946966 E11.65 Mixed hyperlipidemia 267 932945 E78.2 [id number] Darrick Hedrick PA-C [facility] [address] [place] [address] 07/24/2021 17:31:08 07/24/2021 17:48:53 Calculus of kidney and ureter 718334470 N20.2 [id number] Darrick Hedrick PA-C [facility] [address] [place] [address] 08/31/2021 15:09:31 08/31/2021 15:57:10 Overweight 219181507 E66.3 Morbid obesity 783760724 E66.01 Type 2 pratima betes mellitus 88734703 E11.9 [id number] Darrick Hedrick PA-C [facility] [address] [place] [address] 12/03/2021 14:51:59 12/03/2021 15:56:08 High hemoglobin A1c level 983612759 R73.09 [id number] Darrick Hedrick PA-C [facility] [address] [place] [address] 01/23/2022 14:42:53 01/23/2022 15:19:20 Strain of right trapezius muscle 2216029353 0510582 S29.012A Overweight 671477280 E66 .3 [id number] Darrick Hedrick PA-C [facility] [address] [place] [address] 05/20/2022 15:00:39 2022 10:31:34 Fatigue 32155831 R53.83 Obstructiv e sleep apnea syndrome 92343306 G47.33 Hyperglyce mason due to type 2 diabetes mellitus 0050811404 56958 E11.65 Overweight 000245629 E66 .3 Type 2 pratima betes mellitus without complication 179417019 E11.9 [id number] Tammy Park MA [facility] [address] [place] [address] 06/28/2022 10:21:34 07/02/2022 09:07:56 Increased frequency of urination 055144764 R35.0 [id number] [facility] [address] [place] [address] 07/24/2022 14:33:40 08/06/2022 08:47:34 Dysuria 92737205 R30.0 - Reviewed abnormal dipstick results with patient; f/u UA/M with reflex culture- Will treat empiricall y for UTI based on symptoms with Keflex 500 mg BID x5d Vaginal irritation 13148 6004 N89.8 - f/u NuSwab; will treat as indicated by results- Symptoms may be related to suspected UTI [id number] Darrick Hedrick PA-C [facility] [address] [place] [address] 07/31/2022 17:51:04 08/06/2022 12:37:10 Type 2 diabetes mellitus without complication 390081760 E11.9 Type 2 pratima betes mellitus 84096093 E11.9 Overweight 667970706 E66 .3 [id number] Tammy Park MA [facility] [address] [place] [address] 01/14/2023 15:01:20 01/15/2023 11:25:43 Right side sciatica 4570388968 80448 M54.31 Overweight 675825272 E66 .3 Type 2 pratima betes mellitus 92899608 E11.9 [id number] Darrick Hedrick PA-C [facility] [address] [place] [address] 08/20/2023 13:53:40 08/22/2023 12:46:56 Type 2 diabetes mellitus 06220922 E11.9 Candidiasis of vagina 72 896767 B37.31 Candidiasis of mouth 797 44435 B37.0 [id number] Darrick Hedrick PA-C [facility] [address] [place] [address] 09/24/2023 15:31:20 09/29/2023 15:29:53 Bite of gnat 884781815 W57.XXXA Type 2 pratima betes mellitus 14575901 E11.9 Overweight 899004215 E66 .3 [id number] TISHA CLEMENTINE ANGEL [facility] [address] [place] [address] 12/29/2023 10:56:26 12/31/2023 11:21:32 Gynecologic examination 10121362 Z01.419 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 1. Last pap smear: 08/27/2023 will send for records2. STI screening {{complete d declined *}}.3. Pt is postmenopa usal.4. Discussed breast self awareness5 . Mammogram 08/27/2023 will send for records6. Discussed when to return to clinic for /ARCHITECTURAL PRACTICE MANAGER complaints . Overweight 176648023 E66 .3 Menopause 845439415 Z78. 0 pt is post menopausal Discussed vaginal changes, moisturize rs and lubricatio nDiscussed returning to clinic with any vaginal bleedingDi scussed Calcium and Vitamin D supplement ation [id number] Darrick Hedrick PA-C [facility] [address] [place] [address] 01/02/2024 14:41:10 01/09/2024 11:23:44 Flank pain 130498965 R10.9 Type 2 pratima betes mellitus without complication 642193088 E11.9 Overweight 921046328 E66 .3 Urinary tr act infectious disease 15724657 N10 [id number] Darrick Hedrick PA-C [facility] [address] [place] [address] 04/05/2024 15:53:27 04/09/2024 09:11:40 Nasal congestion 84692325 R09.81 Right bund le branch block 12310698 I45.19 Upper resp iratory infection 39159588 J01.01 Overweight 435290437 E66 .3 Upper resp iratory tract infection caused by Influenza A 8524972805 68763 J09.X2 Health Concerns Section Related Observation LastModified by Organization Detai ls LastModified Time None Recorded Concern Status LastModified by Organization Details LastModified Time None Recorded Advance Directives Directive None Recorded Payers Encounter Date Sequence Insurance Name Policy Number Policy Hylton Covered Member ID Hylton Member ID Guarantor Name 08/20/2023 1 [facility] [id number] David Johnson [id number] Estephania Johnson 09/24/2023 1 [employer] [id number] David Johnson [id number] Estephania Tendick 12/29/2023 1 [employer] [id number] David Johnson [id number] Estephania Tendick 12/29/2023 2 [place] [facility] Estephania Johnson [id number] Estephania Tendick 01/02/2024 1 [employer] [id number] David Johnson [id number] Estephania Tendick 01/02/2024 2 [place] [facility] Estephania Johnson [id number] Estephania Tendick 04/05/2024 1 [facility] [facility] [id number] David Johnson [id number] Estephania Tendick 04/05/2024 2 [place] [facility] Estephania Tendick [id number] Estephania Tendfozia Notes Date Note Type Note Provider Name and Address Organization Details Recorded Time 08/20/2023 text/html urinating frequently...a1c was down to 7.8...losing weight..reports compliance with meds...says her blood sugar swings like this ...has been eating a lot of grapes and cantaloupe..just started jardience and reports jardience is improving her diabetes Darrick Hedrick PA-C Attn: Accounting,[address] [facility], [place], [address], [facility] [place] 08/20/2023 14:26:31 09/24/2023 text/html got bitten by an insect that swelled last night and itched...has decreased a little.. Darrick Hedrick PA-C Attn: Accounting,[address] [facility], [place], [address], [facility] [place] 09/24/2023 16:16:52 12/29/2023 text/html Estephania hart a 48 yo with HX of DM, HTN, GERD and cervical cancer presenting to get established for care. Reports menopause in 2013 after her chemo and radiation. She is being treated at the [facility] in [place], [place]. She goes yearly for her pap and mammogram. She had LEEP x 3 done. Denies any /ARCHITECTURAL PRACTICE MANAGER complaints. Denies any breast changes/pain, fatigue/cold intolerance/hair loss/dry skin. Denies dyspareunia, pelvic pressure or bowel movement changes.Denies SOB/chest pain/dizziness. Denies any fever or chills. Denies any family history of breast, ovarian, endometrial or pancreatic cancer. LMP: 2013Last pap smear: 08/27/2023 will send for recordsPap due: Yearly due to HX of cervical cancerLast Mammogram: 08/27/2023Last Colonoscopy: 11/17/2012 currently seeing GIPatient {{is is not*}} sexually active due to chemo and radiation treatment. Patient has had 1 {{male* female}} partner in the past 24 years. TISHA ANGEL NP Attn: [address] [place], [address], [facility] 12/29/2023 14:19:19 01/02/2024 text/html left ear pain an d urine pain since yesterday...on jardience currently...would like to switch endo to jennifer soliman... Darrick Hedrick PA-C Attn: Accounting,[address] [facility], [place], [address], [place] [facility] 01/02/2024 15:23:43 04/05/2024 text/html cough fatigue a little body aches..present for a week Darrick Hedrick PA-C Attn: Accounting,[address] [facility], [place], [address], [place] [facility] 04/05/2024 16:17:57 OBGyn Episode No OBEpisode recorded.
[2024-05-29 16:45] VITALS: BP 131/80; PULSE 80; RESP 18; TEMP 36.4; O2SAT 97
--- NOTE | 2024-05-29 17:30 | ED_ITS ---
HPI - General Adult General Chief complaint: Dental/Oral Stated complaint: Mouth Sore/Ear Pain Source: patient Mode of arrival: ambulatory Limitations: no limitations History of Present Illness HPI narrative: Patient presents for evaluation of right lower dental pain. She indicates she had a tooth extracted 4 days ago. She has experience pain in the right mandible since that time. Pain is also shooting into the right side of her face and down into the right side of her neck. She states her pain is 10 out 10 in severity. She denies any fever, chills, nausea, vomiting. She has been taking Tylenol and ibuprofen for symptoms. She does not smoke. Related Data Home Medications ?Medication ?Instructions ?Recorded ?Confirmed ?Last Taken ?Type omeprazole 20 mg capsule,delayed 20 mg PO DAILY 12/07/19 01/31/20 Unknown History release albuterol sulfate 90 mcg/actuation 2 puff inhalation Q4-6H PRN 02/07/24 Unknown History aerosol inhaler shortness of breath or wheezing empagliflozin 25 mg tablet 25 mg PO DAILY 02/07/24 Unknown History (Jardiance) sitagliptin phosphate 100 mg 100 mg PO DAILY 02/07/24 Unknown History tablet (Januvia) metformin 500 mg tablet,extended mg PO 05/29/24 Unknown History release 24 hr rosuvastatin 5 mg tablet mg 05/29/24 Unknown History sennosides 8.6 mg-docusate sodium PO 05/29/24 Unknown History 50 mg tablet (Stimulant Laxative Plus) sulfamethoxazole 800 tablet 05/29/24 Unknown History mg-trimethoprim 160 mg tablet Allergies Allergy/AdvReac Type Severity Reaction Status Date / Time Penicillins Allergy Rash Verified 05/29/24 17:02 Review of Systems Review of Systems: CONSTITUTIONAL: Denies fever, chills, or sweats. EYES: Denies visual changes, redness, or discharge. ENT: Reports right lower dental pain with radiation to the face and into the neck. Denies rhinorrhea, congestion, sore throat, or otalgia. CARDIOVASCULAR: Denies chest pain, palpitations, or edema. RESPIRATORY: Denies cough or dyspnea. GASTROINTESTINAL: Denies abdominal pain, nausea, vomiting, or diarrhea. GENITOURINARY: Denies dysuria or hematuria. SKIN: Denies rash or itching. MUSCULOSKELETAL: Denies back pain, joint pain, or myalgia. NEUROLOGIC: Denies headache, numbness, dizziness, or weakness. PSYCHIATRIC: Denies anxiety or depression. [facility] Past Medical History Medical History Ear infection Diabetes Cervical cancer That included lymph nodes and received radiation and chemo delivery delivered Hernia Enlarged liver Surgical History Surgical History (Reviewed 05/29/24 @ 17:32 by Preston Del Rio [facility], ) H/O section X3 Family History Family History Father Hypertension Cerebrovascular accident Mother Diabetes mellitus Paranoid schizophrenia Social History Social History Smoking status: Former smoker Tobacco type: cigarettes Second hand tobacco smoke exposure: No Smoking end date: 02/17/99 Alcohol intake: never Substance use: never Living arrangements: with family Occupation/Education: unemployed Gender identity (if verbalized by the patient): Female Sexual Orientation (if Verbalized by the Patient): Straight or Heterosexual Exam Narrative: GENERAL: Well-appearing, well-nourished, and in no acute distress. HEAD: Normocephalic, atraumatic. EYES: PERRLA and EOMI. ENT: Nares clear, no rhinorrhea or epistaxis. Mucous membranes moist. Oropharynx without tonsillar hypertrophy exudate or other lesions. Bilateral TMs pearly montague nonbulging. Tooth #28 is absent. There is tenderness in the gumline of the dental extraction. I do not appreciate a visible or palpable abscess NECK: Supple. No adenopathy or masses. No carotid bruits or JVD CHEST: Clear to auscultation. No respiratory distress. No wheezes rales or rhonchi HEART: Regular rate and rhythm. No murmur heard. Normal peripheral pulses. ABDOMEN: Soft, nontender, nondistended, normal active bowel sounds. EXTREMITIES: Normal range of motion. No edema. SKIN: Warm, dry, no rash. NEURO: No focal deficits. Alert and oriented x3. PSYCH: Normal mood and affect. Course Course Emergency Course: This is a 49-year-old female who presented for evaluation right lower dental pain. Will change Bactrim to clindamycin. She will continue with Tylenol and ibuprofen. She was advised to follow-up with her dentist and primary care provider. She was advised to go to the ER for worsening symptoms. Patient in agreement with plan of care Level of Care: Express Care Visit Vital Signs Vital signs: Vital Signs Temperature 36.4 C L 05/29/24 16:45 Pulse Rate 80 05/29/24 16:45 Respiratory Rate 18 05/29/24 16:45 Blood Pressure 131/80 05/29/24 16:45 Pulse Oximetry 97 05/29/24 16:45 Oxygen Delivery Room Air 05/29/24 16:45 Temperature 36.4 C L 05/29/24 16:45 Pulse Rate 80 05/29/24 16:45 Respiratory Rate 18 05/29/24 16:45 Blood Pressure 131/80 05/29/24 16:45 Pulse Oximetry 97 05/29/24 16:45 Oxygen Delivery Room Air 05/29/24 16:45 Medical Decision Making Vital Signs Vital Signs: Vital Signs Temperature 36.4 C L 05/29/24 16:45 Pulse Rate 80 05/29/24 16:45 Respiratory Rate 18 05/29/24 16:45 Blood Pressure 131/80 05/29/24 16:45 Pulse Oximetry 97 05/29/24 16:45 Oxygen Delivery Room Air 05/29/24 16:45 Temperature 36.4 C L 05/29/24 16:45 Pulse Rate 80 05/29/24 16:45 Respiratory Rate 18 05/29/24 16:45 Blood Pressure 131/80 05/29/24 16:45 Pulse Oximetry 97 05/29/24 16:45 Oxygen Delivery Room Air 05/29/24 16:45 Discharge Plan Discharge Clinical Impression: Pain, dental Patient Disposition: Home Condition: Stable Instructions: Antibiotic Form, Toothache (ED) Patient Language: Maltese Prescriptions: New clindamycin HCl [Cleocin HCl] 300 mg capsule 300 mg PO Q6H 10 Days Qty: 40 0RF No Action sennosides-docusate sodium [Stimulant Laxative Plus] 8.6-50 mg tablet PO sulfamethoxazole-trimethoprim 800-160 mg tablet metformin 500 mg tablet extended release 24 hr PO rosuvastatin 5 mg tablet omeprazole 20 mg capsule,delayed release(DR/EC) 20 mg PO DAILY Jardiance 25 mg tablet 25 mg PO DAILY Januvia 100 mg tablet 100 mg PO DAILY albuterol sulfate 90 mcg/actuation HFA aerosol inhaler 2 puff INHALATION Q4-6H PRN (Reason: shortness of breath or wheezing) Follow-up/Referrals: Ryley,ROSEY Carpenter [Primary Care Provider] - Time of Disposition: 17:26
== END 2024-05-29 17:32 | disposition home or self-care (01) ==
PROVIDERS: Emergency Provider Nurse Practitioner; PCP Physician Assistant
DX: K08.89 Other specified disorders of teeth and supporting structures (principal); E11.9 Type 2 diabetes mellitus without complications; Z85.41 Personal history of malignant neoplasm of cervix uteri; Z79.84 Long term (current) use of oral hypoglycemic drugs; Z79.899 Other long term (current) drug therapy; Z87.891 Personal history of nicotine dependence
CPT/HCPCS: 99213; G0463

== ENCOUNTER 2024-06-04 18:37 | Emergency (ER) | payer OTHER, SELFPAY ==
--- OUTSIDE RECORDS SUMMARY | 2024-06-04 18:40 | XMS_ITS | Referral Summary ---
Author Organization [facility] Address [address] [place] [address] Care Team Providers Care Pmp Certified Project Manager Name Role Phone Jourdan Hedrick Primary Care Provider [phone] Encounters Date Type Department Care Team Description 06/03/2024 Telephone [facility] Diabetes Endocrine Care at [address] [place] [address] Annetta Kearney DO 05/05/2024 1:00 PM CDT Office Visit [facility] Diabetes Endocrine Care at [address] [place] [address] Annetta Kearney, DO Type 2 diabetes mellitus with hyperglycemia, without [...] Medications fluticasone propionate (FLONASE) 50 mcg/actuation nasal sprayIndicatio ns:Nasal congestion,Ano smia Administer 2 sprays into each nostril daily [...] times a day 4 Active 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 Gender Identity Not on file Sexual Orientation Not on file Last Filed Vital Signs Vital Sign Reading Time Taken Comments Blood Pressure 130/82 05/05/2024 12:56 PM CDT Pulse 84 05/05/2024 12:56 PM CDT Temperature 35.8 C (96.4 F) 11/01/2020 1:01 PM CDT Respiratory Rate 20 06/08/2020 1:39 PM CDT Oxygen Saturation 97% 01/13/2024 9:07 AM SINGE MACHINE OPERATOR Inhaled Oxygen Concentration - - Weight 76.6 [...] - EXTERNAL LAB SCRIBED eGFR in NonAfrican Maltese >=60 - - - EXTERNAL LAB Blood 08/25/2023 [facility] Provider LAB BLOOD ORDERABLES Ashley diaz Result EXTERNAL LAB from Last 3 Months or Most Recently Relevant to Health Maintenance Insurance [facility] AETNA SIGNATURE [facility] Care Teams Pmp Certified Project Manager Relationship Specialty Start Date End Date Jourdan Hedrick PA [address] [place] [address] PCP - General Family Practice 06/08/20
--- OUTSIDE RECORDS SUMMARY | 2024-06-04 18:40 | XMS_ITS | Encounter Summary ---
Author Organization [facility] Healthcare Address [address] [place] [address] Care Team Providers Care Electric Bath Attendant Name Role Phone Jourdan Hedrick Primary Care Provider [phone] Encounter Details Date Type Department Care Team (Late st Contact Info) Description 06/03/2024 Telephone [facility] Diabetes Endocrine Care at [address] [place] [address] Soraya Kearney, [address] [place] [address] [address] [place] [address] Social History Tobacco Use Types Packs/Day Years [...] on file 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 Gender Identity Not on file Sexual Orientation Not on file documented as of this encounter Ordered Prescriptions Prescription Sig Dispense Quantity Refills Last Filled Start Date End Date glimepiride (AMARYL) 2 mg tabletIndications: type 2 diabetes mellitus Take 1 tablet (2 mg total) by mouth daily before breakfast 30 tablet 11 06/03/2024 04/17/202 6 documented in this encounter Miscellaneous Notes * Addendum Note - Soraya Kearney DO - 06/03/2024 3:59 PM CDTAddended by: SORAYA KEARNEY on: 06/03/2024 03:59 PM Modules accepted: Orders * Telephone Encounter - Ivette Oneal MA - 06/03/2024 3:50 PM CDT Patient is not able to take Metformin. She said it is making her sick. She is wanting to know if there is something else she can take because her blood sugar has been running 282. She is also taking Januvia and Jardiance. Please review message and advise. Thank you documented in this encounter Plan of Treatment Not on file documented as of this encounter Visit Diagnoses Not on filedocumented in this encounter Discontinued Medications Medication Sig Discontinue Reason Start Date End Da te metFORMIN XR (GLUCOPHAGE XR) 500 mg 24 hr tablet Take 1 tablet (500 mg total) by mouth daily with breakfast Other 05/05/2024 06/03/2024 documented as of this encounter Care Teams Electric Bath Attendant Relationship Specialty Start Date End Date Jourdan Hedrick PA [address] [place] [address] PCP - General Family Practice 06/08/20 documented as of this encounter
--- OUTSIDE RECORDS SUMMARY | 2024-06-04 18:40 | XMS_ITS | Data Portability ---
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 Plan of Treatment Reminders Order Date Submit Date Provider Last Modified By Organization Details Last Modified Time Details Appointments ANY 15 2024 01:45P Clarisa Hedrick PA-C Not available Not available Not available Lab influenz a virus A + B + SARS-CoV -2 (COVID19 ) Ag panel, rapid IA, upper respirat ory specimen 2024 025 SHAISTA In-Office Order, Internal Use Only DO Not Attach Compendium DO Not Attach Compendium, Do Not Delete/merge, [id number] 04/05/2024 16:18:17 urinalys is, dipstick 2023 024 jnanney In-Office Order, Internal Use Only DO Not Attach Compendium DO Not Attach Compendium, Do Not Delete/merge, [id number] 01/02/2024 15:50:47 HbA1c (hemoglo bin A1c), blood 2023 024 jnanney In-Office Order, Internal Use Only DO Not Attach Compendium DO Not Attach Compendium, Do Not Delete/merge, [id number] 08/20/2023 14:34:42 urinalys is, dipstick 2023 024 jnanney In-Office Order, Internal Use Only DO Not Attach Compendium DO Not Attach Compendium, Do Not Delete/merge, [id number] 08/20/2023 14:34:42 Referral endocrin ology referral 2023 024 yvan Soliman Anp, [facility] , [address], [address], 01/02/2024 15:32:23 endocrin ology referral 2023 024 [place], [address] , [place], [address], 11/04/2023 15:39:06 Procedures None recorded . Surgeries None recorded . Imaging None recorded . Medication Orders Tamiflu 75 mg capsule 2024 025 [facility][id number], [address] [place], [place], [id number], 04/05/2024 16:17:33 sulfamet hoxazole 800 mg-trime thoprim 160 mg tablet 2023 024 [id number], [address] [place], [place], [phone], 04/05/2024 16:01:28 fluconaz ole 200 mg tablet 2023 024 [facility] #[id number], [address] [place], [place], [id number], 08/20/2023 14:24:23 Patient TargetsNo targets recorded. Patient Instructions Encounter Date Encounter Id Patient Instructions Last Modified By Organization Details Last Modified Time 08/20/2023 [id number] learning about type 2 diabetes jnanney Not available 08/20/2023 14:34:42 type 2 diabetes: care instructions jnanney Not available 08/20/2023 14:34:42 vaginal yeast infection: care instructions jnanney Not available 08/20/2023 14:34:42 09/24/2023 [id number] A healthy lifestyle: care instructions jnanney Not available 09/24/2023 16:15:24 learning about type 2 diabetes jnanney Not available 09/24/2023 16:15:24 type 2 diabetes: care instructions jnanney Not available 09/24/2023 16:15:24 12/29/2023 [id number] A healthy lifestyle: care instructions [email or web address] Not available 12/29/2023 11:54:26 Your women's health [...] does not have scents or stain sheets. [email or web address] Not available 12/29/2023 14:17:42 01/02/2024 [id number] flank pain: care instructions jnanney Not available 01/02/2024 15:50:47 A healthy lifestyle: care instructions jnanney Not available 01/02/2024 15:21:35 type 2 diabetes: care instructions jnanney Not available 01/02/2024 15:20:56 04/05/2024 [id number] A healthy lifestyle: care instructions jnanney Not available 04/05/2024 16:17:22 upper respirator y infection (cold): care instructions jnanney Not available 04/05/2024 16:17:22 Reason for Referral Endocrinology Referral for T ype 2 diabetes mellitus Referring Physician: Darrick Hedrick [facility], Encounter Date: 08/20/2023 Endocrinology Referral for T ype 2 diabetes mellitus without complication Referring Physician: Darrick Hedrick [facility], Encounter Date: 01/02/2024 Results Created Date Observation Date Name Description Value Unit Range Abnormal Flag Note LastModifiedBy Organization Detail LastModifiedTime 08/20/19 24 08/20/2023 HbA1c (hemo globi n A1c), blood HbA1c 7.0 Not Available In-Office Order Internal Use Only DO Not Attach Compendium DO Not Attach Compendium, Do Not Delete/merge, [id number] 08/20/2023 14:09:33 08/20/19 24 08/20/2023 urina lysis , dipst ick Leukocytes Negati ve Not Available In-Office Order Internal Use Only DO Not Attach Compendium DO Not Attach Compendium, Do Not Delete/merge, [id number] 08/20/2023 14:09:50 08/20/19 24 08/20/2023 urina lysis , dipst ick Nitrite negati ve Not Available In-Office Order Internal Use Only DO Not Attach Compendium DO Not Attach Compendium, Do Not Delete/merge, [id number] 08/20/2023 14:09:50 08/20/19 24 08/20/2023 urina lysis , dipst ick Urobilinogen .2 [...] 08/20/2023 urina lysis , dipst ick Specific [place] 1.010 Not Available In-Off ice Order Internal [...] DO Not Attach Compendium, Do Not Delete/merge, [id number] 08/20/2023 14:09:50 08/20/19 24 08/20/2023 urina lysis , dipst ick Color Yellow Not Available In-Office Order Internal Use Only DO Not Attach Compendium DO Not Attach Compendium, Do Not Delete/merge, 08/20/2023 14:09:50 01/02/20 24 01/02/2024 urina lysis [...] DO Not Attach Compendium, Do Not Delete/merge, [id number] 01/02/2024 15:03:07 01/02/20 24 01/02/2024 urina lysis , dipst ick Specific [place] 1.015 Not Available In-Off ice Order Internal Use Only DO Not Attach Compendium DO Not Attach Compendium, Do Not Delete/merge, [id number] 01/02/2024 15:03:07 01/02/20 24 01/02/2024 urina lysis , dipst ick Ketone Negati ve Not Available In-Office Order Internal Use Only DO Not Attach Compendium DO Not Attach Compendium, Do Not Delete/merge, [id number] 01/02/2024 15:03:07 01/02/20 24 01/02/2024 urina lysis , dipst ick Bilirubin Negati ve Not Available In-Office Order Internal Use Only DO Not Attach Compendium DO Not Attach Compendium, Do Not Delete/merge, [id number] 01/02/2024 15:03:07 01/02/20 24 01/02/2024 urina lysis , dipst ick Glucose 1000 Not Available In-Office Order Internal Use Only DO Not Attach Compendium DO Not Attach Compendium, Do Not Delete/merge, [id number] 01/02/2024 15:03:07 01/02/20 24 01/02/2024 urina lysis , dipst ick Appearance Clear Not Available In-Offi ce Order Internal Use Only DO Not Attach Compendium DO Not Attach Compendium, Do Not Delete/merge, [id number] 01/02/2024 15:03:07 01/02/20 24 01/02/2024 urina lysis , dipst ick Color Yellow Not Available In-Office Order Internal Use Only DO Not Attach Compendium DO Not Attach Compendium, Do Not Delete/merge, [id number] 01/02/2024 15:03:07 02/03/20 24 02/03/2024 Hemog lobin A1c/H emogl obin. total in Blood hemoglobin A1C, POC 7 % low: 4%high : 5.6% Hemog lobin A1C, POC 7.0 4.0 - 5.6 % Not Available Not Available 04/05/2024 15:26:42 04/01/19 25 04/01/2024 CBC W Auto Diffe renti al panel - Blood leukocytes [#/volume] in blood by automated count 5.21 text: 4.00 - 12.00 10(3)/ mcL WBC 5.21 4.00 - 12.00 10(3) /mcL 04/01 8:41 PM DIRECTOR OF GLOBAL SALES [facility] Not Available Not Available 04/05/2024 15:26:38 04/01/19 25 04/01/2024 CBC W Auto Diffe renti al panel - Blood erythrocytes [#/volume] in blood by automated count 4.61 text: 3.80 - 5.30 10(6)/ mcL RBC 4.61 3.80 - 5.30 10(6) /mcL 04/01 8:41 PM DIRECTOR OF GLOBAL SALES [facility] Not Available Not Available 04/05/2024 15:26:38 04/01/19 25 04/01/2024 CBC W Auto Diffe renti al panel - Blood hemoglobin [mass/volume ] in blood 14.2 g/dL low: 12g/dL high: 15.8g/ dL HEMOG LOBIN (HGB) 14.2 12.0 - 15.8 g/dL 04/01 8:41 PM DIRECTOR OF GLOBAL SALES [facility] Not Available Not Available 04/05/2024 15:26:38 04/01/19 25 04/01/2024 CBC W Auto Diffe renti al panel - Blood hematocrit [volume fraction] of blood by automated count 44.6 % low: 36%hig h: 47% HEMAT OCRIT (HCT) 44.6 36.0 - 47.0 % 04/01 8:41 PM DIRECTOR OF GLOBAL SALES [facility] Not Available Not Available 04/05/2024 15:26:38 04/01/19 25 04/01/2024 CBC W Auto Diffe renti al panel - Blood MCV [entitic volume] by automated count 96.7 fL low: 82fLhi gh: 96fL high MCV 96.7 (H) 82.0 - 96.0 fL 04/01 8:41 PM DIRECTOR OF GLOBAL SALES [facility] Not Available Not Available 04/05/2024 15:26:38 04/01/19 25 04/01/2024 CBC W Auto Diffe renti al panel - Blood MCH [entitic mass] by automated count 30.8 pg low: 26pghi gh: 34pg MCH 30.8 26.0 - 34.0 pg 04/01 8:41 PM DIRECTOR OF GLOBAL SALES [facility] [employer] [facility] Not Available Not Available 04/05/2024 15:26:38 04/01/19 25 04/01/2024 CBC W Auto Diffe renti al panel - Blood MCHC [mass/volume ] by automated count 31.8 g/dL low: 31g/dL high: 36g/dL MCHC 31.8 31.0 - 36.0 g/dL 04/01 8:41 PM [facility] Not Available Not Available 04/05/2024 15:26:38 04/01/19 25 04/01/2024 CBC W Auto Diffe renti al panel - Blood platelets [#/volume] in blood 155 text: 140 - 440 10(3)/ mcL PLATE LET COUNT 155 140 - 440 10(3) /mcL 04/01 8:41 PM [facility] [employer] LAB Not Available Not Available 04/05/2024 15:26:38 04/01/19 25 04/01/2024 CBC W Auto Diffe renti al panel - Blood erythrocyte distribution width [ratio] by automated count 12.5 % low: 11.8%h igh: 15.5% RDW 12.5 11.8 - 15.5 % 04/01 8:41 PM [facility] Not Available Not Available 04/05/2024 15:26:38 04/01/19 25 04/01/2024 CBC W Auto Diffe renti al panel - Blood platelet mean volume [entitic volume] in blood by automated count 9.6 fL low: 9.7fLh igh: 12.4fL low MPV 9.6 (L) 9.7 - 12.4 fL 04/01 8:41 PM [facility] Not Available Not Available 04/05/2024 15:26:38 04/01/19 25 04/01/2024 CBC W Auto Diffe renti al panel - Blood neutrophils/ 100 leukocytes in blood by automated count 83.1 % low: 47%hig h: 73% high NEUTR OPHIL S 83.1 (H) 47.0 - 73.0 % 04/01 8:41 PM DIRECTOR OF GLOBAL SALES [facility] Not Available Not Available 04/05/2024 15:26:38 04/01/19 25 04/01/2024 CBC W Auto Diffe renti al panel - Blood lymphocytes/ 100 leukocytes in blood by automated count 9.8 % low: 18%hig h: 42% low LYMPH OCYTE S 9.8 (L) 18.0 - 42.0 % 04/01 8:41 PM DIRECTOR OF GLOBAL SALES [facility] [employer] [facility] Not Available Not Available 04/05/2024 15:26:38 04/01/19 25 04/01/2024 CBC W Auto Diffe renti al panel - Blood monocytes/10 0 leukocytes in blood by automated count 6.7 % low: 4%high : 12% MONOC YTES 6.7 4.0 - 12.0 % 04/01 8:41 PM DIRECTOR OF GLOBAL SALES [facility] [employer] [facility] Not Available Not Available 04/05/2024 15:26:38 04/01/19 25 04/01/2024 CBC W Auto Diffe renti al panel - Blood eosinophils/ 100 leukocytes in blood by automated count 0.2 % low: 0%high : 5% EOSIN OPHIL S 0.2 0.0 - 5.0 % 04/01 8:41 PM DIRECTOR OF GLOBAL SALES [facility] [employer] [facility] Not Available Not Available 04/05/2024 15:26:38 04/01/19 25 04/01/2024 CBC W Auto Diffe renti al panel - Blood basophils/10 0 leukocytes in blood by automated count 0.2 % low: 0%high : 1% BASOP HILS 0.2 0.0 - 1.0 % 04/01 8:41 PM DIRECTOR OF GLOBAL SALES [facility] Not Available Not Available 04/05/2024 15:26:38 04/01/19 25 04/01/2024 CBC W Auto Diffe renti al panel - Blood neutrophils [#/volume] in blood by automated count 4.33 text: 1.60 - 7.70 10(3)/ mcL ABSOL IONE NEUTR OPHIL S 4.33 1.60 - 7.70 10(3) /mcL 04/01 8:41 PM DIRECTOR OF GLOBAL SALES [facility] [employer] [facility] Not Available Not Available 04/05/2024 15:26:38 04/01/19 25 04/01/2024 CBC W Auto Diffe renti al panel - Blood lymphocytes [#/volume] in blood by automated count 0.51 text: 1.30 - 3.20 10(3)/ mcL low ABSOL IONE LYMPH OCYTE S 0.51 (L) 1.30 - 3.20 10(3) /mcL 04/01 8:41 PM DIRECTOR OF GLOBAL SALES [facility] [employer] [facility] Not Available Not Available 04/05/2024 15:26:38 04/01/19 25 04/01/2024 CBC W Auto Diffe renti al panel - Blood monocytes [#/volume] in blood by automated count 0.35 text: 0.20 - 1.00 10(3)/ mcL ABSOL IONE MONOC YTES 0.35 0.20 - 1.00 10(3) /mcL 04/01 8:41 PM DIRECT[facility] OF GLOBAL SALES [facility] Not Available Not Available 04/05/2024 15:26:38 04/01/19 25 04/01/2024 CBC W Auto Diffe renti al panel - Blood eosinophils [#/volume] in blood by automated count 0.01 text: 0.00 - 0.40 10(3)/ mcL ABSOL IONE EOSIN OPHIL 0.01 0.00 - 0.40 10(3) /mcL 04/01 8:41 PM DIRECTOR OF GLOBAL SALES [facility] Not Available Not Available 04/05/2024 15:26:38 04/01/19 25 04/01/2024 CBC W Auto Diffe renti al panel - Blood basophils [#/volume] in blood by automated count 0.01 text: 0.00 - 0.10 10(3)/ mcL ABSOL IONE BASLONG HILS 0.01 0.00 - 0.10 10(3) /mcL 04/01 8:41 PM [facility] Not Available Not Available 04/05/2024 15:26:38 04/01/19 25 04/01/2024 CBC W Auto Diffe carlyn estes panel - Blood nucleated erythrocytes /100 leukocytes [ratio] in blood 0 NRBC PER 100 WBC 0 04/01 8:41 PM DIRECTOR OF GLOBAL SALES [facility] Not Available Not Available 04/05/2024 15:26:38 04/01/19 25 04/01/2024 CBC W Auto Diffe carlyn estes panel - Blood interpretati on and review of laboratory results Abnorm al Not Available Not Available 15:26:38 04/01/19 25 04/01/2024 Basic metab olic 1999 panel - Serum or Plasm a sodium [moles/volum e] in serum or plasma 140 mmol/ L low: 136mmo l/Lhig h: 145mmo l/L SODIU M 140 136 - 145 mmol/ L 04/01 9:01 PM [facility] Not Available Not Available 04/05/2024 15:26:38 04/01/19 25 04/01/2024 Basic metab olic 1999 panel - Serum or Plasm a potassium [moles/volum e] in serum or plasma 3.9 mmol/ L low: 3.5mmo l/Lhig h: 5.1mmo l/L POTAS SIUM 3.9 3.5 - 5.1 mmol/ L 04/01 9:01 PM DIRECTOR OF GLOBAL SALES [facility] Not Available Not Available 04/05/2024 15:26:38 04/01/19 25 04/01/2024 Basic metab olic 1999 panel - Serum or Plasm a chloride [moles/volum e] in serum or plasma 104 mmol/ L low: 98mmol /Lhigh : 107mmo l/L CHLOR CARLEE 104 98 - 107 mmol/ L 02/13 /2025 9:01 PM [facility] Not Available Not Available 04/05/2024 15:26:38 04/01/19 25 04/01/2024 Basic metab olic 1999 panel - Serum or Plasm a carbon dioxide, total [moles/volum e] in serum or plasma 28 mmol/ L low: 22mmol /Lhigh : 30mmol /L CO2, VENOU S 28 22 - 30 mmol/ L 04/01 9:01 PM [facility] Not Available Not Available 04/05/2024 15:26:38 04/01/19 25 04/01/2024 Basic metab olic 1999 panel - Serum or Plasm a anion gap in serum or plasma 11.9 mmol/ L high: 18mmol /L ANION GAP 11.9 <18.0 mmol/ L 04/01 9:01 PM [facility] Not Available Not Available 04/05/2024 15:26:38 04/01/19 25 04/01/2024 Basic metab olic 1999 panel - Serum or Plasm a glucose [mass/volume ] in serum or plasma 167 mg/dL low: 70mg/d Lhigh: 99mg/d L high GLUCO SE 167 (H) 70 - 99 mg/dL 04/01 9:01 PM [facility] Not Available Not Available 04/05/2024 15:26:38 04/01/19 25 04/01/2024 Basic metab olic 1999 panel - Serum or Plasm a urea nitrogen [mass/volume ] in serum or plasma 10 mg/dL low: 5mg/dL high: 18mg/d L BUN 10 5 - 18 mg/dL 04/01 9:01 PM [facility] Not Available Not Available 04/05/2024 15:26:38 04/01/19 25 04/01/2024 Basic metab olic 2000 panel - Serum or Plasm a creatinine [mass/volume ] in serum or plasma 0.85 mg/dL low: 0.6mg/ dLhigh : 1mg/dL CREAT ININE , BLOOD 0.85 0.60 - 1.00 mg/dL 04/01 9:01 PM [facility] [employer] [facility] Not Available Not Available 04/05/2024 15:26:38 04/01/19 25 04/01/2024 Basic metab olic 2000 panel - Serum or Plasm a urea nitrogen/cre atinine [mass ratio] in serum or plasma 12 text: 12 - 20 ratio BUN/C REATI NINE RATIO 12 12 - 20 ratio 04/01 9:01 PM [facility] [employer] [facility] Not Available Not Available 04/05/2024 15:26:38 04/01/19 25 04/01/2024 Basic metab olic 1999 panel - Serum or Plasm a calcium [mass/volume ] in serum or plasma 8.7 mg/dL low: 8.7mg/ dLhigh : 10.5mg /dL CALCI UM 8.7 8.7 - 10.5 mg/dL 04/01 9:01 PM [facility] [employer] [facility] LAB Not Available Not Available 04/05/2024 15:26:38 04/01/19 25 04/01/2024 Basic metab olic 1999 panel - Serum or Plasm a glomerular filtration rate/1.73 sq M.predicted among non-blacks [volume rate/area] in serum, plasma or blood by creatinine-b ased formula (MDRD) low: 60 GFR, ESTIM ATED >60 >=60 04/01 9:01 PM [facility] [employer] [facility] Not Available Not Available 04/05/2024 15:26:38 04/01/19 25 04/01/2024 Basic metab olic 2000 panel - Serum or Plasm a glomerular filtration rate/1.73 sq M.predicted among blacks [volume rate/area] in serum, plasma or blood by creatinine-b ased formula (MDRD) low: 60 GFR, EST. AFRIC AN >60 >=60 04/01 9:01 PM [facility] [employer] [facility] Not Available Not Available 04/05/2024 15:26:38 04/01/19 25 04/01/2024 Basic metab olic 2000 panel - Serum or Plasm a glomerular filtration rate/1.73 sq M.predicted among non-blacks [volume rate/area] in serum, plasma or blood by creatinine-b ased formula (MDRD) low: 60 GFR, EST. NONAF RICAN >60 >=60 04/01 9:01 PM DIRECTOR OF GLOBAL SALES [facility] [employer] CD Diagnostics[employer] R LAB Not Available Not Available 04/05/2024 15:26:38 04/01/19 25 04/01/2024 Basic metab olic 1999 panel - Serum or Plasm a interpretati [...] (A) Negat natalee, Error 04/01 8:05 PM DIRECTOR OF GLOBAL SALES [facility] [employer] [facility]ostics[facility] R LAB Not Available Not Available 04/05/2024 [...] Negat natalee Negat natalee 04/01 8:05 PM DIRECTOR OF GLOBAL SALES [facility] [employer] [facility] LAB Not Available Not [...] Negat natalee Negat natalee 04/01 8:05 PM DIRECT[facility] OF GLOBAL SALES [facility] [facility] Not Available Not Available 04/05/2024 [...] is Not Detec kyaw) 04/01 8:05 PM DIRECTOR OF GLOBAL SALES [facility] [employer] [facility] LAB Not Available Not Available 04/05/2024 [...] DO Not Attach Compendium, Do Not Delete/merge, [id number] 04/05/2024 16:04:54 04/05/19 25 04/05/2024 influ prashanth virus A + B + SARS- CoV-2 (COVI D19) Ag panel , rapid IA, upper respi rator y speci men Flu B negati ve Not Available In-Office Order Internal Use Only DO Not Attach Compendium DO Not Attach Compendium, Do Not Delete/merge, [id number] 04/05/2024 16:04:54 04/05/19 25 04/05/2024 influ prashanth virus A + B + SARS- CoV-2 (COVI D19) Ag panel , rapid IA, upper respi rator y speci men Rapid SARS CoV 2 Ag, QL IA, respiratory specimen negati ve Not Available In-Office Order Internal Use Only DO Not Attach Compendium DO Not Attach Compendium, Do Not Delete/merge, [id number] 04/05/2024 16:04:54 05/06/1905/05/2024 Hemog lobin A1c/H emogl obin. total in Blood hemoglobin A1C, POC 7.2 % low: 4%high : 5.6% Hemog lobin A1C, POC 7.2 4.0 - 5.6 % Not Available Not Available 05/05/2024 15:03:42 Result Notes None recorded. Problems Name Problem SNOMED Code Status Onset Date Resolution Date Notes Provider Name and Address Organization Details Recorded Time Fibromya lgia 953081739 Active 2017 ECTOR Perez, [place] - [facility] 1 16:38:13 Mixed anxiety and depressi ve disorder 358753187 Active 2018 declined med -doing fine without med ECTOR [place], [place] [facility] 1 16:38:13 Type 2 diabetes mellitus 64026227 Active 2018 ECTOR Perze, [place] - [facility] 1 16:38:13 Obesity 508578993 Active 2011 ECTOR [place] [facility] 0 15:21:56 Tension- type headache 099376219 Active 2013 ECTOR [place] [facility] 0 15:21:56 Hyperten sive disorder 10762001 Active 2013 ECTOR [place] [facility] 0 15:21:56 Obstruct natalee sleep apnea of adult 20627711660 03 Active 2011 ECTOR [place] [facility] 0 15:21:56 Carcinom a of endocerv ix 689817329 Active 2013 Tammy Park MA null, [place] - [facility] 0 15:21:56 Hypersom supriya with sleep apnea 40034385 Active 2011 Tammy Park [place] null, [place] [facility] 0 15:21:56 Pain in throat 917872653 Completed 03/13/2016 Pushpa Olivera MD Attn: Shashank yoo,[address] [place], [address], [place] [facility] 7 15:35:19 Acute upper respirat ory infectio n 89330808 Completed 03/13/2016 Pushpa Olivera MD Attn: Shashank yoo,[address] [place], [address], [place] [facility] 7 15:35:26 Acute bronchit is 88410349 Completed 03/13/2016 Pushpa Olivera MD Attn: Shashank yoo,[address] [place], [address], [place] [facility] 7 15:35:16 Asthma 580747770 Completed 05/27/2017 Pushpa Olivera MD Attn: Shashank yoo,[address] [place], [address], [place] [facility] 8 12:08:25 Pain in left lower limb 306686767 Completed 03/13/2016 Pushpa Olivera MD Attn: Shashank yoo,[address] [place], [address], [place] [facility] 7 15:35:31 Pain in left arm 685505891 Completed 03/13/2016 Pushpa Olivera MD Attn: Shashank yoo,[address] [place], [address], [place] [facility] 7 15:35:23 Chronic cough 00556009 Completed 05/27/2017 Pushpa Olivera MD Attn: Shashank yoo,[address] [place], [address], [place] [facility] 8 12:08:30 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 Procedures Surgical History Date Name Laterality Status Provider Name and Address Organization Details Recorded Time 4 Date of Last Pap Smear completed Leta Walter MA [facility] 12/29/2023 11:15:56 2 Date of Last Mammogram completed Nicole Melendez MA [facility] 01/23/2022 14:47:37 Caesarean Section completed Monika Max MA [facility] 04/10/2015 16:50:47 Dilation and Curettage completed Monika Max MA [facility] 04/10/2015 16:50:47 LEEP completed Monikadianne Max MA [facility] 04/10/2015 16:50:47 Imaging Results None recorded. Procedure Notes None recorded. Medical Equipment None Reported. Allergies Allergen ID Allergen Name Allergen Category Reaction Reaction Severity Criticality Documentation Date Start Date Code Code System Note Provider Name and Address Organization Details Recorded Time 858378 Cipro medicatio n rash moderate Not available 03/26/2019 13715 3 RxNorm Not Available Not Available Not Available 069512 Iodinated contrast media (substanc e) medicatio n Not available Not available Not available 12/29/2019 37607 2004 SNOMED Not Available Not Available Not Available 545727 metronida zole medicatio n other mild Not available 04/25/20202019 6922 RxNorm Not Available Not Available Not Available 081768 metformin medicatio n abdominal pain diarrhea gi bleed Not available Not available Not available Not available 2022 6809 RxNorm Not Available Not Available Not Available 22131 Product containin g penicilli n (product) medicatio n rash severe Not available 04/10/2015 83858 8001 SNOMED Not Available Not Available Not Available 84343 erythromy ariel medicatio n other Not available Not available 04/10/2015 4053 RxNorm Not Available Not Available Not Available Medications Name Sig Start Date Stop Date Status Note LastModified by Organization Details LastModified Time senna s 8.6-50mg tablets TAKE 1-2 PILLS NIGHTLY FOR CONSTIPA TION MANAGEME NT active Not Available Not Available No t Available magnesium citrate soln grape 296ml TAKE 150ML BY MOUTH TWICE DAILY NEEDED FOR CONSTIPA TION 04/05 completed Not Available Not Available Not Available wal-zyr d tablets TK 1 T PO [...] Updated DateTime 4 162.56 cm 28.7 kg/m2 36603.0 3 g 71 /min 99 % 99 % 120 mm[Hg] 82 mm[Hg] Leta Walter MA [facility] 4 14:09:23 Date Recorded Body height Body mass index (BMI) Body weight Oxygen saturation Oxygen saturation in Arterial blood by Pulse oximetry Heart rate Systolic blood pressure Diastolic blood pressure Provider Name and Address Organization Details Last Updated DateTime 4 162.56 cm 28.5 kg/m2 34001.0 3 g 96 % 96 % 81 /min 106 mm[Hg] 64 mm[Hg] ECTOR Schafer [facility] 4 15:40:56 Date Recorded Body height Body mass index (BMI) Body weight Heart rate Systolic blood pressure Diastolic blood pressure Provider Name and Address Organization Details Last Updated DateTime 4 162.56 cm 28.3 kg/m2 17326.7 4 g 77 /min 116 mm[Hg] 73 mm[Hg] Leta Walter MA [facility] 4 11:16:52 Date Recorded Body height Body mass index (BMI) Body weight Oxygen saturation Oxygen saturation in Arterial blood by Pulse oximetry Heart rate Systolic blood pressure Diastolic blood pressure Provider Name and Address Organization Details Last Updated DateTime 4 162.56 cm 28.3 kg/m2 66323.4 4 g 97 % 97 % 96 /min 118 mm[Hg] 84 mm[Hg] Leta Walter MA [facility] 4 14:53:05 Date Recorded Body height Body mass index (BMI) Body weight Oxygen saturation Oxygen saturation in Arterial blood by Pulse oximetry Heart rate Respiratory rate Body temperature Systolic blood pressure Diastolic blood pressure Provider Name and Address Organization Details Last Updated DateTime 5 162.56 cm 27.8 kg/m2 05972.6 8 g 97 % 97 % 82 /min 16 /min 98.5 [degF] 126 mm[Hg] 82 mm[Hg] Sejal Daniel MA [facility] 5 16:03:13 Social History Question Answer Notes LastModified by Organizat ion Details LastModified Time Tobacco Smoking Status Former Smoker Quit - [address] [facility] 03/13/2016 15:21:50 What Is Your Level Of Alcohol Consumption? None Information not available 03/13/2016 Are You Blind Or Do You Have Difficulty Seeing? Yes [email or web address] Information not available 12/03/2021 Is Blood Transfusion Acceptable In An Emergency? Yes [facility] Information not available 04/29/2016 What Is Your [...] available 07/28/2019 Are You Currently Employed? No [email or web address] Information not available 10/24/2020 Are You Deaf [...] Anxious, Or Unable To Sleep At Night)? [id number] [email or web address] Information not available 10/24/2020 Do You Use [...] Other Forms Of Tobacco Or Nicotine? No [email or web address] Information not available 10/24/2020 Sex: Female Functional [...] N Atrial Fibrillation N Breast Cancer N Lung Disease N Depression N COPD N Blood Clots Y Breast Problem N Anesthesia Complications N Headaches/Migraines N Anxiety Disorder Y Muscle, Joint, or Bone Problems N Infertility N Polyps N Acid Reflux (GERD) Y Cancer Y Stroke N Endometriosis N High Cholesterol N Liver Disease N Headaches N Thyroid Problems N Kidney or Bladder Problems N GI Problems N Acne N Eating Disorder N Skin Problems N Anemia N Heart Attack (MD) N Diabetes N Ovarian Cancer N Blood Transfusions N Seizures/Epilepsy Y Abuse/Domestic Violence N Asthma Y Allergies N Hepatitis N Heart Disease N Pre-Eclampsia N Heart Failure N Osteoporosis N Gynecological History Statement/Question Response Abnormal Pap [...] completed TISHA ANGEL NP Attn: Accounting,[address] [place], [address], [facility] 12/29/2023 14:18:33 Past Encounters Encounter ID Performer Location Encounter Start Date Encounter Closed Date Diagnosis/Indication Diagnosis SNOMED-CT Code Diagnosis ICD10 Code Diagnosis Note [id number] Mitchel Rodriguez (Adult Med) [address] [place] [address] 04/10/2015 16:38:16 04/10/2015 17:58:46 Pain in throat 340056499 R07.0 Rapid strep test is negative. Salt water gargling 4 times daily Acute uppe r respiratory infection 81013094 J06.9 Advised patient to take otc Mucinex,Al legra D . Drinks plenty of oral fluids. Salt water gargling 4 times daily. [id number] Mitchel Rodriguez (Adult Med) [address] [place] [address] 04/13/2015 14:25:18 04/17/2015 15:41:17 Acute bronchitis 93330528 J20.9 Contiue Albuterol hfa 2 puffs q 6h prn. Azithromyc in for 5 days.Patie nt said she has no allergy to Azithromyc in. Medrol 4 m dose pack as directed. Follow up as needed. [id number] MD Michael Cruz (Adult Med) [address] [place] [address] 04/21/2015 11:54:25 04/21/2015 17:23:11 Asthma 537378948 J45.30 As above Pain in le ft lower limb 529041786 M79.605 pt had superficia l venous thrombosis on UE during chemo per pt check doppler to r/o DVT Pain in left arm 5812662 00 M79.602 Chronic cough 59802578 R 05 Possibly due to Asthma vs postnasal drip pt is on PPI for GERD Add Q joe -sample given to pt -instructe d pt to rinse her mouth after use the inhaler Tessalon leena for cough cxr at ER-neg per pt consider CT chest if problem continues ( h/o cervical ca -s/p chemo and radiation) [id number] [facility] [address] [place] [address] 05/23/2015 12:20:54 05/24/2015 10:17:29 Adult health examination 514517105 Z00.00 Chronic cough 18104557 R 05 Possibly due to Asthma pt is on PPI for GERD cxr at ER-neg [id number] [facility] [address] [place] [address] 03/13/2016 15:08:28 03/13/2016 16:17:58 Eczema 18548580 L30.9 keep area clean and dty [id number] [facility] [address] [place] [address] 04/29/2016 10:16:13 05/22/2016 09:40:57 Suprapubic pain 230798742 R10.33 UA negative, dwp. Vaginal culture sent. Fatigue 49356650 R53.83 Pt. with c/o fatigue. Will check labs. Pt. to call for results in one week. [id number] [facility] [address] [place] [address] 09/20/2016 10:53:45 09/24/2016 11:03:59 Acute urinary tract infection 292336999 N39.0 increase fluid Fatigue 69808365 R53.83 with h/o chemoradia iton for cervical cancerchec k labs Chest pain 48859169 R07. 9 possibly muscle spasmcheck ekgpt to go to ER if chest pain gets worse [id number] Dora Rodriguez (TRACK REPAIR LABORER) [address] [place] [address] 09/24/2016 15:28:14 12/06/2016 13:56:18 Pruritus of vulva 75754930 L29.2 Probable yeast infection given history even though exam wnl. Will treat with diflucan. Culture sent. [id number] MD Joan Cruz[facility] (Adult Med) [address] [facility] [place] [address] 10/01/2016 14:27:44 10/01/2016 15:57:23 Acute urinary tract infection 353304118 N39.0 increase fluidpt to complete Bactrim Overweight 635778710 E66 .3 [id number] Dora Rodriguez (TRACK REPAIR LABORER) [address] [place] [address] 10/10/2016 10:59:29 10/10/2016 17:23:54 Dysuria 02054578 R30.0 UA negative. Spec. grav was 1030. Pt. advised to increase water intake to 96 oz. daily. Microscopic hematuria [address] done 09/23/16 was normal, no stones, normal bladder. Had UTI, was treated. [id number] Dora Rodriguez (TRACK REPAIR LABORER) [address] [place] [address] 05/19/2017 15:35:51 05/20/2017 12:12:48 Candidal vulvovaginitis 08696426 B37.3 Diagnosis d/w pt. Rx sent to pharmacy. Lashay monge discussed. Pruritus of vulva 214114 00 L29.2 Probable yeast infection given history even though exam wnl. Will treat with diflucan. Culture sent.Pt too uncomforta ble to stand for long periods of time s/p bladder surgery 3 weeks ago. Time off work extended. [id number] [facility] [address] [place] [address] 05/27/2017 10:47:41 05/27/2017 17:51:36 Mixed anxiety and depressive disorder 912267785 F41.8 pt wants to try counsellin g first Fibromyalgia 685575169 M 79.7 with depression /hot flashespt is reluctant to try med , but eventually agreed to try gabapentin check labs to r/o infamatory arthritis [id number] MD Michael Cruz (Adult Med) [address] [place] [address] 07/17/2017 14:45:58 07/18/2017 10:30:59 Fibromyalgia 902213555 M79.7 with depression /hot flashespt is reluctant to try medpt stopped gabapentin labs to r/o infamatory arthritis -negpt is seeing pT Ankle pain 404889386 M25 .571 pt is taking otc nSAIDevalu ated in ER yesterday and on brace [id number] MD Michael Cruz (Adult Med) [address] [place] [address] 08/15/2017 11:24:55 08/15/2017 15:40:19 Abdominal pain 12960473 R10.9 etiology -not clearpt has h/o cervical ca and seeing onco who had CT done in the past per ptcheck CT abd/pelvis Right uppe r quadrant pain 930028320 R10.11 meal related paincheck us of gallbladde r [id number] Dora Rodriguez (TRACK REPAIR LABORER) [address] [place] [address] 10/08/2017 10:43:14 10/09/2017 15:59:11 Suprapubic pain 002439895 R10.33 UA positive, dwp. See below Urinary tr act infectious disease 72647413 N39.0 Diagnosis d/w pt. Rx sent to pharmacy. Instructio ns discussed. [id number] MD Michael Cruz (Adult Med) [address] [place] [address] 02/24/2018 09:03:25 02/27/2018 13:06:43 Mixed anxiety and depressive disorder 467262589 F41.8 pt showed lots of reluctant to try meds and finally agreed to try cymbalta at low dose and willing to see therapist as well Fibromyalgia M 79.7 with depression /hot flashespt is reluctant to try medpt tried gabapentin in the past and stopped it on her ownlabs to r/o infamatory arthritis -neg Rib pain 703025776 R07.8 1 with h/o fall and point tenderness check xray Low back pain 381559854 M54.5 with h/o fall Neck pain 81378890 M54.2 heat therapymob ic prn Malignant tumor of cervix 886496793 C53.9 pt is seeing specialist s in [place] -has f/u in 03/10/18 Hyperlipid emia screening 882454133 Z13.322 [id number] [facility] [address] [place] [address] 03/10/2019 09:08:57 03/11/2019 12:16:59 Gastroesophageal reflux disease without esophagitis 722531166 K21.9 stable on omeprazole Mixed anxi ety and depressive disorder 666157120 F41.8 pt showed lots of reluctant to try meds-pt is doing fine without med at present time . Fibromyalgia 439569459 M 79.7 pt is reluctant to try medpt tried gabapentin /cymbalta in the past and stopped it on her ownlabs to r/o infamatory arthritis -neg Type 2 pratima betes mellitus 13955636 E11.9 pt declined to take medpt to follow diabetic diet History of diverticulitis 0360297528 59259 Z87.19 s/p rxpt has apt to see GI per pt [id number] [facility] [address] [place] [address] 03/26/2019 12:00:36 03/29/2019 08:06:11 Eruption 595588021 R21 resolved. Abdominal pain 54264021 R10.9 pt was rxed with cipro /flagyl .Had rash with cipro -pt denied abdominal pain at present time . Low back pain 651618764 M54.5 with h/o fall in 02/04 per pt [id number] [facility] [address] [facility] [place] [address] 07/28/2019 08:05:58 07/29/2019 13:54:46 Type 2 diabetes mellitus 19614981 E11.9 pt declined to take medpt to follow diabetic diet [id number] [facility] [address] [place] [address] 11/24/2019 08:27:07 11/26/2019 17:02:04 Type 2 diabetes mellitus 25314687 E11.9 pt declined to take med including statin.pt to follow diabetic diet.pt to go for eye exam . [id number] MD Michael Cruz (Adult Med) [address] [place] [address] 11/25/2019 08:11:33 11/26/2019 17:28:09 Upper respiratory infection 97630752 J06.9 keep good hydration/ salt water gargle .pt to go for covid testing . [id number] CLEMENTINE Kelley [address] [place] [address] 11/25/2019 09:35:00 11/30/2019 11:16:54 Viral screening 043513486 Z11.59 D/w pt the current pandemic of COVID-19 and call for social isolation in order to blunt the curve and minimize risk and spread. Encouraged patient and family to take restrictio ns seriously. They have verbalized understand ing of such. Viral syndrome 079433698 B34.9 [id number] Darrick Hedrick PA-C [facility] [address] [place] [address] 12/29/2019 10:06:19 12/29/2019 12:21:59 Acute maxillary sinusitis 26956948 J01.01 [id number] Darrick Hedrick PA-C [facility] [address] [place] [address] 01/04/2020 15:27:01 01/04/2020 16:20:29 Candidiasis of mouth 01848256 B37.0 [id number] ALEIDA Soto [facility] [address] [place] [address] 01/27/2020 09:36:47 01/27/2020 15:48:56 Urinary tract infectious disease 31646413 N10 [id number] ALEIDA Soto [facility] [address] [place] [address] 04/18/2020 09:33:32 04/18/2020 15:31:30 Gastroesophageal reflux disease without esophagitis 535385871 K21.9 Acute urin jatin tract infection 461898366 N39.0 Peripheral neuropathic pain 358002670 M79.2 [id number] Darrick Hedrick PA-C [facility] [address] [place] [address] 04/25/2020 09:40:20 04/25/2020 17:14:28 Taste sense altered 469234549 R43.2 Sense of s cole altered 282849370 R43.1 [id number] CLEMENTINE Kelley [address] [place] [address] 04/27/2020 08:59:42 04/28/2020 08:36:42 Viral screening 122449601 Z11.59 D/w pt the current pandemic of COVID-19 and call for social isolation in order to blunt the curve and minimize risk and spread. Encouraged patient and family to take restrictio ns seriously. They have verbalized understand ing of such. Viral syndrome 902536931 B34.9 [id number] Darrick Hedrick PA-C [facility] [address] [place] [address] 09/13/2020 15:22:45 09/13/2020 16:36:09 Dysuria 89818977 R30.9 Hyperglycemia 23009795 R 73.09 [id number] Dora Rodriguez (TRACK REPAIR LABORER) [address] [place] [address] 10/24/2020 15:19:17 10/31/2020 08:49:58 Abnormal vaginal bleeding 307082378 N93.9 Normal appearing vagina. No lesions. Culture obtained. Will call with results.Po ssibility of bleeding from bladder or rectum d/w pt. Since UA negative with PCP and CTA wanting her to do colon testing, pt. encouraged to follow-up with colon testing. [id number] Darrick Hedrick PA-C [facility] [address] [place] [address] 02/13/2021 14:32:12 02/13/2021 15:06:51 Type 2 diabetes mellitus 18278467 E11.9 Obesity 156576753 E66.3 [id number] Darrick Hedrick PA-C [facility] [address] [place] [address] 05/28/2021 14:30:09 05/28/2021 15:13:07 Gastroesophageal reflux disease without esophagitis 429161870 K21.9 Uncontroll ed type 2 diabetes mellitus 745832332 E11.65 Mixed hyperlipidemia 267 376811 E78.2 [id number] Darrick Hedrick PA-C [facility] [address] [place] [address] 07/24/2021 17:31:08 07/24/2021 17:48:53 Calculus of kidney and ureter 287815620 N20.2 [id number] Darrick Hedrick PA-C [facility] [address] [place] [address] 08/31/2021 15:09:31 08/31/2021 15:57:10 Overweight 516179451 E66.3 Morbid obesity 858132583 E66.01 Type 2 pratima betes mellitus 31600288 E11.9 [id number] Darrick Hedrick PA-C [facility] [address] [place] [address] 12/03/2021 14:51:59 12/03/2021 15:56:08 High hemoglobin A1c level 427655037 R73.09 [id number] Darrick Hedrick PA-C [facility] [address] [place] [address] 01/23/2022 14:42:53 01/23/2022 15:19:20 Strain of right trapezius muscle 8274770724 1751978 S29.012A Overweight 983179390 E66 .3 [id number] Darrick Hedrick PA-C [facility] [address] [place] [address] 05/20/2022 15:00:39 2022 10:31:34 Fatigue 79342846 R53.83 Obstructiv e sleep apnea syndrome 52429913 G47.33 Hyperglyce mason due to type 2 diabetes mellitus 6195881461 03553 E11.65 Overweight 833960809 E66 .3 Type 2 pratima betes mellitus without complication 500789117 E11.9 [id number] Tammy Park MA [facility] [address] [place] [address] 06/28/2022 10:21:34 07/02/2022 09:07:56 Increased frequency of urination 249020785 R35.0 [id number] TRICE CHAIREZ MD [facility] (TRACK REPAIR LABORER) [address] [place] [address] 07/24/2022 14:33:40 08/06/2022 08:47:34 Dysuria 59942802 R30.0 - Reviewed abnormal dipstick results with patient; f/u UA/M with reflex culture- Will treat empiricall y for UTI based on symptoms with Keflex 500 mg BID x5d Vaginal irritation 05573 6004 N89.8 - f/u NuSwab; will treat as indicated by results- Symptoms may be related to suspected UTI [id number] Darrick Hedrick PA-C [facility] [address] [place] [address] 07/31/2022 17:51:04 08/06/2022 12:37:10 Type 2 diabetes mellitus without complication 927578062 E11.9 Type 2 pratima betes mellitus 20554663 E11.9 Overweight 556454511 E66 .3 [id number] Tammy Park MA [facility] [address] [place] [address] 01/14/2023 15:01:20 01/15/2023 11:25:43 Right side sciatica 7170008411 45279 M54.31 Overweight 374670996 E66 .3 Type 2 pratima betes mellitus 76673117 E11.9 [id number] Darrick Hedrick PA-C [facility] [address] [place] [address] 08/20/2023 13:53:40 08/22/2023 12:46:56 Type 2 diabetes mellitus 42260161 E11.9 Candidiasis of vagina 72 413295 B37.31 Candidiasis of mouth 797 49209 B37.0 [id number] Darrick Hedrick PA-C [facility] [address] [place] [address] 09/24/2023 15:31:20 09/29/2023 15:29:53 Bite of gnat 827083686 W57.XXXA Type 2 pratima betes mellitus 31230062 E11.9 Overweight 685508059 E66 .3 [id number] TISHA JEANNE, CLEMENTINE [facility] [address] [place] [address] 12/29/2023 10:56:26 12/31/2023 11:21:32 Gynecologic examination 98348426 Z01.419 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 1. Last pap smear: 08/27/2023 will send for records2. STI screening {{complete d declined *}}.3. Pt is postmenopa usal.4. Discussed breast self awareness5 . Mammogram 08/27/2023 will send for records6. 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 Overweight 899073769 E66 .3 Menopause 833051029 Z78. 0 pt is post menopausal Discussed vaginal changes, moisturize rs and lubricatio nDiscussed returning to clinic with any vaginal bleedingDi scussed Calcium and Vitamin D supplement ation [id number] Darrick Hedrick PA-C [facility] [address] [place] [address] 01/02/2024 14:41:10 01/09/2024 11:23:44 Flank pain 490360907 R10.9 Type 2 pratima betes mellitus without complication 923427809 E11.9 Overweight 506718671 E66 .3 Urinary tr act infectious disease 12004060 N10 [id number] Darrick Hedrick PA-C [facility] [address] [place] [address] 04/05/2024 15:53:27 04/09/2024 09:11:40 Nasal congestion 92552776 R09.81 Right bund le branch block 07304068 I45.19 Upper resp iratory infection 46898961 J01.01 Overweight 933859575 E66 .3 Upper resp iratory tract infection caused by Influenza A 5838196834 22673 J09.X2 Health Concerns Section Related Observation LastModified by Organization Detai ls LastModified Time None Recorded Concern Status LastModified by Organization Details LastModified Time None Recorded Advance Directives Directive None Recorded Payers Encounter Date Sequence Insurance Name Policy Number Policy Hylton Covered Member ID Hylton Member ID Guarantor Name 08/20/2023 1 [employer] [id number] David Johnson [id number] Estephania Johnson 09/24/2023 1 [employer] [id number] David Johnson [id number] Estephania Tendfozia 12/29/2023 1 [employer] [id number] David Johnson [id number] Estephania Johnson 12/29/2023 2 [place] [facility] Estephania Johnson [id number] Estephania Tendfoiza 01/02/2024 1 [employer]ENEFITS MANAGEMENT [id number] David Johnson [id number] Estephania Johnson 01/02/2024 2 [place] [facility] Estephania Johnson [id number] Estephania Johnson 04/05/2024 1 [employer] [id number] David Johnson [id number] Estephania Johnson 04/05/2024 2 [place] [facility] Estephania Johnson [id number] Estephania Johnson Notes Date Note Type Note Provider Name and Address Organization Details Recorded Time 08/20/2023 text/html urinating frequently...a1c was down to 7.8...losing weight..reports compliance with meds...says her blood sugar swings like this ...has been eating a lot of grapes and cantaloupe..just started jardience and reports jardience is improving her diabetes Darrick Hedrick PA-C Attn: Accounting,[address] [facility], [place], [address], [facility] 08/20/2023 14:26:31 09/24/2023 text/html got bitten by an insect that swelled last night and itched...has decreased a little.. Darrick Hedrick PA-C Attn: Accounting,[address] [facility], [place], [address], [facility] 09/24/2023 16:16:52 12/29/2023 text/html Estephania hart a 48 yo with HX of DM, HTN, GERD and cervical cancer presenting to get established for care. Reports menopause in 2013 after her chemo and radiation. She is being treated at the [facility] in [place], [place]. She goes yearly for her pap and mammogram. She had LEEP x 3 done. 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 Denies any breast changes/pain, fatigue/cold intolerance/hair [...] years. TISHA ANGEL NP Attn: Accounting[address] [place], [address], [facility] 12/29/2023 14:19:19 01/02/2024 text/html left ear pain an d urine pain since yesterday...on jardience currently...would like to switch endo to jennifer soliman... Darrick Hedrick PA-C Attn: Accounting[address] [facility], [place], [address], [facility] 01/02/2024 15:23:43 04/05/2024 text/html cough fatigue a little body aches..present for a week Darrick Hedrick PA-C Attn: Accounting[address] [facility], [place], [address], [facility] 04/05/2024 16:17:57 OBGyn Episode No OBEpisode recorded.
--- OUTSIDE RECORDS SUMMARY | 2024-06-04 18:40 | XMS_ITS | Encounter Summary ---
Author Organization [facility] Address [address] [place] [address] Phone Care Team Providers Care Smelter Charger Name Role Phone Jourdan Hedrick PAC Primary Care Provider [phone] Evaristo Garcia MD Unavailable Encounter Details Date Type Department Care Team (Late st Contact Info) Description 01/31/2023 [facility] [address] [place] [address] Jourdan Hedrick, PAC [address] [place] [address] Social History Tobacco Use Types [...] - 19 04/01/2024 04/01/2024 04/01/2024 8:05 PM DIRECTOR OF LOSS PREVENTION Influenza 04/01/2024 04/01/2024 04/08/2024 12:1 6 AM DIRECTOR OF LOSS PREVENTION documented as of this encounter Care Teams Smelter Charger Relationship Specialty Start Date End Date Jourdan Hedrick, [facility] [address] [place] [address] PCP - General Physician Concert Manager 04/24/20 Evaristo Garcia MD [address] [address] Consulting Physician Endocrinology 10/10/23 12/25/23 documented as of this encounter
--- OUTSIDE RECORDS SUMMARY | 2024-06-04 18:40 | XMS_ITS | Encounter Summary ---
Author Organization [facility] Address [address] [place] [address] Phone Care Team Providers Care Camera Operator Name Role Phone Jourdan Hedrick PAC Primary Care Provider [phone] Evaristo Garcia MD Unavailable Encounter Details Date Type Department Care Team (Late st Contact Info) Description 01/31/2023 [facility] [address] [place] [address] Jourdan Hedrick, PAC [address] [place] [address] Social History Tobacco Use Types [...] - 19 04/01/2024 04/01/2024 04/01/2024 8:05 PM METAL DRILL OPERATOR Influenza 04/01/2024 04/01/2024 04/08/2024 12:1 6 AM METAL DRILL OPERATOR documented as of this encounter Care Teams Camera Operator Relationship Specialty Start Date End Date Jourdan Hedrick, [facility] [address] [place] [address] PCP - General Physician Scratch Finisher 04/24/20 Evaristo Garcia MD [address] [address] Consulting Physician Endocrinology 10/10/23 12/25/23 documented as of this encounter
--- OUTSIDE RECORDS SUMMARY | 2024-06-04 18:40 | XMS_ITS | Clinical Summary ---
Author Organization [facility] Address [address] [place] [address] Care Team Providers Care Salesperson Women'S Hats Name Role Phone Jourdan Hedrick Primary Care Provider [phone] Allergies Active Allergy Reactions Criticality Noted Date [...] times a day 4 Active Dexcom G7 Oil Burner Repairer misc Use as directed. 1 each 4 [...] Type Department Care Team Description 06/03/2024 Telephone [facility] Diabetes Endocrine Care at [address] [place] [phone] Annetta Kearney DO 05/05/2024 1:00 PM CDT Office Visit [facility] Endocrine [facility] at [address] [place] [phone] Annetta Kearney, DO Type 2 diabetes mellitus [...] on file Legal Sex Female 12:57 AM WIRE SPOOLER Gender Identity Not on file Sexual Orientation Not on file Obstetrics History Last Filed Vital Signs Vital Sign Reading Time Taken Comments Blood Pressure 130/82 05/05/2024 12:56 PM CDT Pulse 84 05/05/2024 12:56 PM CDT Temperature 35.8 C (96.4 F) 11/01/2020 1:01 PM CDT Respiratory Rate 20 06/08/2020 1:39 PM CDT Oxygen Saturation 97% 01/13/2024 9:07 AM WIRE SPOOLER Inhaled Oxygen Concentration - - Weight 76.6 [...] 08/27/2022, Additional history exists eGFR 08/24/2024 08/25/2023, 0709/2023, 07/09/2023, Additional history exists Cervical Cancer Screening 08/25/2024 08/26/2023 Influenza Vaccine (Season Ended) 2024 12/20/19 15 Foot Exam 11/03/2024 11/04/2023 Hemoglobin A1C 11/05/2024 05/05/2024, 01/17, 11/04/2023 Procedures Procedure Name Priority Date/Time Associated Diagnosis Comments POCT HEMOGLOBIN A1C Routine 05/05/2024 1 :08 PM CDT Type 2 diabetes mellitus with hyperglycemia, without long-term current use of insulin (HCC) COMPREHENSIVE METABOLIC PANEL Routine 08/25/2023 from Last 3 Months or Most Recently Relevant to Health Maintenance Results * POCT hemoglobin A1c (05/05/2024 1:08 PM CDT) Pathologist [facility] Hemoglobin A1C, POC 7.2 4.0 - 5.6 % Blood 05/05/2024 1:08 PM CDT Annetta Kearney DO POINT OF CARE TEST ORDERABL ES Final Result * Comprehensive metabolic panel (08/25/2023) Pathologist [facility] SCRIBED Sodium 140 - - - mmol/L [...] - EXTERNAL LAB SCRIBED eGFR in NonAfrican Angolan >=60 - - - EXTERNAL LAB Blood 08/25/2023 us Historical Provider LAB BLOOD ORDERABLES Ashley diaz Result EXTERNAL LAB from Last 3 Months or Most Recently Relevant to Health Maintenance Insurance [employer] [facility] AET SIGNATURE [facility] C[facility] Care Teams Salesperson Women'S Hats Relationship Specialty Start Date End Date Jourdan Hedrick PA [address] [place] [address] PCP - General Family Practice 06/08/20
--- OUTSIDE RECORDS SUMMARY | 2024-06-04 18:40 | XMS_ITS | Clinical Summary ---
Author Organization [facility] Address [address] [place] [address] Phone Care Team Providers Care Voice Pathologist Name Role Phone Jourdan Hedrick Primary Care Provider [phone] Allergies Active Allergy Reactions Criticality Noted Date [...] CDT - 05/29/2024 3:26 AM CDT [facility] [address] [place] [address] Discharge Disposition: LWBS 05/28/2024 Travel 04/01/2024 7:24 PM CAN LINE OPERATOR - 04/01/2024 9:33 PM CAN LINE OPERATOR Emergency [facility] Emergency [address] [place] [address] Preston Recinos, IMAN Influenza A Discharge Disposition: [...] WITH AUTO DIFFERENTIAL STAT 04/01/2024 8:05 PM CAN LINE OPERATOR BASIC METABOLIC PANEL W/ CALCIUM TOTAL STAT 04/01/2024 8:05 PM CAN LINE OPERATOR COMPLETE BLOOD COUNT (CBC) WITH DIFF STAT 04/01/2024 8:05 PM CAN LINE OPERATOR XR CHEST 2 VIEWS STAT 04/01/2024 7:52 PM CAN LINE OPERATOR RSV,SARS-COV-2,INFLUE NZA A&B BY PCR STAT 04/01/2024 7:06 PM CAN LINE OPERATOR from Last 3 Months Results * (ABNORMAL) CBC with Auto Differential (04/01/2024 8:05 PM CAN LINE OPERATOR) WBC 5.21 4.00 - 12.00 10(3)/mcL 04/01/2024 8:41 PM CAN LINE OPERATOR [facility] RBC 4.61 3.80 - 5.30 10(6)/mcL 04/01/2024 8:41 PM CAN LINE OPERATOR [facility] HEMOGLOBIN (HGB) 14.2 12.0 - 15.8 g/dL 04/01/2024 8:41 PM [facility] HEMATOCRIT (HCT) 44.6 36.0 - 47.0 % 04/01/2024 8:41 PM [facility] MCV 96.7(H) 82.0 - 96.0 fL 04/01/2024 8:41 PM [facility] MCH 30.8 26.0 - 34.0 pg 04/01/2024 8:41 PM [facility] MCHC 31.8 31.0 - 36.0 g/dL 04/01/2024 8:41 PM [facility] PLATELET COUNT 155 140 - 440 10(3)/mcL 04/01/2024 8:41 PM [facility] RDW 12.5 11.8 - 15.5 % 04/01/2024 8:41 PM [facility] MPV 9.6(L) 9.7 - 12.4 fL 04/01/2024 8:41 PM [facility] NEUTROPHILS 83.1(H) 47.0 - 73.0 % 04/01/2024 8:41 PM [facility] LYMPHOCYTES 9.8(L) 18.0 - 42.0 % 04/01/2024 8:41 PM [facility] MONOCYTES 6.7 4.0 - 12.0 % 04/01/2024 8:41 PM [facility] EOSINOPHILS 0.2 0.0 - 5.0 % 04/01/2024 8:41 PM [facility] BASOPHILS 0.2 0.0 - 1.0 % 04/01/2024 8:41 PM [facility] ABSOLUTE NEUTROPHILS 4.33 1.60 - 7.70 10(3)/mcL 04/01/2024 8:41 PM [facility] ABSOLUTE LYMPHOCYTES 0.51(L) 1.30 - 3.20 10(3)/mcL 04/01/2024 8:41 PM [facility] ABSOLUTE MONOCYTES 0.35 0.20 - 1.00 10(3)/mcL 04/01/2024 8:41 PM CAN LINE OPERATOR [facility] ABSOLUTE EOSINOPHIL 0.01 0.00 - 0.40 10(3)/mcL 04/01/2024 8:41 PM [facility] ABSOLUTE BASOPHILS 0.01 0.00 - 0.10 10(3)/[facility] 04/01/2024 8:41 PM [facility] NRBC PER 100 WBC 0 04/01/19 8:41 PM CAN LINE OPERATOR [facility] Blood Venipuncture / Unknown 04/01/2024 8:05 PM CAN LINE OPERATOR 04/01/2024 8:37 PM CAN LINE OPERATOR us Preston Recinos PAC HEMATOLOGY ORDERABLE S Final Result [facility] [address] [place] [address] * (ABNORMAL) BMP w/ Ca (04/01/2024 8:05 PM CAN LINE OPERATOR) SODIUM 140 136 - 145 mmol/L 04/01/2024 9:01 PM [facility] POTASSIUM 3.9 3.5 - 5.1 mmol/L 04/01/2024 9:01 PM [facility] CHLORIDE 104 98 - 107 mmol/L 04/01/2024 9:01 PM [facility] CO2, VENOUS 28 22 - 30 mmol/L 04/01/2024 9:01 PM [facility] ANION GAP 11.9 <18.0 mmol/L 04/01/2024 9:01 PM [facility] GLUCOSE 167(H) 70 - 99 mg/dL 04/01/2024 9:01 PM [facility] BUN 10 5 - 18 mg/dL 04/01/2024 9:01 PM [facility] CREATININE, BLOOD 0.85 0.60 - 1.00 mg/dL 04/01/2024 9:01 PM [facility] BUN/CREATININE RATIO 12 12 - 20 ratio 04/01/2024 9:01 PM CAN LINE OPERATOR [facility] CALCIUM 8.7 8.7 - 10.5 mg/dL 04/01/2024 9:01 PM CAN LINE OPERATOR [facility] GFR, ESTIMATED >60 >=60 04/01/2024 9:01 PM CAN LINE OPERATOR [facility] Comment: Creatinine Clearance is the preferred criteria for selecting drug dose adjustments in renally impaired patients. The GFR is provided as additional pertinent clinical information. GFR is reported in mL/min/1.73 sq m. Calculation based on the Chronic Kidney Disease Epidemiology Collaboration (CKD- EPI) equation refit without adjustment for race. GFR, EST. >60 >=60 025 9:01 PM CAN LINE OPERATOR [facility] GFR, EST. NONAFRICAN >60 >=60 04/01/2024 9:01 PM CAN LINE OPERATOR [facility] Blood Venipuncture / Unknown 04/01/2024 8:05 PM CAN LINE OPERATOR 04/01/2024 8:37 PM CAN LINE OPERATOR Preston Recinos PAC CHEMISTRY ORDERABLES Final Result [facility] [address] [place] [address] * XR CHEST 2 VIEWS (04/01/2024 7:52 PM CAN LINE OPERATOR) Anatomical Region Laterality Modality Chest N/A Digital Radiogra phy 04/01/2024 9:17 PM CAN LINE OPERATOR Impressions 04/01/2024 9:20 PM CAN LINE OPERATOR IMPRESSION: No acute cardiopulmonary abnormality. Narrative 04/01/2024 9:20 PM CAN LINE OPERATOR EXAM DESCRIPTION: XR CHEST 2 VIEWS REASON [...] signed by Andrea CANO: RACHAEL Report ID: [id number] Reading Location: [id number] Procedure Note Andrea Galeana MD - 04/01/2024 [...] signed by Andrea CANO: RACHAEL Report ID: [id number] Reading Location: [id number] IMPRESSION: No acute cardiopulmonary abnormality. Preston Recinos [facility] IMG DIAGNOSTIC ORDER ANDREAS Final Result * (ABNORMAL) RSV,SARS-COV-2,INFLUENZA A&B BY PCR (04/01/2024 7:06 PM CAN LINE OPERATOR) FLU A Positive(A) Negative, Error 04/01/2024 8:05 PM CAN LINE OPERATOR [facility] FLU B Negative Negative 04/01/2024 8:05 PM CAN LINE OPERATOR [facility] RESP SYNC VIRUS Negative Negative 8:05 PM CAN LINE OPERATOR [facility] SARSCOV2 NOT DETECTED (Reference Range for this test is Not Detected) 04/01/2024 8:05 PM CAN LINE OPERATOR [facility] Comment:This test was perfor med by a Reverse Foam Fabricator PCR Method. Swab NASOPHARYNGEAL WASHINGS / Unknown Non-Phlebotomy Collection / Unknown 04/01/2024 7:06 PM CAN LINE OPERATOR 04/01/2024 7:21 PM CAN LINE OPERATOR us Pantera Navarrete MD MICROBIOLOGY - GENERAL OR DERABLES Final Result [facility] [address] [place] [address] from Last 3 Months Insurance MEDICAID [employer] Care Teams Voice Pathologist Relationship Specialty Start Date End Date Jourdan Hedrick PAC [address] [place] [address] PCP - General Physician Cleaning Team Member 04/24/20
[2024-06-04 18:43] VITALS: BP 127/85; PULSE 95; RESP 18; TEMP 36.4; O2SAT 99
--- NOTE | 2024-06-04 18:54 | ED_ITS ---
HPI - General Adult General Chief complaint: Upper Respiratory Infection Stated complaint: Throat Problem Time Seen by Provider: 06/04/24 18:56 Source: patient, RN notes reviewed and old records reviewed Mode of arrival: ambulatory Limitations: no limitations History of Present Illness HPI narrative: 49 year old female presents to express care with complaints of feeling like when she swallows it feels like something rubbing in her throat. Patient reports that she had dental extraction #28 on the 8th of this month and was seen in the clinic due to dental pain and was placed on Clindamycin on 05/29/2024 and patient reports that she stopped taking it 2 days ago. Patient reports no present jaw pain or dental pain can control own secretions well with no trismus or any swelling of jaw noted.Patient reports that she couldn't eat yesterday but has eaten today. MD complaint: throat discomfort Onset (ago): day(s) (yesterday) Severity scale (1-10): 3 Quality: other (irritation, rubbing feeling) Treatments prior to arrival: other (Tylenol) Related Data Home Medications ?Medication ?Instructions ?Recorded ?Confirmed ?Last Taken ?Type omeprazole 20 mg capsule,delayed 20 mg PO DAILY 12/07/19 06/04/24 Unknown History release albuterol sulfate 90 mcg/actuation 2 puff inhalation Q4-6H PRN 02/07/24 06/04/24 Unknown History aerosol inhaler shortness of breath or wheezing empagliflozin 25 mg tablet 25 mg PO DAILY 02/07/24 06/04/24 Unknown History (Jardiance) sitagliptin phosphate 100 mg 100 mg PO DAILY 02/07/24 Unknown History tablet (Januvia) metformin 500 mg tablet,extended mg PO 05/29/24 Unknown History release 24 hr rosuvastatin 5 mg tablet mg 05/29/24 Unknown History sennosides 8.6 mg-docusate sodium PO 05/29/24 Unknown History 50 mg tablet (Stimulant Laxative Plus) sulfamethoxazole 800 tablet 05/29/24 Unknown History mg-trimethoprim 160 mg tablet glimepiride 2 mg tablet mg 06/04/24 Unknown History Allergies Allergy/AdvReac Type Severity Reaction Status Date / Time Penicillins Allergy Rash Verified 06/04/24 18:44 Review of Systems Review of Systems: CONSTITUTIONAL: Denies fever, chills, or sweats. EYES: Denies visual changes, redness, or discharge. ENT: Denies rhinorrhea, congestion, sore throat, or otalgia.states when she swallow feels like something rubbing in throat, patient able to control own secretions no trismus CARDIOVASCULAR: Denies chest pain, palpitations, or edema. RESPIRATORY: Denies cough or dyspnea. GASTROINTESTINAL: Denies abdominal pain, nausea, vomiting, or diarrhea. GENITOURINARY: Denies dysuria or hematuria. SKIN: Denies rash or itching. MUSCULOSKELETAL: Denies back pain, joint pain, or myalgia. NEUROLOGIC: Denies headache, numbness, or weakness. PSYCHIATRIC: Denies anxiety or depression. All systems reviewed & are unremarkable except as noted in HPI and below PMFSH Past Medical History Medical History (Updated 06/05/24 @ 00:01 by Lito Pdailla) Ear infection Diabetes Cervical cancer That included lymph nodes and received radiation and chemo delivery delivered Hernia Enlarged liver Surgical History Surgical History (Updated 06/05/24 @ 18:07 by Faina Oquendo NP) H/O tooth extraction 05/25/2024 H/O section X3 Family History Family History Father Hypertension Cerebrovascular accident Mother Diabetes mellitus Paranoid schizophrenia Social History Social History Smoking status: Former smoker Tobacco type: cigarettes Second hand tobacco smoke exposure: No Smoking end date: 02/17/99 Alcohol intake: never Substance use: never Living arrangements: with family Occupation/Education: unemployed Gender identity (if verbalized by the patient): Female Sexual Orientation (if Verbalized by the Patient): Straight or Heterosexual Comments At time of signature, agree with nursing past medical, surgical, social and family history. There is no relevant family history pertinent to the presenting complaint Exam Narrative: GENERAL: Well-appearing, well-nourished, and in no acute distress. HEAD: Normocephalic, atraumatic. EYES: PERRLA and EOMI. ENT: Nares clear, no rhinorrhea or epistaxis. Mucous membranes moist.TM's normal throat pink with no swelling or redness, no trismus or any Cristofer angina noted NECK: Supple. no lymphadenopathy CHEST: Clear to auscultation. No respiratory distress. no cough noted SAO2 99% on room air, denies any feelings of dyspnea HEART: Regular rate and rhythm. No murmur heard. Normal peripheral pulses. ABDOMEN: Soft, nontender, nondistended, normal active bowel sounds. EXTREMITIES: Normal range of motion. No edema. SKIN: Warm, dry, no rash. NEURO: No focal deficits. Alert and oriented x3. Course Course Emergency Course: Patient is aware of diagnosis, understands and agrees to treatment plan.? Anticipatory guidance given.? Patient agrees to follow-up as directed and is aware of reasons to seek care at the emergency department. Portions of this record may have been created with voice recognition software Level of Care: Express Care Visit Vital Signs Vital signs: Vital Signs Temperature 36.4 C 06/04/24 18:43 Pulse Rate 95 06/04/24 18:43 Respiratory Rate 18 06/04/24 18:43 Blood Pressure 127/85 06/04/24 18:43 Pulse Oximetry 99 06/04/24 18:43 Oxygen Delivery Room Air 06/04/24 18:43 Temperature 36.4 C 06/04/24 18:43 Pulse Rate 95 06/04/24 18:43 Respiratory Rate 18 06/04/24 18:43 Blood Pressure 127/85 06/04/24 18:43 Pulse Oximetry 99 06/04/24 18:43 Oxygen Delivery Room Air 06/04/24 18:43 Reviewed Medical Decision Making MDM Narrative Medical decision making narrative: Exam findings and imaging show no acute concerns or changes; patient is non- toxic appearing and is in no distress.? Patient is appropriate for outpatient treatment and follow-up Differential Diagnosis Differential Diagnosis: URI, throat pain, throat irritation, painful swallowing without pharyngitis Medical Records Medical records reviewed: Yes I reviewed the external patient's medical records. Vital Signs Vital Signs: Vital Signs Temperature 36.4 C 06/04/24 18:43 Pulse Rate 95 06/04/24 18:43 Respiratory Rate 18 06/04/24 18:43 Blood Pressure 127/85 06/04/24 18:43 Pulse Oximetry 99 06/04/24 18:43 Oxygen Delivery Room Air 06/04/24 18:43 Temperature 36.4 C 06/04/24 18:43 Pulse Rate 95 06/04/24 18:43 Respiratory Rate 18 06/04/24 18:43 Blood Pressure 127/85 06/04/24 18:43 Pulse Oximetry 99 06/04/24 18:43 Oxygen Delivery Room Air 06/04/24 18:43 reviewed Critical Care Time Critical Care Time Critical Care Time: No Discharge Plan Discharge Clinical Impression: Throat soreness Patient Disposition: Home Condition: Stable Instructions: Pharyngitis (ED) Additional Instructions: Increase fluids especially juices and water Avoid any some scratchy foods, citrus drinks or fruits Decadron directed--take with food Ice pack to throat as needed for 20 minutes 4 times daily Salt water gargles, throat lozenges or throat sprays as desired If any increased discomfort any difficulty swallowing or swelling noted to face or neck go directly to the emergency room If your symptoms persist, change or worsen significantly before you can contact your personal physician then please, without delay, go to the emergency department for further evaluation. Follow-up with PCP in 7-10 days or sooner if needed Follow up with PCP soon in regards to your blood pressure which is elevated above threshold for referral. Blood pressure above 120/80 may indicate pre-hypertension. Monitor for any fevers Patient Language: Filipino Prescriptions: New dexamethasone 4 mg tablet 4 mg PO DAILY Qty: 2 0RF Rx Instructions: 2 tabs dose X1 No Action sennosides-docusate sodium [Stimulant Laxative Plus] 8.6-50 mg tablet PO sulfamethoxazole-trimethoprim 800-160 mg tablet metformin 500 mg tablet extended release 24 hr PO rosuvastatin 5 mg tablet clindamycin HCl [Cleocin HCl] 300 mg capsule 300 mg PO Q6H 10 Days Qty: 40 0RF glimepiride 2 mg tablet omeprazole 20 mg capsule,delayed release(DR/EC) 20 mg PO DAILY Jardiance 25 mg tablet 25 mg PO DAILY Januvia 100 mg tablet 100 mg PO DAILY albuterol sulfate 90 mcg/actuation HFA aerosol inhaler 2 puff INHALATION Q4-6H PRN (Reason: shortness of breath or wheezing) Follow-up/Referrals: Ryley,ROSEY Carpenter [Primary Care Provider] - Time of Disposition: 19:14 Quality [place] Coma Scale Eyes: Open Verbal: Oriented and Alert Motor: Follows Commands [place] Coma Total Score: 15
== END 2024-06-04 19:25 | disposition home or self-care (01) ==
PROVIDERS: Emergency Provider Registered Nurse; PCP Physician Assistant
DX: R07.0 Pain in throat (principal); Z87.891 Personal history of nicotine dependence; E11.9 Type 2 diabetes mellitus without complications; Z79.84 Long term (current) use of oral hypoglycemic drugs; Z85.41 Personal history of malignant neoplasm of cervix uteri; Z92.3 Personal history of irradiation; Z92.21 Personal history of antineoplastic chemotherapy
CPT/HCPCS: 99213; G0463

== ENCOUNTER 2024-09-19 15:10 | Emergency (ER) | payer OTHER, SELFPAY ==
--- OUTSIDE RECORDS SUMMARY | 2024-09-19 15:13 | XMS_ITS | Clinical Summary ---
Author Organization [facility] Address [address] [place] [address] Phone Care Team Providers Care Analytics Leader Name Role Phone Jourdan Hedrick Primary Care Provider [phone] Allergies Active Allergy Reactions Criticality Noted Date [...] Encounters Date Type Department Care Team Description 09/07/2024 11:27 AM CDT - 09/07/2024 11:59 PM CDT Hospital Encounter [facility] Resources [address] [place] [address] Provider, Not On File Discharge Disposition: Discharged to home or Selfcare 09/07/2024 11:26 AM CDT [facility] [address] [place] [address] Provider, Not On File Discharge Disposition: Discharged to home or Selfcare 09/01/2024 3:32 PM CDT - 09/01/2024 11:59 PM CDT Hospital [facility] [address] [place] [address] Jourdan Hedrick, IMAN Discharge Disposition: Discharged to home or Selfcare 09/01/2024 2:27 PM CDT - 09/01/2024 3:31 PM CDT Hospital [facility] Mamm[facility] 1 [place] [address] Diana Mcintyre, PROJECT CONTROL MANAGER, HUMAN SERVICES INSTRUCTOR Discharge Disposition: Discharged to home or Selfcare 09/01/2024 Transcribe Orders [facility] Scheduling 1 [place] [address] Estela Kearney, PAC Malignant neoplasm of cervix, unspecified site (HCC) (Primary Dx) 09/01/2024 Travel 07/26/2024 Transcribe Orders [facility] Scheduling [address] [place] [address] Diana Mcintyre, PROJECT CONTROL MANAGER, HUMAN SERVICES INSTRUCTOR Encounter for screening mammogram for malignant neoplasm of breast (Primary Dx) from Last 3 Months Immunizations [...] Sign Reading Time Taken Comments Blood Pressure 103/70 06/04/2024 10:30 PM CDT Pulse 86 06/04/2024 10:30 PM CDT Temperature 37.2 C (98.9 F) 06/04/2024 7:59 PM CDT Respiratory Rate 17 06/04/2024 10:30 PM CDT Oxygen Saturation 100% 06/04/2024 10:30 PM CDT Inhaled Oxygen Concentration - - Weight 73.9 kg (163 lb) 06/04/2024 7:59 PM CDT Height 162.6 cm (5' 4) 06/04/2024 7:59 PM CDT Body Mass Index 27.98 06/04/2024 7:59 PM CDT Plan of Treatment Health Maintenance Due Date Last Done Comments Hepatitis C Virus (HCV) Screening 1977 TdaP Immunization 1977 SARS-COV-2 Immunization (#1) 1982 Hepatitis B Immunization (1 of 3 - 19+ 3-dose series) 1996 Pneumococcal Immunization Combined (1 of 2 - PCV) 1996 HPV/Cotest 05/22/2007 Cologuard 2022 Colonoscopy 2022 Colorectal Cancer Screening 2022 Immunochemical Fecal Occult Blood 2022 11/02/2020 Influenza Immunization (#1) 2024 12/19/2014 Mammogram 09/01/2025 09/01/2024, 07/0 09/2023, 08/25/2023, Additional history exists Cervical Cancer Screening (CCS) 08/25/2026 Pap Smear 08/25/2026 08/26/2023 Respiratory Syncytial Virus (RSV) Immunization (Adult) (1 - 1-dose 75+ series) 2052 Discussion re Starting/Frequency of Mammograms Completed 09/01/2024, 08/25/2023 Human Papillomavirus (HPV) Immunization Aged Out No longer eligible based on patient's age to complete this topic Meningococcal Immunization (ACWY) Aged Out No longer eligible based on patient's age to complete this topic Rotavirus Immunization Aged Out No lo nger eligible based on patient's age to complete this topic Procedures Procedure Name Priority Date/Time Associated Diagnosis Comments [facility] REFERENCE IMAGES FOR IMAGE IMPORT Routine 09/07/2024 11:27 AM CDT JENNIFER REFERENCE IMAGES FOR IMAGE IMPORT Routine 09/07/2024 11:26 AM CDT JENNIFER SCREENING BILATERAL DIGITAL W CAD W TERESA Routine 09/01/2024 2:50 PM CDT Encounter for screening mammogram for malignant neoplasm of breast from Last 3 Months Results * [facility] REFERENCE IMAGES FOR IMAGE IMPORT (09/07/2024 11:27 AM CDT) Only the most recent of2 resultswithin the time period is included. us Not On File Provider IMG MAMMO ORDERABLES Final Result * [facility] SCREENING BILATERAL DIGITAL W CAD W TERESA (09/01/2024 2:50 PM CDT) Anatomical Region Laterality Modality breast Bilateral Mammography 09/01/2024 3:23 PM CDT Narrative 09/09/2024 8:19 AM CDT - JENINFER SCREENING BILATERAL DIGITAL W CAD W TERESA BILATERAL DIGITAL SCREENING MAMMOGRAM 3D/2D WITH CAD WITH MEDIOLATERAL OBLIQUE CRANIOCAUDAL: 09/01/2024 The study was acquired using digital technology and interpreted from soft copy. Current study was also evaluated with ICAD version 7.2. 2D digital mammographic views, as well as 3D digital tomosynthesis were performed in the CC and MLO projections. CLINICAL: Routine screening. Patient has no complaints. Personal history of cervical cancer with radiation. Paternal aunt had breast cancer. COMPARISONS: Comparison is made to exams dated: 08/25/2023 and 08/27/2022 [facility]. BREAST TISSUE:The breasts are heterogeneously dense, which may obscure small masses. FINDINGS: No significant masses, calcifications, or other findings are seen in either breast. There has been no significant interval change. IMPRESSION: NEGATIVE There is no mammographic evidence of malignancy. A 1 year screening mammogram is recommended. A letter will be sent to the patient with these results. The patient will be entered into a reminder system with a target due date of 1 year for her next screening exam. Electronically signed by: Jese orr/penrad:09/07/2024 22:30:02 Recruiting Specialist(s): RT Chas(R)(M), [facility] letter sent: Normal Exam Reading location: [place] Mammogram BI-RADS: Category 1: Negative Procedure Note Jese El MD - 09/09/2024 - JENNIFER SCREENING BILATERAL DIGITAL W CAD W TERESA BILATERAL DIGITAL SCREENING MAMMOGRAM 3D/2D WITH CAD WITH MEDIOLATERAL OBLIQUE CRANIOCAUDAL: 09/01/2024 The study was acquired using digital technology and interpreted from soft copy. Current study was also evaluated with [employer] version 7.2. 2D digital mammographic views, as well as 3D digital tomosynthesis were performed in the CC and MLO projections. CLINICAL: Routine screening. Patient has no complaints. Personal history of cervical cancer with radiation. Paternal aunt had breast cancer. COMPARISONS: Comparison is made to exams dated: 08/25/2023 and 08/27/2022 [facility]. BREAST TISSUE:The breasts are heterogeneously dense, which may obscure small masses. FINDINGS: No significant masses, calcifications, or other findings are seen in either breast. There has been no significant interval change. IMPRESSION: NEGATIVE There is no mammographic evidence of malignancy. A 1 year screening mammogram is recommended. A letter will be sent to the patient with these results. The patient will be entered into a reminder system with a target due date of 1 year for her next screening exam. Electronically signed by: Jese orr/penrad:09/07/2024 22:30:02 Recruiting Specialist(s): RT Chas(R)(M), [facility] letter sent: Normal Exam Reading location: [place] Mammogram BI-RADS: Category 1: Negative Diana Mcintyre PROJECT CONTROL MANAGER, HUMAN SERVICES INSTRUCTOR IMG MAMMO ORDERABLES F inal Result from Last 3 Months Insurance MEDICAID [employer] Care Teams Analytics Leader Relationship Specialty Start Date End Date Jourdan Hedrick, IMAN [address] [place] [id number] PCP - General Physician Director Of Land 04/24/20
--- OUTSIDE RECORDS SUMMARY | 2024-09-19 15:13 | XMS_ITS | Encounter Summary ---
Author Organization [facility] Address [address] [place] [address] Phone Care Team Providers Care Community Service Technician Name Role Phone Jourdan Hedrick PAC Primary Care Provider [phone] Evaristo Garcia MD Unavailable Encounter Details Date Type Department Care Team (Late st Contact Info) Description 01/31/2023 [facility] Admitting [address] [place] [address] Jourdan Hedrick, PAC [address] [place] [address] Social History Tobacco Use Types [...] - 19 04/01/2024 04/01/2024 04/01/2024 8:05 PM SURVEY RESEARCH PROFESSOR Influenza 04/01/2024 04/01/2024 04/08/2024 12:1 6 AM SURVEY RESEARCH PROFESSOR documented as of this encounter Care Teams Community Service Technician Relationship Specialty Start Date End Date Jourdan Hedrick, [facility] [address] [place] [address] PCP - General Physician Home Health Care Social Worker 04/24/20 Evaristo Garcia MD [address] [address] Consulting Physician Endocrinology 10/10/23 12/25/23 documented as of this encounter
--- OUTSIDE RECORDS SUMMARY | 2024-09-19 15:13 | XMS_ITS | Referral Summary ---
Author Organization [facility] Address [address] [place] [address] Care Team Providers Care Dental Biller Name Role Phone Jourdan Hedrick Primary Care Provider [phone] Encounters Date Type Department Care Team Description 09/10/2024 Telephone [facility] Medical [facility] Diabetes Endocrine Care at [address] [place] [phone] Annetta Kearney DO 09/08/2024 Telephone [facility] Gastroenterology at [address] [place] [address] Marianne Weston LPN 09/08/2024 Telephone [facility] Medical [facility] Gastroenterology at [address] [place] [address] Karis Meek MA 08/10/2024 2:00 PM CDT Office Visit [facility] Medical [facility] Diabetes Endocrine Care at [address] [place] [address] Annetta Kearney, DO Type 2 diabetes mellitus [...] Medications fluticasone propionate (FLONASE) 50 mcg/actuation nasal sprayIndicati ons:Nasal congestion,An osmia Administer 2 sprays into each nostril daily 16 g 11 07/13/19 21 Active Jardiance 25 mg tablet 04/29/19 24 Active albuterol HFA (PROVENTIL HFA,VENTOLIN HFA,PROAIR HFA) 90 mcg/actuation inhaler Inhale 2 puffs every 6 (six) hours as needed 06/01/19 24 Active magnesium citrate solution TAKE 150ML BY MOUTH TWICE DAILY NEEDED FOR CONSTIPATION 07/09/19 24 Active polyethylene glycol (MIRALAX) 17 gram/dose bulk powder Take 1 capful daily as needed for constipation management. 595 g 3 07/16/19 24 Active Additional Information Patient not taking.Reported on 08/10/2024 nystatin cream Apply topically 2 (two) times a day 08/26/19 24 Active Dexcom G7 [employer] misc Use as directed. 1 each 11/04/19 Active Additional Information Patient not taking.Reported on 05/05/2024 Dexcom G7 Sensor device Use as directed. Change sensor every 10 days. 3 each 11/04/19 Active Additional Information Patient not taking.Reported on 05/05/2024 SITagliptin phosphate (Januvia) 100 mg tablet Take 1 tablet (100 mg total) by mouth daily Active tirzepatide (Mounjaro) 2.5 mg/0.5 mL pen injector Inject 0.5 mL (2.5 mg total) under the skin once a week 2 mL 6 02/03/20 24 Active Additional Information Patient not taking.Reported on 05/05/2024 rosuvastatin (CRESTOR) 5 mg tablet Take 1 tablet (5 mg total) by mouth daily 90 tablet 3 05/06/19 25 026 Active Additional Information Patient not taking.Reported on 08/10/2024 senna-docusat e (PERICOLACE) 8.6-50 mg Take 1-2 pills nightly for constipation management. 180 tablet 3 09/09/19 25 Active hydrocortison e (ANUSOL-HC) 2.5 % rectal cream For hemorrhoid management, squeeze small amount into rectum using internal applicator and also apply small amount externally to rectum up to twice daily as needed. 28 g 5 09/09/[address] (PROTONIX) 20 mg EC tablet Take 1 tablet (20 mg total) by mouth daily 90 tablet 09/09/19 25 025 Active glimepiride (AMARYL) 2 mg tabletIndicat ions:type 2 diabetes mellitus Take 1 tablet (2 mg total) by mouth daily before breakfast 30 tablet 11 09/11/19 25 026 Active omeprazole (PriLOSEC) 20 mg capsule Take by mouth daily 07/09/19 24 025 Discontinued(R eorder) senna-docusat e (PERICOLACE) 8.6-50 mg Take 1-2 pills nightly for constipation management. 180 tablet 3 07/16/19 24 025 Discontinued(R eorder) hydrocortison e (ANUSOL-HC) 2.5 % rectal cream For hemorrhoid management, squeeze small amount into rectum using internal applicator and also apply small amount externally to rectum up to twice daily as needed. 28 g 5 01/13/20 24 025 Discontinued(R eorder) glimepiride (AMARYL) 1 mg tabletIndicat ions:type 2 diabetes mellitus Take 1 tablet (1 mg total) by mouth daily before breakfast 30 tablet 11 08/11/19 025 Discontinued(R eorder) glimepiride (AMARYL) 1 mg tabletIndicat ions:type 2 diabetes mellitus Take 1 tablet (1 mg total) by mouth daily before breakfast 90 tablet 3 09/08/19 25 025 Discontinued omeprazole (PriLOSEC) 20 mg capsule Take 1 capsule (20 mg total) by mouth daily 90 capsule 1 09/09/19 25 025 Discontinued Active Problems Problem Noted Date Diagnosed Date [...] Cigarettes Q uit: 2000 Smokeless Tobacco: Never Tobacco Cessation:Counseling Given: Not [...] on file 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 Gender Identity Not on file Sexual Orientation Not on file Last Filed Vital Signs Vital Sign Reading Time Taken Comments Blood Pressure 110/72 08/10/2024 1:47 PM CDT Pulse 76 08/10/2024 1:47 PM CDT Temperature 35.8 C (96.4 F) 11/01/2020 1:01 PM CDT Respiratory Rate 20 06/08/2020 1:39 PM CDT Oxygen Saturation 97% 01/13/2024 9:07 AM COST CLERK Inhaled Oxygen Concentration - - Weight 74.6 kg (164 lb 8 oz) 08/10/2024 1:47 PM CDT Height 162.6 cm (5' 4) 08/10/2024 1:47 PM CDT Body Mass Index 28.24 08/10/2024 1:47 PM CDT Plan of Treatment Not on file Procedures Procedure Name Priority Date/Time Associated Diagnosis Comments POCT HEMOGLOBIN A1C Routine 08/10/2024 1 :58 PM CDT Type 2 diabetes mellitus with hyperglycemia, without long-term current use of insulin (HCC) COMPREHENSIVE METABOLIC PANEL Routine 08/25/2023 from Last 3 Months or Most Recently Relevant to Health Maintenance Results * (ABNORMAL) POCT hemoglobin A1c (08/10/2024 1:58 PM CDT) [facility] Hemoglobin A1C, POC 7.5(A) 4.0 - 5.6 % Blood 08/10/2024 1:58 PM CDT Annetta Kearney DO POINT OF CARE TEST ORDERABL ES Final Result * Comprehensive metabolic panel (08/25/2023) Pathologist [facility] SCRIBED Sodium 140 - - - mmol/L [...] - EXTERNAL LAB SCRIBED eGFR in NonAfrican Gambian >=60 - - - EXTERNAL LAB Blood 08/25/2023 [facility] Provider LAB BLOOD ORDERABLES Ashley emily Result EXTERNAL LAB from Last 3 Months or Most Recently Relevant to Health Maintenance [facility] Care Teams Dental Biller Relationship Specialty Start Date End Date Jourdan Hedrick PA [address] [place] [address] PCP - General Family Practice 06/08/20
--- OUTSIDE RECORDS SUMMARY | 2024-09-19 15:13 | XMS_ITS | Clinical Summary ---
Author Organization [facility] Address [address] [place] [address] Care Team Providers Care Pattern Cleaner Name Role Phone Jourdan Hedrick Primary Care Provider Allergies Active Allergy Reactions Criticality Noted Date [...] topically 2 (two) times a day 08/26/19 Active Dexcom G7 Process Environmental Technician misc Use as directed. 1 each 11/04/19 [...] the skin once a week 2 mL 02/03/20 Active Additional Information Patient not taking.Reported on [...] daily before breakfast 30 tablet 11 08/11/19 25 025 Discontinued(R eorder) glimepiride (AMARYL) 1 mg [...] Type Department Care Team Description 09/10/2024 Telephone [facility] Medical Group Diabetes Endocrine Care at [address] [place] [address] Annetta Kearney DO 09/08/2024 Telephone [facility] Gastroenterology at [address] [place] [address] Marianne Weston LPN 09/08/2024 Telephone [facility] Gastroenterology at [address] [place] [address] Karis Meek MA 08/10/2024 2:00 PM CDT Office Visit [facility] Medical [facility] Diabetes Endocrine Care at [address] [place] [address] Annetta Kearney, DO Type 2 diabetes mellitus [...] on file 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 Gender Identity Not on file Sexual Orientation Not on file Obstetrics History Last Filed Vital Signs Vital Sign Reading Time Taken Comments Blood Pressure 110/72 08/10/2024 1:47 PM CDT Pulse 76 08/10/2024 1:47 PM CDT Temperature 35.8 C (96.4 F) 11/01/2020 1:01 PM CDT Respiratory Rate 20 06/08/2020 1:39 PM CDT Oxygen Saturation 97% 01/13/2024 9:07 AM RETAIL CENTER RECEPTIONIST Inhaled Oxygen Concentration - - Weight 74.6 kg (164 lb 8 oz) 08/10/2024 1:47 PM CDT Height 162.6 cm (5' 4) 08/10/2024 1:47 PM CDT Body Mass Index 28.24 08/10/2024 1:47 PM CDT Plan of Treatment Health Maintenance [...] 08/24/2024 08/25/2023, 08/25/2023, 08/27/2022, Additional history exists Cervical Cancer Screening 08/25/2024 08/26/2023 Influenza Vaccine (#1) 2024 12/19/2014 Foot Exam 11/03/2024 11/04/2023 Hemoglobin A1C 02/09/2025 08/10/2024, 04/17, 02/03/2024, Additional history exists eGFR 06/04/2025 06/04/2024, 07/0 09/2023, 08/25/2023, Additional history exists Procedures Procedure Name Priority Date/Time Associated Diagnosis Comments POCT HEMOGLOBIN A1C Routine 08/10/2024 1 :58 PM CDT Type 2 diabetes mellitus with hyperglycemia, without long-term current use of insulin (HCC) COMPREHENSIVE METABOLIC PANEL Routine 08/25/2023 from Last 3 Months or Most Recently Relevant to Health Maintenance Results * (ABNORMAL) POCT hemoglobin A1c (08/10/2024 1:58 PM CDT) Pathologist [facility] Hemoglobin A1C, POC 7.5(A) 4.0 - 5.6 % Blood 08/10/2024 1:58 PM CDT Annetta Kearney DO POINT OF CARE TEST ORDERABL ES Final Result * Comprehensive metabolic panel (08/25/2023) Pathologist [facility] SCRIBED Sodium 140 - - - mmol/L [...] - EXTERNAL LAB SCRIBED eGFR in NonAfrican Nigerien >=60 - - - EXTERNAL LAB Blood 08/25/2023 us Historical Provider LAB BLOOD ORDERABLES Ashley l Result EXTERNAL LAB from Last 3 Months or Most Recently Relevant to Health Maintenance [facility] Care Teams Pattern Cleaner Relationship Specialty Start Date End Date Jourdan Hedrick PA [address] [place] [address] PCP - General Family Practice 06/08/20
[2024-09-19 15:30] VITALS: BP 118/76; PULSE 98; RESP 20; TEMP 36.3; O2SAT 99
[2024-09-19 15:38] LABS: EDSTREPNEGPOS1 Negative (Negative)
[2024-09-19 15:39] LABS: EDCOVIDSCREEN Negative (Negative); EDINFLUASCREEN Negative (Negative); EDINFLUBSCREEN Negative (Negative)
--- NOTE | 2024-09-19 16:10 | ED.GENADULT ---
HPI - General Adult General Chief complaint: Upper Respiratory Infection Stated complaint: Sinus Congestion Source: patient Mode of arrival: ambulatory Limitations: no limitations History of Present Illness HPI narrative: Patient presents for evaluation of sick symptoms for last 3 days. Symptoms include headache, sore throat, nasal congestion, and a productive cough of clear sputum. She has tried flonase and beandryl for her symptoms. She does not smoke. Her has similar symptoms but is not interested in a medical exam. Related Data Home Medications ?Medication ?Instructions ?Recorded ?Confirmed ?Last Taken ?Type albuterol sulfate 90 mcg/actuation 2 puff inhalation Q4-6H PRN 02/07/24 06/04/24 Unknown History aerosol inhaler shortness of breath or wheezing empagliflozin 25 mg tablet 25 mg PO DAILY 02/07/24 06/04/24 Unknown History (Jardiance) sitagliptin phosphate 100 mg 100 mg PO DAILY 02/07/24 Unknown History tablet (Januvia) sennosides 8.6 mg-docusate sodium PO 05/29/24 Unknown History 50 mg tablet (Stimulant Laxative Plus) glimepiride 2 mg tablet mg 06/04/24 Unknown History fluconazole 200 mg tablet mg 09/19/24 Unknown History fluticasone propionate 50 intranasal 09/19/24 Unknown History mcg/actuation nasal spray,suspension hydrocortisone 2.5 % topical cream 09/19/24 Unknown History with perineal applicator (Procto-Med HC) pantoprazole 20 mg tablet,delayed mg PO 09/19/24 Unknown History release Allergies Allergy/AdvReac Type Severity Reaction Status Date / Time Penicillins Allergy Rash Verified 09/19/24 15:29 Review of Systems Review of Systems: CONSTITUTIONAL: Denies fever, chills, or sweats. EYES: Denies visual changes, redness, or discharge. ENT: Reports sinus congestion and sore throat. Denies otalgia CARDIOVASCULAR: Denies chest pain, palpitations, or edema. RESPIRATORY:Reports cough. Denies dyspnea. GASTROINTESTINAL: Denies abdominal pain, nausea, vomiting, or diarrhea. GENITOURINARY: Denies dysuria or hematuria. SKIN: Denies rash or itching. MUSCULOSKELETAL: Denies back pain, joint pain, or myalgia. NEUROLOGIC: Reports headache. Denies numbness, dizziness, or weakness. PSYCHIATRIC: Denies anxiety or depression. PMFSH Past Medical History Medical History Ear infection Diabetes Cervical cancer That included lymph nodes and received radiation and chemo delivery delivered Hernia Enlarged liver Surgical History Surgical History H/O tooth extraction 05/25/2024 H/O section X3 Family History Family History Father Hypertension Cerebrovascular accident Mother Diabetes mellitus Paranoid schizophrenia Social History Social History Smoking status: Former smoker Tobacco type: cigarettes Second hand tobacco smoke exposure: No Smoking end date: 02/17/99 Alcohol intake: never Substance use: never Living arrangements: with family Occupation/Education: unemployed Gender identity (if verbalized by the patient): Female Sexual Orientation (if Verbalized by the Patient): Straight or Heterosexual Exam Narrative: GENERAL: Well-appearing, well-nourished, and in no acute distress. HEAD: Normocephalic, atraumatic. EYES: PERRLA and EOMI. ENT: Nares clear, no rhinorrhea or epistaxis. Mucous membranes moist. Bilateral tonsillar enlargement and erythema without exudate. Uvula is midline. Bilateral TMs pearly montague nonbulging NECK: Supple. No adenopathy or masses. No carotid bruits or JVD CHEST: Clear to auscultation. No respiratory distress. No wheezes rales or rhonchi HEART: Regular rate and rhythm. No murmur heard. Normal peripheral pulses. ABDOMEN: Soft, nontender, nondistended, normal active bowel sounds. EXTREMITIES: Normal range of motion. No edema. SKIN: Warm, dry, no rash. NEURO: No focal deficits. Alert and oriented x3. PSYCH: Normal mood and affect. Course Course Emergency Course: This is a 49-year-old female who presented for evaluation of sick symptoms. COVID, influenza, strep were negative. Through shared decision making opted to proceed with abx in event that strep is false negative. Discussed cephalexin but she indicates azithromycin has been helpful in the past. I think it is reasonable to use azithromycin. Follow-up with primary provider. Go to the ER for worsening symptoms. Patient in agreement with plan of care. Level of Care: Express Care Visit Vital Signs Vital signs: Vital Signs Temperature 36.3 C L 09/19/24 15:30 Pulse Rate 98 09/19/24 15:30 Respiratory Rate 20 09/19/24 15:30 Blood Pressure 118/76 09/19/24 15:30 Pulse Oximetry 99 09/19/24 15:30 Oxygen Delivery Room Air 09/19/24 15:30 Temperature 36.3 C L 09/19/24 15:30 Pulse Rate 98 09/19/24 15:30 Respiratory Rate 20 09/19/24 15:30 Blood Pressure 118/76 09/19/24 15:30 Pulse Oximetry 99 09/19/24 15:30 Oxygen Delivery Room Air 09/19/24 15:30 Medical Decision Making Vital Signs Vital Signs: Vital Signs Temperature 36.3 C L 09/19/24 15:30 Pulse Rate 98 09/19/24 15:30 Respiratory Rate 20 09/19/24 15:30 Blood Pressure 118/76 09/19/24 15:30 Pulse Oximetry 99 09/19/24 15:30 Oxygen Delivery Room Air 09/19/24 15:30 Temperature 36.3 C L 09/19/24 15:30 Pulse Rate 98 09/19/24 15:30 Respiratory Rate 20 09/19/24 15:30 Blood Pressure 118/76 09/19/24 15:30 Pulse Oximetry 99 09/19/24 15:30 Oxygen Delivery Room Air 09/19/24 15:30 Lab Data Labs: Lab Results 09/19/24 09/19/24 Range/Units 15:35 15:37 POC Influenza A Ag Negative (Negative) POC Influenza B Ag Negative (Negative) POC SARS CoV-2 Ag Negative (Negative) POC Grp A Strep Screen Negative (Negative) Discharge Plan Discharge Clinical Impression: Pharyngitis Patient Disposition: Home Condition: Stable Instructions: Antibiotic Form, Pharyngitis (ED) Patient Language: Macedonian Prescriptions: New azithromycin [Zithromax Z-Javad] 250 mg tablet See Rx Instructions .ROUTE .COMPLEX Qty: 6 0RF Rx Instructions: For 250 mg dose pack: take 500 mg today (day 1), then 250 mg for 4 days (days 2-5) No Action sennosides-docusate sodium [Stimulant Laxative Plus] 8.6-50 mg tablet PO glimepiride 2 mg tablet fluconazole 200 mg tablet pantoprazole 20 mg tablet,delayed release (DR/EC) PO hydrocortisone [Procto-Med HC] 2.5 % cream with perineal applicator fluticasone propionate 50 mcg/actuation spray,suspension INTRANASAL Jardiance 25 mg tablet 25 mg PO DAILY Januvia 100 mg tablet 100 mg PO DAILY albuterol sulfate 90 mcg/actuation HFA aerosol inhaler 2 puff INHALATION Q4-6H PRN (Reason: shortness of breath or wheezing) Follow-up/Referrals: Ryley,ROSEY Carpenter [Primary Care Provider] - Time of Disposition: 16:17
== END 2024-09-19 16:23 | disposition home or self-care (01) ==
PROVIDERS: Emergency Provider Nurse Practitioner; PCP Physician Assistant
DX: J02.9 Acute pharyngitis, unspecified (principal); Z20.822 Contact with and (suspected) exposure to COVID-19; Z87.891 Personal history of nicotine dependence; E11.9 Type 2 diabetes mellitus without complications; Z79.84 Long term (current) use of oral hypoglycemic drugs; Z85.41 Personal history of malignant neoplasm of cervix uteri
CPT/HCPCS: 87081; 87426; 87804; 87880; 99213; G0463

== ENCOUNTER 2025-01-23 17:40 | Emergency (ER) | payer SELFPAY ==
[2025-01-23 17:44] VITALS: BP 127/61; PULSE 77; RESP 18; TEMP 36.8; O2SAT 98
--- OUTSIDE RECORDS SUMMARY | 2025-01-23 17:44 | XMS_ITS | Encounter Summary ---
Author Organization [facility] Address [address] [place] [address] Phone Care Team Providers Care Ship'S Pilot Name Role Phone Jourdan Hedrick PAC Primary Care Provider [phone] Evaristo Garcia MD Unavailable Yady Thompson MD Unavailable Encounter Details Date Type Department Care Team (Late st Contact Info) Description 01/31/2023 [facility] [address] [place] [id number] Jourdan Hedrick, PAC [address] [place] [address] Social History Tobacco Use Types [...] - 19 04/01/2024 04/01/2024 04/01/2024 8:05 PM SURETY BOND AGENT Influenza 04/01/2024 04/01/2024 04/08/2024 12:1 6 AM SURETY BOND AGENT documented as of this encounter Care Teams Ship'S Pilot Relationship Specialty Start Date End Date Jourdan Hedrick, [facility] [address] [place] [address] PCP - General Physician Storage Engineer 04/24/20 Evaristo Garcia MD [address] [id number] Consulting Physician Endocrinology 10/10/23 12/25/23 Yady Thompson MD 2 [facility] [address] [address] Consulting Physician Cardiology 10/11/24 documented as of this encounter
--- OUTSIDE RECORDS SUMMARY | 2025-01-23 17:44 | XMS_ITS | Encounter Summary ---
Author Organization [facility] Healthcare Address [address] [place] [address] Care Team Providers Care Science Professor Name Role Phone Jourdan Hedrick Primary Care Provider [phone] Encounter Details Date Type Department Care Team (Latest Contact Info) Description 12/30/2024 Results Follow-Up [facility] Gastroenterology at [address] [place] [address] Keon Campoverde NP 4 [facility] [address] [place] [address] Vitamin D 25 hydroxy, Vitamin B12, Folate, Additional followed-up results: 4 Social History Tobacco Use Types Packs/Day Years [...] on file 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 Screening test to rule out celiac disease came back normal. INE ENGINEER documented in this encounter Plan of Treatment Not on file documented as of this encounter Visit Diagnoses Not on filedocumented in this encounter Care Teams Science Professor Relationship Specialty Start Date End Date Jourdan Hedrick PA [address] [place] [address] PCP - General Family Practice 06/08/20 documented as of this encounter
--- OUTSIDE RECORDS SUMMARY | 2025-01-23 17:44 | XMS_ITS | Clinical Summary ---
Author Organization [facility] Address [address] [place] [address] Care Team Providers Care Blade Boner Name Role Phone Jourdan Hedrick Primary Care Provider [phone] Allergies Active Allergy Reactions Criticality Noted Date Comments Ciprofloxacin Rash Medium 06/08/2020 Erythromycin Other (See comments) Reaction: Unknown, , Metronidazole Other (See comments) Low 02/25/2019 Yeast infection Gadolinium-Containing Contrast Media Unknown 01/07/2023 Contrast Media (Gadolinium-Based): (Other (Unspecified)) Iodinated Contrast Media Shortness of breath,Other (See comments) High Reaction: Short of breath, Throat Swelling, Lactose Unknown 07/16/2023 Penicillins Hives,Swelling Medium Reaction: Unknown, , Medications Jardiance 25 mg tablet 04/29/19 24 Active polyethylene glycol (MIRALAX) 17 gram/dose bulk powder Take 1 capful daily as needed for constipation management. 595 g 3 07/16/19 24 Active SITagliptin phosphate (Januvia) 100 mg tablet Take 1 tablet (100 mg total) by mouth daily Active senna-docusate (PERICOLACE) 8.6-50 mg Take 1-2 pills nightly for constipation management. 180 tablet 3 09/09/19 25 Active omeprazole OTC (PriLOSEC OTC) 20 mg EC tablet Take 1 tablet (20 mg total) by mouth daily Active hydrocortisone (ANUSOL-HC) 25 mg suppository Insert 1 suppository (25 mg total) into the rectum 2 (two) times a day as needed for hemorrhoids 24 suppository 3 12/23/19 25 Active Active Problems Problem Noted Date Diagnosed [...] Encounters Date Type Department Care Team Description 12/30/2024 Results Follow-Up [facility] Gastroenterology at [address] [place] [phone] Keon Campoverde NP Vitamin D 25 hydroxy, Vitamin B12, Folate, Additional followed-up results: 4 12/22/2024 3:30 PM RAIL SPECIALIST Lab [facility] [address] [place] [address] Gastroesophageal reflux disease without esophagitis 12/22/2024 3:00 PM RAIL SPECIALIST Office Visit [facility] Gastroenterology at [address] [place] [address] Keon Campoverde NP Irritable bowel syndrome with constipation (Primary Dx); Gastroesophageal reflux disease without esophagitis; Colon cancer screening; Internal hemorrhoids 11/10/2024 2:30 PM CDT Office Visit [facility] Diabetes Endocrine Care at [address] [place] [phone] Annetta Kearney, Type 2 diabetes mellitus with [...] on file Legal Sex Female 12:57 AM RAIL SPECIALIST Gender Identity Not on file Sexual Orientation Not on file Last Filed Vital Signs Vital Sign Reading Time Taken Comments Blood Pressure 124/79 12/22/2024 3:00 PM RAIL SPECIALIST Pulse 71 12/22/2024 3:00 PM RAIL SPECIALIST Temperature 35.8 C (96.4 F) 11/01/2020 1:01 PM CDT Respiratory Rate 20 06/08/2020 1:39 PM CDT Oxygen Saturation 96% 12/22/2024 3:00 PM RAIL SPECIALIST Inhaled Oxygen Concentration - - Weight 76.5 kg (168 lb 11.2 oz) 12/22/2024 3:00 PM RAIL SPECIALIST Height 162.6 cm (5' 4) 12/22/2024 3:00 PM RAIL SPECIALIST Body Mass Index 28.96 12/22/2024 3:00 PM RAIL SPECIALIST Plan of Treatment Health Maintenance Due Date Last Done Comments Albumin Creatinine Ratio, Urine 1977 Colon Cancer Screening-Colonoscopy 1977 Depression Screening 1977 Hepatitis C Screening 1977 Dilated Eye Exam 1977 Lipid Panel 1977 DTaP/Tdap/Td Vaccine (1 - Tdap) 1988 Hepatitis B Screening 05/22/1995 Regular Well Visit/Exam 18-64 05/22/1995 Pneumococcal vaccine <65 (1 of 2 - PCV) 1996 Cervical Cancer Screening 08/25/2024 08/26/2023 Influenza Vaccine (#1) 2024 12/19/2014 Hemoglobin A1C 05/10/2025 11/10/2024, 06/2 05/2024, 05/05/2024, Additional history exists Breast Cancer Screening-Mammogram 09/01/2025 09/01/2024, 09/01/2024, 08/25/2023, Additional history exists eGFR 09/28/2025 09/28/2024, 08/03/2024, 06/04/2024, Additional history exists Foot Exam 11/10/2025 11/10/2024, 11/04/2023 Procedures Procedure Name Priority Date/Time Associated Diagnosis Comments TISSUE TRANSGLUTAMINASE, IGA Routine 12/22/2024 3:34 PM RAIL SPECIALIST CELIAC REFLEX PANEL Routine 12/22/2024 3 :34 PM RAIL SPECIALIST Gastroesophageal reflux disease without esophagitis MAGNESIUM Routine 12/22/2024 3:34 PM RAIL SPECIALIST Gastroesophageal reflux disease without esophagitis IRON PROFILE W/ IBC Routine 12/22/2024 3 :34 PM RAIL SPECIALIST Gastroesophageal reflux disease without esophagitis FOLATE Routine 12/22/2024 3:34 PM RAIL SPECIALIST Gastroesophageal reflux disease without esophagitis VITAMIN B12 Routine 12/22/2024 3:34 PM RAIL SPECIALIST Gastroesophageal reflux disease without esophagitis VITAMIN D 25 HYDROXY Routine 12/22/2024 3:34 PM RAIL SPECIALIST Gastroesophageal reflux disease without esophagitis POCT HEMOGLOBIN A1C Routine 11/10/2024 2 :42 PM CDT Type 2 diabetes mellitus with hyperglycemia, without long-term current use of insulin (HCC) EGFR Routine 09/28/2024 from Last 3 Months or Most Recently Relevant to Health Maintenance Results * Iron profile w/ IBC (12/22/2024 3:34 PM RAIL SPECIALIST) Iron 81 35 - 145 mcg/dL TIBC 292 250 - 400 mcg/dL TARIK ALVARENGA ([place]) Transferrin saturation 28 20 - 50 % TARIK ALVARENGA ([place]) Blood 12/22/2024 3:34 PM RAIL SPECIALIST 12/22/2024 4:20 PM RAIL SPECIALIST Keon Campoverde MAXILLOFACIAL SURGEON LAB BLOOD ORDERABLE S Final Result TARIK ALVARENGA ([place]) 1 [facility] Department [place] [address] * Celiac reflex panel (12/22/2024 3:34 PM RAIL SPECIALIST) IgA 267 61 - 356 mg/dL [facility] Lab Celiac disease interpretation See Comment TARIK ALVARENGA ([place]) Comment: See Comment: Negative serology. Celiac disease unlikely. However, approximately 10% of patients with celiac disease are seronegative. Also, patients who are already adhering to a gluten-free diet may be seronegative. If celiac disease is highly clinically suspected, consider HLA-DQ typing. Test Performed by: [facility] [place] [address] Equipment Service Engineer: James Crawford Ph.D.; CLIA# [id number] Blood 12/22/2024 3:34 PM RAIL SPECIALIST 12/22/2024 4:20 PM RAIL SPECIALIST [facility] MAXILLOFACIAL SURGEON LAB BLOOD ORDERABLE S Final Result Performing Organization Address City/[facility]/ZIP Co de Phone Number TARIK ALVARENGA ([place]) [address] [place] [address] [place] ref [facility] * Tissue transglutaminase IgA (TGG-IgA Ab) (12/22/2024 3:34 PM RAIL SPECIALIST) [facility] TTG ab, IgA <1.2 <4.0 (Negative) units/mL Comment: Test Performed by: [place] [address] Equipment Service Engineer: James Crawford Ph.D.; CLIA# [id number] Interpretive data Negative: <15 units/mL Positive: > or equal to 15 units/mL Current interpretive data was last revised on 2016. Testing performed by: [facility], [address] [place]., [address] Blood 12/22/2024 3:34 PM RAIL SPECIALIST 12/22/2024 4:20 PM RAIL SPECIALIST Keon Campoverde MAXILLOFACIAL SURGEON LAB BLOOD ORDERABLE S Final Result Performing Organization Address City/[facility]/ZIP Co de Phone Number [facility] ([place]) [address] [place] [address] * Vitamin D 25 hydroxy (12/22/2024 3:34 PM RAIL SPECIALIST) [facility] Vitamin D 25-OH 39 30 - 80 ng/mL Blood 12/22/2024 3:34 PM RAIL SPECIALIST 12/22/2024 4:20 PM RAIL SPECIALIST [facility] MAXILLOFACIAL SURGEON LAB BLOOD ORDERABLE S Final Result TARIK ALVARENGA ([place]) 1 [facility] [place] [address] * Magnesium (12/22/2024 3:34 PM RAIL SPECIALIST) Magnesium 2.0 1.4 - 2.5 mg/dL Blood 12/22/2024 3:34 PM RAIL SPECIALIST 12/22/2024 4:20 PM RAIL SPECIALIST [facility] MAXILLOFACIAL SURGEON LAB BLOOD ORDERABLE S Final Result TARIK ALVARENGA ([place]) 1 [facility] [place] [address] * Folate (12/22/2024 3:34 PM RAIL SPECIALIST) Pathologist [facility] Folic acid >20.0 >=5.0 ng/mL Blood 12/22/2024 3:34 PM RAIL SPECIALIST 12/22/2024 4:20 PM RAIL SPECIALIST Keon Waltersbeth [facility] MAXILLOFACIAL SURGEON LAB BLOOD ORDERABLE S Final Result TARIK ALVARENGA ([place]) 1 [facility] [place] [address] * Vitamin B12 (12/22/2024 3:34 PM RAIL SPECIALIST) Vitamin B12 285 230 - 1,250 pg/mL Blood 12/22/2024 3:34 PM RAIL SPECIALIST 12/22/2024 4:20 PM RAIL SPECIALIST [facility] MAXILLOFACIAL SURGEON LAB BLOOD ORDERABLE S Final Result TARIK ALVARENGA ([place]) 1 [facility] [place] [address] * (ABNORMAL) POCT hemoglobin A1c (11/10/2024 2:42 PM CDT) Hemoglobin A1C, POC 7.2(A) 4.0 - 5.6 % Blood 11/10/2024 2:42 PM CDT Annetta Kearney DO POINT OF CARE TEST ORDERABL ES Final Result * EGFR (09/28/2024) SCRIBED eGFR >60 >60 mL/min/1.73 m2 EXTERNAL LAB SCRIBED eGFR >60 >60 mL/min/1.73 m2 EXTERNAL LAB 09/28/2024 Historical Provider HEALTH MAINTENANCE Final Result EXTERNAL LAB from Last 3 Months or Most Recently Relevant to Health Maintenance Insurance [facility] Care Teams Blade Boner Relationship Specialty Start Date End Date Jourdan Hedrick PA [address] [place] [address] PCP - General Family Practice 06/08/20
--- OUTSIDE RECORDS SUMMARY | 2025-01-23 17:44 | XMS_ITS | Clinical Summary ---
Author Organization [facility] Address [address] [place] [address] Phone Care Team Providers Care Web Merchandiser Name Role Phone Jourdan Hedrick Primary Care Provider [phone] Yady Thompson MD Unavailable Allergies Active Allergy Reactions Criticality Noted Date [...] by mouth daily. 30 Tablet 03/24/2022 Active Lancets Misc Use to Test Blood Sugar 05/03/2024 Active Blood Glucose Monitoring Suppl (Contour Plus Blue) w/Device Kit USE DIRECTED TO TEST BLOOD GLUCOSE 09/17/2024 Active empagliflozin (JARDIANCE) 25 MG Tablet Take by mouth. 02/07/2024 Active glimepiride (AMARYL) 2 MG Tablet 06/04/2024 Active SITagliptin (Januvia) 100 MG Tablet Take 100 mg by mouth daily. Active SENNOSIDES-DOCU SATE SODIUM PO Take by mouth. Active ALBUTEROL SULFATE HFA IN take by inhalation. Active fluconazole (DIFLUCAN) 200 MG Tablet Take 200 mg by mouth daily. Active rosuvastatin (CRESTOR) 5 MG Tablet Take 5 mg by mouth daily. Active Active Problems Problem Noted Date Diagnosed Date Chest pain 10/08/2024 Left arm pain 10/08/2024 Type 2 diabetes mellitus wit hout complication, without long-term current use of insulin 10/08/2024 Dyslipidemia 10/08/2024 Immunizations Immunization Administration Dates Next Due Influenza, [...] Sign Reading Time Taken Comments Blood Pressure 134/88 10/08/2024 2:56 PM CDT Pulse 83 10/08/2024 2:56 PM CDT Temperature 36.8 C (98.2 F) 10/08/2024 2:56 PM CDT Respiratory Rate 16 10/08/2024 2:56 PM CDT Oxygen Saturation 98% 10/08/2024 2:56 PM CDT Inhaled Oxygen Concentration - - Weight 76.3 kg (168 lb 3.2 oz) 10/08/2024 2:56 P M CDT Height 162.6 cm (5' 4) 10/08/2024 2:56 PM CDT Body Mass Index 28.87 10/08/2024 2:56 PM CDT Plan of Treatment Health Maintenance Due Date Last Done Comments Diabetes: Foot Exam 1977 Hepatitis C Virus (HCV) Screening 1977 TdaP Immunization 1977 SARS-COV-2 Immunization (#1) 1982 Hepatitis B Immunization (1 of 3 - 19+ 3-dose series) 1996 Pneumococcal Immunization Combined (1 of 2 - PCV) 1996 HPV/Cotest 05/22/2007 Cologuard 2022 Colonoscopy 2022 Colorectal Cancer Screening 2022 Immunochemical Fecal Occult Blood 2022 11/02/2020 Influenza Immunization (#1) 2024 12/19/2014 Diabetes: Hemoglobin A1c 02/09/2025 025, 05/05/2024, 02/03/2024, Additional history exists Diabetes: Eye Exam 07/06/2025 07/06/2024 Mammogram 09/01/2025 09/01/2024, 07/0 09/2023, 08/25/2023 Diabetes: Nephropathy Screening 09/28/2025 09/28/2024, 06/04/2024, 07/09/2023, Additional history exists Cervical Cancer Screening ([facility]) [...] Procedure Name Priority Date/Time Associated Diagnosis Comments CMP (COMPREHENSIVE METABOLIC PANEL) STAT 09/28/2024 12:10 AM CDT JENNIFER SCREENING BILATERAL DIGITAL W CAD W TERESA Routine 09/01/2024 2:50 PM CDT Encounter for screening mammogram for malignant neoplasm of breast HEMOGLOBIN A1C W/ ESTIMATED GLUCOSE STAT 04/24/2020 12:08 PM PLATING MACHINE OPERATOR from Last 3 Months or Most Recently Relevant to Health Maintenance Results * (ABNORMAL) Comprehensive Metabolic Panel (Cmp) [id number] (09/28/2024 12:10 AM CDT) SODIUM 143 136 - 145 mmol/L 09/28/2024 12:51 AM CDT [facility] POTASSIUM 3.6 3.5 - 5.1 mmol/L 09/28/2024 12:51 AM CDT [facility] CHLORIDE 103 98 - 107 mmol/L 09/28/2024 12:51 AM CDT [facility] CO2, VENOUS 27 22 - 30 mmol/L 09/28/2024 12:51 AM CDT [facility] ANION GAP 16.6 <18.0 mmol/L 09/28/2024 12:51 AM CDT [facility] GLUCOSE 173(H) 70 - 99 mg/dL 09/28/2024 12:51 AM CDT [facility] BUN 13 5 - 18 mg/dL 09/28/2024 12:51 AM CDT [facility] CREATININE, BLOOD 0.82 0.60 - 1.00 mg/dL 09/28/2024 12:51 AM CDT [facility] BUN/CREATININE RATIO 16 12 - 20 ratio 09/28/2024 12:51 AM CDT [facility] TOTAL PROTEIN 7.9 6.0 - 8.0 g/dL 09/28/2024 12:51 AM CDT [facility] ALBUMIN 4.4 3.5 - 5.0 g/dL 09/28/2024 12:51 AM CDT [facility] A/G RATIO 1.3 1.0 - 2.2 09/28/2024 12:51 AM CDT [facility] CALCIUM 9.4 8.7 - 10.5 mg/dL 09/28/2024 12:51 AM CDT [facility] T BILI 0.2 0.2 - 1.2 mg/dL 09/28/2024 12:51 AM CDT [facility] SGOT (AST) 33 <43 U/L 09/28/2024 12:51 AM CDT [facility] SGPT (ALT) 45 <56 U/L 09/28/2024 12:51 AM CDT [facility] ALKALINE PHOSPHATASE 75 40 - 150 U/L 09/28/2024 12:51 AM CDT [facility] GFR, ESTIMATED >60 >=60 09/28/2024 12:51 AM CDT [facility] Comment: Creatinine Clearance is the preferred criteria for selecting drug dose adjustments in renally impaired patients. The GFR is provided as additional pertinent clinical information. GFR is reported in mL/min/1.73 sq m. Calculation based on the Chronic Kidney Disease Epidemiology Collaboration (CKD- EPI) equation refit without adjustment for race. GFR, EST. >60 >=60 025 12:51 AM CDT [facility] GFR, EST. NONAFRICAN >60 >=60 09/28/2024 12:51 AM CDT [facility] Blood Venipuncture / Unknown 09/28/2024 12:10 AM CDT 09/28/2024 12:20 AM CDT us Pantera Navarrete MD CHEMISTRY ORDERABLES Ashley l Result [facility] [address] [place] [address] * JENNIFER SCREENING BILATERAL DIGITAL W CAD W TERESA (09/01/2024 2:50 PM CDT) Anatomical Region Laterality Modality breast Bilateral Mammography 09/01/2024 3:23 PM CDT Narrative 09/09/2024 8:19 AM CDT - JENNIFER SCREENING BILATERAL DIGITAL W CAD [...] made to exams dated: 08/25/2023 and 08/27/2022 [facility]. BREAST TISSUE:The breasts are heterogeneously dense, which [...] next screening exam. Electronically signed by: Jese orr/michael:09/07/2024 22:30:02 Electric Golf Cart Repairers(s): RT Chas(R)(M), [facility] letter sent: Normal Exam Reading location: [place] [...] made to exams dated: 08/25/2023 and 08/27/2022 [facility]. BREAST TISSUE:The breasts are heterogeneously dense, which [...] next screening exam. Electronically signed by: Jese orr/michael:09/07/2024 22:30:02 Electric Golf Cart Repairers(s): Cristel Kern RT(R)(M), [facility]: Normal Exam Reading location: [place] Mammogram BI-RADS: Category 1: Negative us Diana Mcintyre CORPORATE TRAVEL CONSULTANT, ELECTRICAL SYSTEM SPECIALIST IMG MAMMO ORDERABLES F inal Result * (ABNORMAL) Hemoglobin A1C w/ Estimated Glucose (04/24/2020 12:08 PM PLATING MACHINE OPERATOR) HGB-A1C 6.7(H) 4.0 - 6.0 % 04/24/2020 2:29 PM PLATING MACHINE OPERATOR [facility] Est Average Glucose 145.6 mg/dL 04/24/2020 2:29 PM PLATING MACHINE OPERATOR [facility] Blood Venous Catheter (IV) / Unknown 04/24/2020 12:08 PM PLATING MACHINE OPERATOR 04/24/2020 12:14 PM PLATING MACHINE OPERATOR Narrative [facility] - 04/24/2020 2:29 PM PLATING MACHINE OPERATOR HEMOGLOBIN A1C: DIABETIC PATIENTS: WELL-CONTROLLED: 6.2 - 7.0 INTERMEDIATE WELL-CONTROLLED: 7.0 - 9.0 POORLY-CONTROLLED: >9.0 Liliana Erazo Page PAC CHEMISTRY ORDERABLES Final R esult [facility] [address] [place] [address] from Last 3 Months or Most Recently Relevant to Health Maintenance Insurance [employer]ICAID [employer] Care Teams Web Merchandiser Relationship Specialty Start Date End Date Jourdan Hedrick, [facility] [address] [place] [address] PCP - General Physician Larriman Helper 04/24/20 Yady Thompson MD [address] [place] [id number] Consulting Physician Cardiology 10/11/24
--- NOTE | 2025-01-23 17:51 | ED_ITS ---
HPI - URI/Sore Throat General Chief Complaint: Upper Respiratory Infection Stated Complaint: Sore Throat Time Seen by Provider: 01/23/25 17:52 History of Present Illness HPI Narrative: 49 y/o female presented for c/o intermittent sore throat, onset 5 days. Endorses throat feels like 'burning.' Endorses post nasal drainage and ears itching with some pressure bilaterally. Denies n/v/d/f/c. Denies sick contacts. Says she wears a cpap and throat is often dry. Also takes omeprazole as directed for gerd. Related Data Home Medications ?Medication ?Instructions ?Recorded ?Confirmed ?Last Taken ?Type albuterol sulfate 90 mcg/actuation 2 puff inhalation Q 4-6H PRN 02/07/24 06/04/24 Unknown History aerosol inhaler shortness of breath or wheez ing empagliflozin 25 mg tablet mg 01/23/25 Unknown Histor y (Jardiance) omeprazole 01/23/25 Unknown History sennosides 8.6 mg-docusate sodium PO 01/23/25 Unknown History 50 mg tablet (Stimulant Laxative Plus) sitagliptin phosphate 100 mg mg 01/23/25 Unknown Hist ory tablet (Januvia) Allergies Allergy/AdvReac Type Severity Reaction Status Date / Time erythromycin base Allergy Intermediate Unknown Verified 01/23/25 17:53 Penicillins Allergy Rash Verified 01/23/25 17:53 Review of Systems Review of Systems: CONSTITUTIONAL: Denies body aches, fever, chills, or sweats. EYES: Denies visual changes, redness, or discharge. ENT: reports sore throat rhinorrhea, otalgia. CARDIOVASCULAR: Denies chest pain, palpitations, or edema. RESPIRATORY: Denies dyspnea. GASTROINTESTINAL: Denies abdominal pain, nausea, vomiting, or diarrhea. SKIN: Denies rash NEUROLOGIC: Denies headache PMFSH Past Medical History Medical History Ear infection Diabetes Cervical cancer That included lymph nodes and received radiation and chemo delivery delivered Hernia Enlarged liver Surgical History Surgical History H/O tooth extraction 05/25/2024 H/O section X3 Family History Family History Father Hypertension Cerebrovascular accident Mother Diabetes mellitus Paranoid schizophrenia Social History Social History Smoking status: Former smoker Tobacco type: cigarettes Second hand tobacco smoke exposure: No Smoking end date: 02/17/99 Alcohol intake: never Substance use: never Living arrangements: with family Occupation/Education: unemployed Gender identity (if verbalized by the patient): Female Sexual Orientation (if Verbalized by the Patient): Straight or Heterosexual Exam Narrative: GENERAL: well-appearing, no acute distress. EYES: conjunctivae clear ENT: Mucous membranes moist. TMs pearly montageu with normal light reflex bilaterally; no tragal tenderness. Oropharynx not erythematous without lesions. Tonsils enlarged 2+ and without exudate. No drooling, no hoarseness, no trismus, uvula midline. No tripod positioning, hot potato voice, or soft palate swelling. NECK: Supple. No lymphadenopathy CHEST: Clear to auscultation, breath sounds equal. No respiratory distress, speaks in full sentences. HEART: Regular rate and rhythm. No murmur heard. SKIN: Warm, dry, no rash. NEURO: Alert and oriented x3. Course Course Level of Care: Express Care Visit Vital Signs Vital signs: Vital Signs Temperature 98.3 F 01/23/25 17:44 Pulse Rate 77 01/23/25 17:44 Respiratory Rate 18 01/23/25 17:44 Blood Pressure 127/61 01/23/25 17:44 Pulse Oximetry 98 01/23/25 17:44 Oxygen Delivery Room Air 01/23/25 17:44 Temperature 98.3 F 01/23/25 17:44 Pulse Rate 77 01/23/25 17:44 Respiratory Rate 18 01/23/25 17:44 Blood Pressure 127/61 01/23/25 17:44 Pulse Oximetry 98 01/23/25 17:44 Oxygen Delivery Room Air 01/23/25 17:44 MDM MDM Narrative Medical decision making narrative: Discussed physical exam findings. Neg strep. Advised supportive measures and signs/symptoms to go to the ER. Pt is appropriate for outpt treatment and f/u. Differential Diagnosis Differential Diagnosis: pharyngitis, strep, URI, gerd Discharge Plan Discharge Clinical Impression: Pharyngitis Patient Disposition: Home Condition: Stable Instructions: Antibiotic Form, Pharyngitis (ED) Additional Instructions: Rapid strep swab was negative today You will be notified in a few days if the culture comes back positive for strep, and appropriate antibiotics will be called in at that time. if symptoms are due to a viral illness, it is not treated with antibiotics. Viral symptoms can be present for up to 10-14 days. Recommendations: Flonase spray and Zyrtec for sinus congestion or drainage Tylenol every 8 hours as needed for pain/fever Soft foods, cool liquids, warm tea. Gargle with warm saltwater twice a day. Chloraseptic spray and throat lozenges. Rest and stay hydrated. --Follow up with your PCP --Go to the ER immediately if you cannot swallow your saliva, trouble breathing/wheezing, throat swelling, pain is persistent and severe Patient Language: Frisian Prescriptions: No Action albuterol sulfate 90 mcg/actuation HFA aerosol inhaler 2 puff INHALATION Q4-6H PRN (Reason: shortness of breath or wheezing) sennosides-docusate sodium [Stimulant Laxative Plus] 8.6-50 mg tablet PO Januvia 100 mg tablet Jardiance 25 mg tablet omeprazole Follow-up/Referrals: Ryley,ROSEY Carpenter [Primary Care Provider] Time of Disposition: 18:01
[2025-01-23 18:01] LABS: EDSTREPNEGPOS1 Negative (Negative)
== END 2025-01-23 18:06 | disposition home or self-care (01) ==
PROVIDERS: Emergency Provider Nurse Practitioner Family; PCP Physician Assistant
DX: J02.9 Acute pharyngitis, unspecified (principal); E11.9 Type 2 diabetes mellitus without complications; Z79.84 Long term (current) use of oral hypoglycemic drugs; Z85.41 Personal history of malignant neoplasm of cervix uteri; Z92.21 Personal history of antineoplastic chemotherapy; Z92.3 Personal history of irradiation; Z87.891 Personal history of nicotine dependence
CPT/HCPCS: 87081; 87880; 99213; G0463